=== PATIENT | male | born 1935 | race African-American/Black ===

== ENCOUNTER 2016-06-27 22:26 | Inpatient (IN) | payer MEDICARE, OTHER ==
--- NOTE | 2016-06-27 22:56 | PDOC ---
History of Present Illness - History of Present Illness Initial Comments: 06/27/16 22:57 The patient is an 80 year old male with history of hypertension, diabetes, and dementia, brought in by EMS for altered mental status. Per the patient's son, the patient seemed less responsive than his baseline this evening. Prior to this , the son last saw the patient this morning, when he had no acute complaints. On evaluation, the patient seems not very responsive, but denies any physical complaints. No fever or chills. No headache, paresthesias, or focal weakness. No nausea, vomiting, or diarrhea. NKDA Denies smoking, drinking, or drugs. <Melly Beyer - Last Filed: 06/28/16 00:40> - General History Source: Family (son) Exam Limitations: Dementia <Fabian Huitron - Last Filed: 06/28/16 00:47> - General Chief Complaint: Altered Mental Status Stated Complaint: AMS Time Seen by Provider: 06/27/16 22:48 Past History <Melly Beyer - Last Filed: 06/28/16 00:40> - Psycho/Social/Smoking Cessation Hx Suicidal Ideation: No Smoking History: Unknown if ever smoked Have you smoked in the past 12 months: No Information on smoking cessation initiated: No Hx Alcohol Use: No Drug/Substance Use Hx: No <Fabian Huitron - Last Filed: 06/28/16 00:47> - Past Medical History Allergies/Adverse Reactions: Allergies Allergy/AdvReac Type Severity Reaction Status Date / Time No Known Allergies Allergy Verified 06/27/16 22:51 Home Medications: Ambulatory Orders Glipizide 10 mg PO BID 06/27/16 Donepezil HCl [Aricept -] 10 mg PO DAILY 06/28/16 Furosemide 20 mg PO DAILY 06/28/16 Gabapentin 100 mg PO TID 06/28/16 Losartan Potassium 25 mg PO DAILY 06/28/16 Metformin HCl 500 mg BID 06/28/16 Pantoprazole Sodium [Protonix] 40 mg DAILY 06/28/16 Simvastatin 40 mg PO HS 06/28/16 Review of Systems - Review of Systems Able to Perform ROS?: Yes Comments:: 06/27/16 22:59 GENERAL/CONSTITUTIONAL: No fever or chills. No weakness. HEAD, EYES, EARS, NOSE AND THROAT: No change in vision. No ear pain or discharge. No sore throat CARDIOVASCULAR: No chest pain or shortness of breath. RESPIRATORY: No cough, wheezing, or hemoptysis. GASTROINTESTINAL: No nausea, vomiting, diarrhea or constipation. GENITOURINARY: No dysuria, frequency, or change in urination. MUSCULOSKELETAL: No joint or muscle swelling or pain. No neck or back pain. SKIN: No rash NEUROLOGIC: Altered mental status. No headache, vertigo, loss of consciousness, or change in strength/sensation. ENDOCRINE: No increased thirst. No abnormal weight change. HEMATOLOGIC/LYMPHATIC: No anemia, easy bleeding, or history of blood clots. ALLERGIC/IMMUNOLOGIC: No hives or skin allergy. <Melly Beyer - Last Filed: 06/28/16 00:40> *Physical Exam - Vital Signs Last Vital Signs Temp Pulse Resp BP Pulse Ox 76 14 150/118 100 06/27/16 22:47 06/27/16 22:47 06/27/16 22:47 06/27/16 22:47 - Physical Exam Comments: 06/27/16 23:00 GENERAL: Awake, alert, and fully oriented, in no acute distress HEAD: No signs of trauma EYES: PERRLA, EOMI, sclera anicteric, conjunctiva clear ENT: Auricles normal inspection, hearing grossly normal, nares patent, oropharynx clear without exudates. Moist mucosa NECK: Normal ROM, supple, no lymphadenopathy, JVD, or masses LUNGS: Breath sounds equal, clear to auscultation bilaterally. No wheezes, and no crackles HEART: Regular rate and rhythm, normal S1 and S2, no murmurs, rubs or gallops ABDOMEN: Soft, nontender, normoactive bowel sounds. No guarding, no rebound. No masses EXTREMITIES: Normal range of motion, no edema. No clubbing or cyanosis. No cords, erythema, or tenderness NEUROLOGICAL: Cranial nerves II through XII grossly intact. Normal speech, normal gait. Moving all four extremities. 5/5 motor strength, sensation intact throughout. SKIN: Warm, Dry, normal turgor, no rashes or lesions noted. <Melly Beyer - Last Filed: 06/28/16 00:40> - Vital Signs Last Vital Signs Temp Pulse Resp BP Pulse Ox 76 14 150/118 100 06/27/16 22:47 06/27/16 22:47 06/27/16 22:47 06/27/16 22:47 <Fabian Huitron - Last Filed: 06/28/16 00:47> Heart Score/ECG Review #1 06/27/16 23:08 EKG obtained 23:00 Normal sinus rhythm at 85 bpm. Left anterior fascicular block. Abnormal EKG. <Melly Beyer - Last Filed: 06/28/16 00:40> ED Treatment Course - LABORATORY CBC & Chemistry Diagram: 06/27/16 22:59 06/27/16 22:59 - RADIOLOGY Radiograph Interpretation: 06/28/16 00:09 CT of head, read and interpreted by Dr. Fatima, reveals no significant interval change or acute intracranial pathology. <Melly Beyer - Last Filed: 06/28/16 00:40> - LABORATORY CBC & Chemistry Diagram: 06/27/16 22:59 06/27/16 22:59 <Fabian Huitron - Last Filed: 06/28/16 00:47> Medical Decision Making - Medical Decision Making 06/28/16 00:28 Placed call to patient's PCP, Dr. Luis Balderas at [phone]. Awaiting call back. 06/28/16 00:40 Second call placed to Dr. Balderas. Awaiting call back. <Melly Beyer - Last Filed: 06/28/16 00:40> - Medical Decision Making 06/28/16 00:46 Dr. Huitron: The scribe's documentation has been prepared under my direction and personally reviewed by me in its entirery. I confirm that the note above accurately reflects all work, treatment, procedures, and medical decision making performed by me. Patient will be admitted for IV hydration and reevaluation. Spoke to patient's PCP who will admit to Med surg. <Fabian Huitron - Last Filed: 06/28/16 00:47> *DC/Admit/Observation/Transfer - Attestations Scribe Attestion: 06/27/16 23:02 Documentation prepared by Melly Beyer, acting as medical clerk for Fabian Huitron DO. <Melly Beyer - Last Filed: 06/28/16 00:40> - Discharge Dispostion Admit: Yes <Fabian Huitron - Last Filed: 06/28/16 00:47> Diagnosis at time of Disposition: Renal failure Altered mental status Qualifiers: Altered mental status type: unspecified Qualified Code(s): R41.82 - Altered mental status, unspecified - Referrals Referrals: Luis Balderas MD [Primary Care Provider] -
[2016-06-27 22:57] VITALS: BMI 28.0
[2016-06-27 23:27] LABS: VENOUS PH 7.34 (7.32-7.42)
[2016-06-27 23:28] LABS: VENOUS BLOOD GAS HCO3 26.2 meq/L (19-25)
[2016-06-27 23:37] LABS: BASOPHIL 0.6 % (0-2.0); MCH 25.9 pg (25.7-33.7); MCHC 32.1 g/dl (32.0-35.9); MEAN CELL VOLUME 80.6 fl (80-96); MEAN PLT VOLUME 8.9 fl (7.5-11.1); NEUTROPHILS 42.7 % (42.8-82.8); PLATELET COUNT 206 K/MM3 (134-434); RDW 14.8 % (11.9-15.9); WHITE BLOOD COUNT 4.8 K/mm3 (4.0-10.0)
[2016-06-27 23:47] LABS: INR 1.04 (0.82-1.09); PROTHROMBIN TIME (PATIENT) 11.5 SEC (9.98-11.88)
[2016-06-28] LABS: ALBUMIN 3.5 g/dl (3.4-5.0); CALCIUM 9.2 mg/dL (8.5-10.1); CREATININE 2.3 mg/dL (0.7-1.3)
[2016-06-28 00:04] LABS: BILIRUBIN,TOTAL 0.7 mg/dL (0.2-1.0); TOT PROT 6.9 g/dl (6.4-8.2); TROPONIN I 0.02 ng/ml (0.00-0.05)
[2016-06-28] MEDS ORDERED: SODIUM CHLORIDE 1,000 ML IV STA (00:12)
[2016-06-28] MEDS: SODIUM CHLORIDE 0.45% 1,000 ML IV SCH (01:00)
[2016-06-28] MEDS ORDERED: ACETAMINOPHEN 325 MG TABLET (FP) PO PRN (01:00)
[2016-06-28] MEDS ORDERED: glipiZIDE 5 MG TABLET (FP) ONE (07:12)
[2016-06-28] MEDS ORDERED: GABAPENTIN 100 MG CAPSULE (FP) ONE (07:12)
[2016-06-28] MEDS: GABAPENTIN 100 MG CAPSULE (FP) PO SCH ×3 (07:19→21:00)
[2016-06-28] MEDS: glipiZIDE 10 MG TABLET (FP) PO SCH ×2 (07:19→17:05)
[2016-06-28] MEDS ORDERED: PANTOPRAZOLE 40 MG TABLET (FP) ONE (09:07)
[2016-06-28] MEDS ORDERED: DONEPEZIL HCL 5 MG TABLET (FP) ONE (09:07)
[2016-06-28] MEDS ORDERED: LOSARTAN POTASSIUM 25 MG TABLET ONE (09:07)
[2016-06-28] MEDS: PANTOPRAZOLE 40 MG TABLET (FP) PO SCH (09:13)
[2016-06-28] MEDS: DONEPEZIL HCL 10 MG TABLET (FP) PO SCH (09:13)
--- NOTE | 2016-06-28 09:39 | HP ---
Admitting History and Physical - Primary Care Physician PCP: Luis Balderas - Admission Chief Complaint: AMS History of Present Illness: ER HISTORY History of Present Illness - History of Present Illness Initial Comments: 06/27/16 22:57 The patient is an 80 year old male with history of hypertension, diabetes, and dementia, brought in by EMS for altered mental status. Per the patient's son, the patient seemed less responsive than his baseline this evening. Prior to this , the son last saw the patient this morning, when he had no acute complaints. On evaluation, the patient seems not very responsive, but denies any physical complaints. No fever or chills. No headache, paresthesias, or focal weakness. No nausea, vomiting, or diarrhea. PT SEEN BY ME IN ER Pt is known to me from the office- does not remember me, he has no complaints. Just mumbles, not making sense. Baseline dementia, lives at home with son. Pt responds to commands . 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's Cardiovascular: Yes: HTN, Hyperlipdemia - Smoking History Smoking history: Unknown if ever smoked Have you smoked in the past 12 months: No - Alcohol/Substance Use Hx Alcohol Use: No Home Medications - Allergies Allergies/Adverse Reactions: Allergies Allergy/AdvReac Type Severity Reaction Status Date / Time No Known Allergies Allergy Verified 06/27/16 22:51 - Home Medications Home Medications: Ambulatory Orders Glipizide 10 mg PO BID 06/27/16 Donepezil HCl [Aricept -] 10 mg PO DAILY 06/28/16 Furosemide 20 mg PO DAILY 06/28/16 Gabapentin 100 mg PO TID 06/28/16 Losartan Potassium 25 mg PO DAILY 06/28/16 Metformin HCl 1,000 mg BID 06/28/16 Pantoprazole Sodium [Protonix] 40 mg DAILY 06/28/16 Simvastatin 40 mg PO HS 06/28/16 Review of Systems - Review of Systems Constitutional: denies: Chills, Fever, Lethargy, Loss of Appetite, Weakness Cardiovascular: denies: Chest Pain Respiratory: denies: Cough Gastrointestinal: denies: Abdominal Pain Genitourinary: denies: Burning, Dysuria Physical Examination Vital Signs: Vital Signs Temperature Pulse Rate 81 06/28/16 07:04 Respiratory Rate 22 06/28/16 07:04 Blood Pressure 148/81 06/28/16 07:04 O2 Sat by Pulse Oximetry (%) 99 06/28/16 07:04 Constitutional: Yes: No Distress, Calm Cardiovascular: Yes: Regular Rate and Rhythm Respiratory: Yes: Diminished Gastrointestinal: Yes: Normal Bowel Sounds, Soft, Abdomen, Obese. No: Distention, Tenderness Edema: No Neurological: Yes: Alert Labs: Laboratory Last Values WBC 4.8 K/mm3 (4.0-10.0) 06/27/16 22:59 RBC 5.45 M/mm3 (4.00-5.60) 06/27/16 22:59 Hgb 14.1 GM/dL (11.7-16.9) 06/27/16 22:59 Hct 44.0 % (35.4-49) 06/27/16 22:59 MCV 80.6 fl (80-96) 06/27/16 22:59 MCHC 32.1 g/dl (32.0-35.9) 06/27/16 22:59 RDW 14.8 % (11.9-15.9) 06/27/16 22:59 Plt Count 206 K/MM3 (134-434) 06/27/16 22:59 MPV 8.9 fl (7.5-11.1) 06/27/16 22:59 Neutrophils % 42.7 % (42.8-82.8) L 06/27/16 22:59 Lymphocytes % 44.2 % (8-40) H 06/27/16 22:59 Monocytes % 11.5 % (3.8-10.2) H 06/27/16 22:59 Eosinophils % 1.0 % (0-4.5) 06/27/16 22:59 Basophils % 0.6 % (0-2.0) 06/27/16 22:59 INR 1.04 (0.82-1.09) 06/27/16 22:59 VBG pH 7.34 (7.32-7.42) 06/27/16 23:17 POC VBG pCO2 50.0 mmHg (38-52) 06/27/16 23:17 POC VBG pO2 28.5 mmHg (28-48) 06/27/16 23:17 Mixed VBG HCO3 26.2 meq/L (19-25) H 06/27/16 23:17 Sodium 138 mmol/L (136-145) 06/27/16 22:59 Potassium 4.6 mmol/L (3.5-5.1) 06/27/16 22:59 Chloride 102 mmol/L (98-107) 06/27/16 22:59 Carbon Dioxide 25 mmol/L (21-32) 06/27/16 22:59 Anion Gap 11 (8-16) 06/27/16 22:59 BUN 28 mg/dL (7-18) H 06/27/16 22:59 Creatinine 2.3 mg/dL (0.7-1.3) H 06/27/16 22:59 Creat Clearance w eGFR 27.43 (>60) 06/27/16 22:59 Random Glucose 129 mg/dL (74-106) H 06/27/16 22:59 Calcium 9.2 mg/dL (8.5-10.1) 06/27/16 22:59 Total Bilirubin 0.7 mg/dL (0.2-1.0) 06/27/16 22:59 AST 32 U/L (15-37) 06/27/16 22:59 ALT 29 U/L (12-78) 06/27/16 22:59 Alkaline Phosphatase 70 U/L (45-117) 06/27/16 22:59 Creatine Kinase 185 IU/L (39-308) 06/27/16 22:59 Creatine Kinase Index 1.7 % (0.0-5.0) 06/27/16 22:59 CK-MB (CK-2) 3.158 ng/ml (0.5-3.6) 06/27/16 22:59 CK-MB (CK-2) Rel Index Cancelled 06/27/16 22:59 Troponin I 0.02 ng/ml (0.00-0.05) 06/27/16 22:59 Total Protein 6.9 g/dl (6.4-8.2) 06/27/16 22:59 Albumin 3.5 g/dl (3.4-5.0) 06/27/16 22:59 Blood Type B POSITIVE 06/27/16 22:59 Antibody Screen Negative 06/27/16 22:59 Imaging - Results Chest X-ray: Image Reviewed (no infiltrate) Cat Scan: Report Reviewed (Negative) EKG: Image Reviewed (sinus) Problem List - Problems (1) Altered mental status Code(s): R41.82 - ALTERED MENTAL STATUS, UNSPECIFIED Qualifiers: Altered mental status type: unspecified Qualified Code(s): R41.82 - Altered mental status, unspecified (2) Renal failure Code(s): N19 - UNSPECIFIED KIDNEY FAILURE (3) Dementia Code(s): F03.90 - UNSPECIFIED DEMENTIA WITHOUT BEHAVIORAL DISTURBANCE (4) HTN (hypertension) Code(s): I10 - ESSENTIAL (PRIMARY) HYPERTENSION Assessment/Plan PLAN Check UA and culture Hold off ARB Check kidney and bladder sonogram IV fluids check urine output DVT prophylaxis PT eval
[2016-06-28] MEDS ORDERED: LOSARTAN POTASSIUM 25 MG TABLET PO SCH (10:00)
[2016-06-28] MEDS: INSULIN SLIDING SCALE (NOVOLOG) 1 VIAL SQ SCH ×2 (12:56→17:05)
--- NOTE | 2016-06-28 16:06 | EKG ---
Test Reason : Blood Pressure : / mmHG Vent. Rate : 085 BPM Atrial Rate : 085 BPM P-R Int : 160 ms QRS Dur : 098 ms QT Int : 372 ms P-R-T Axes : 066 -71 023 degrees QTc Int : 442 ms NORMAL SINUS RHYTHM LEFT ANTERIOR FASCICULAR BLOCK ABNORMAL ECG WHEN COMPARED WITH ECG OF 16-FEB-2011 13:19, NONSPECIFIC T WAVE ABNORMALITY HAS REPLACED INVERTED T WAVES IN LATERAL LEADS Confirmed by SASCHA BURNHAM MD ([id number]) on 06/28/2016 4:06:03 PM Referred By: Confirmed By:SASCHA BURNHAM MD
[2016-06-28] MEDS ORDERED: LORAZEPAM CARPU-JECT 2 MG/ML DISP.SYRIN IVPUSH PRN (16:21)
[2016-06-28 17:33] LABS: URINE MARIJUANA THC NEGATIVE ng/ml (CUTOFF=50)
[2016-06-28 17:34] LABS: URINE APPEARANCE CLEAR; URINE BILIRUBIN NEGATIVE (NEGATIVE); URINE BLOOD NEGATIVE (NEGATIVE); URINE COLOR AMBER; URINE GLUCOSE (UA) 1+ (NEGATIVE); URINE KETONE TRACE (NEGATIVE); URINE LEUK ESTERASE NEGATIVE (NEGATIVE); URINE NITRITE NEGATIVE (NEGATIVE); URINE UROBILINOGEN NEGATIVE E.U./dl (0.2-1.0)
[2016-06-28 17:35] LABS: URINE PROTEIN 1+ (NEGATIVE)
[2016-06-28] MEDS ORDERED: PNEUMOC 13-VAL CONJ-DIP CRM/PF 0.5 ML DISP.SYRIN IM ONE (18:00)
[2016-06-28 19:17] LABS: URINE HYALINE CAST 6 /lpf; URINE MUCUS RARE; URINE RBC <1 /hpf (0-3); URINE WBC 1 /hpf (3-5)
[2016-06-28] MEDS: ATORVASTATIN CA 20 MG TABLET (FP) PO SCH (21:01)
[2016-06-28] MEDS: HEPARIN NA (PORCINE) 5,000 UNITS/ML 1ML VIAL SQ SCH (21:01)
[2016-06-29] MEDS: SODIUM CHLORIDE 0.45% 1,000 ML IV SCH
[2016-06-29] MEDS: INSULIN SLIDING SCALE (NOVOLOG) 1 VIAL SQ SCH ×3 (06:26→16:50)
[2016-06-29] MEDS: GABAPENTIN 100 MG CAPSULE (FP) PO SCH ×4 (06:28→21:08)
[2016-06-29] MEDS: glipiZIDE 10 MG TABLET (FP) PO SCH ×2 (06:28→16:50)
[2016-06-29] MEDS: PANTOPRAZOLE 40 MG TABLET (FP) PO SCH ×2 (11:36→12:52)
[2016-06-29] MEDS: HEPARIN NA (PORCINE) 5,000 UNITS/ML 1ML VIAL SQ SCH ×2 (11:36→21:08)
[2016-06-29] MEDS: DONEPEZIL HCL 10 MG TABLET (FP) PO SCH ×2 (11:36→12:52)
--- NOTE | 2016-06-29 12:49 | PN ---
Progress Note, Physician Chief Complaint: the patient is refusing his medications and IV fluids His [id number] is at his bedside and states that he is difficult to handle at home He also refused to go down for ultrasound of kidneys Straight catheter was placed yesterday and about 800 cc of urine was obtained - Current Medication List Current Medications: Active Medications Acetaminophen (Tylenol -) 650 mg PO Q6H PRN PRN Reason: FEVER OR PAIN Atorvastatin Calcium (Lipitor -) 20 mg PO HS [facility] Last Admin: 06/28/16 21:01 Dose: 20 mg Donepezil HCl (Aricept -) 10 mg PO DAILY [facility] Last Admin: 06/28/16 09:13 Dose: 10 mg Gabapentin (Neurontin -) 100 mg PO TID [facility] Last Admin: 06/29/16 06:28 Dose: Not Given Glipizide (Glucotrol -) 10 mg PO BIDAC [facility] Last Admin: 06/29/16 06:28 Dose: Not Given Heparin Sodium (Porcine) (Heparin -) 5,000 unit SQ BID [facility] Last Admin: 06/29/16 11:36 Dose: 5,000 unit Sodium Chloride (1/2 Normal Saline) 1,000 mls @ 100 mls/hr IV ASDIR [facility] Last Admin: 06/29/16 00:00 Dose: Not Given Insulin Aspart (Novolog Vial Sliding Scale -) 1 vial SQ TIDAC [facility] PRN Reason: Protocol Last Admin: 06/29/16 11:49 Dose: Not Given Lorazepam (Ativan Injection -) 0.5 mg IVPUSH Q8H PRN PRN Reason: ANXIETY Last Admin: 06/28/16 17:39 Dose: 0.5 mg Pantoprazole Sodium (Protonix -) 40 mg PO DAILY [facility] Last Admin: 06/28/16 09:13 Dose: 40 mg - Objective Vital Signs: Vital Signs Temperature 97.7 F 06/29/16 11:44 Pulse Rate 77 06/29/16 11:44 Respiratory Rate 18 06/29/16 11:44 Blood Pressure 131/58 06/29/16 11:44 O2 Sat by Pulse Oximetry (%) 97 06/28/16 22:00 Constitutional: Yes: No Distress, Other (confused) Cardiovascular: Yes: Regular Rate and Rhythm Respiratory: Yes: CTA Bilaterally Gastrointestinal: Yes: Normal Bowel Sounds, Soft. No: Distention, Tenderness Edema: No Psychiatric: Yes: Alert Labs: INR, PTT INR 1.04 (0.82-1.09) 06/27/16 22:59 Problem List - Problems (1) Altered mental status Code(s): R41.82 - ALTERED MENTAL STATUS, UNSPECIFIED Qualifiers: Altered mental status type: unspecified Qualified Code(s): R41.82 - Altered mental status, unspecified (2) Renal failure Code(s): N19 - UNSPECIFIED KIDNEY FAILURE (3) Dementia Code(s): F03.90 - UNSPECIFIED DEMENTIA WITHOUT BEHAVIORAL DISTURBANCE (4) HTN (hypertension) Code(s): I10 - ESSENTIAL (PRIMARY) HYPERTENSION Assessment/Plan PLAN urine culture pending Empiric antibioticsLevaquin Hold off ARB BMP to be done todayI had to stand next to the patient to get it drawn, he had refused labs this morning Check kidney and bladder sonogram patient does not want an IV line, encourage oral fluid intake check urine output I explained to his [id number] that he will need placement DVT prophylaxis PT eval
[2016-06-29] MEDS: LORAZEPAM CARPU-JECT 2 MG/ML DISP.SYRIN IM PRN ×2 (13:57→21:50)
[2016-06-29 14:44] LABS: CREATININE 0.9 mg/dL (0.7-1.3)
[2016-06-29] MEDS: LEVOFLOXACIN 500 MG TABLET (FP) PO SCH (16:50)
[2016-06-29] MEDS: ATORVASTATIN CA 20 MG TABLET (FP) PO SCH (21:08)
[2016-06-30] MEDS: SODIUM CHLORIDE 0.45% 1,000 ML IV SCH (06:04)
[2016-06-30] MEDS: GABAPENTIN 100 MG CAPSULE (FP) PO SCH ×3 (06:04→22:07)
[2016-06-30] MEDS: glipiZIDE 10 MG TABLET (FP) PO SCH ×2 (06:05→16:44)
[2016-06-30] MEDS: INSULIN SLIDING SCALE (NOVOLOG) 1 VIAL SQ SCH ×3 (06:05→16:45)
--- NOTE | 2016-06-30 09:28 | PN ---
Progress Note (short form) - Note Progress Note: Subjective Patient seen and examined. Chart reviewed. Awake Pleasantly confused No distress Objective Last Vital Signs Temp Pulse Resp BP Pulse Ox 97.5 F L 84 20 139/83 95 06/30/16 07:54 06/30/16 07:54 06/30/16 07:54 06/30/16 07:54 06/29/16 21:00 Labs: CBC, BMP 06/27/16 22:59 06/29/16 13:30 Problem List - Problems (1) Altered mental status Code(s): R41.82 - ALTERED MENTAL STATUS, UNSPECIFIED Qualifiers: Altered mental status type: unspecified Qualified Code(s): R41.82 - Altered mental status, unspecified (2) Renal failure Code(s): N19 - UNSPECIFIED KIDNEY FAILURE (3) Dementia Code(s): F03.90 - UNSPECIFIED DEMENTIA WITHOUT BEHAVIORAL DISTURBANCE (4) HTN (hypertension) Code(s): I10 - ESSENTIAL (PRIMARY) HYPERTENSION Physical Exam Constitutional: Yes: No Distress, Other (confused) Cardiovascular: Yes: Regular Rate and Rhythm Respiratory: Yes: CTA Bilaterally Gastrointestinal: Yes: Normal Bowel Sounds, Soft. No: Distention, Tenderness Edema: No Psychiatric: Yes: Alert Assessment and Plan Clinically stable. Urine culture negative. CXR reviewed and negative. Will stop abx. Start on Flomax. Will need placement. Medically stable for discharge. Will discuss with shelter case manager. Documentation prepared by Kristi Luke, acting as a nuclear medical tech for Luis Balderas MD.
[2016-06-30] MEDS: LEVOFLOXACIN 500 MG TABLET (FP) PO SCH (09:55)
[2016-06-30] MEDS: DONEPEZIL HCL 10 MG TABLET (FP) PO SCH (09:55)
[2016-06-30] MEDS: PANTOPRAZOLE 40 MG TABLET (FP) PO SCH (09:55)
[2016-06-30] MEDS: HEPARIN NA (PORCINE) 5,000 UNITS/ML 1ML VIAL SQ SCH ×2 (09:55→22:06)
--- NOTE | 2016-06-30 12:27 | CON.PSY ---
Psychiatry Consult Chief Complaint: refusing to answer questions Symptoms: reports: Decreased Motivation, Memory Impairment, Oppositionalism - Previous Psychiatric Treatment Outpatient: None Inpatient: None - Previous Substance Abuse Treatment Outpatient: None Inpatient: None - Current Medications Current Medications: Active Medications Acetaminophen (Tylenol -) 650 mg PO Q6H PRN PRN Reason: FEVER OR PAIN Atorvastatin Calcium (Lipitor -) 20 mg PO HS [facility] Last Admin: 06/29/16 21:08 Dose: Not Given Donepezil HCl (Aricept -) 10 mg PO DAILY [facility] Last Admin: 06/30/16 09:55 Dose: 10 mg Gabapentin (Neurontin -) 100 mg PO TID [facility] Last Admin: 06/30/16 06:04 Dose: Not Given Glipizide (Glucotrol -) 10 mg PO BIDAC [facility] Last Admin: 06/30/16 06:05 Dose: Not Given Heparin Sodium (Porcine) (Heparin -) 5,000 unit SQ BID [facility] Last Admin: 06/30/16 09:55 Dose: Not Given Sodium Chloride (1/2 Normal Saline) 1,000 mls @ 100 mls/hr IV ASDIR [facility] Last Admin: 06/30/16 06:04 Dose: Not Given Insulin Aspart (Novolog Vial Sliding Scale -) 1 vial SQ TIDAC [facility] PRN Reason: Protocol Last Admin: 06/30/16 11:41 Dose: Not Given Lorazepam (Ativan Injection -) 0.5 mg IM Q8H PRN PRN Reason: ANXIETY Last Admin: 06/29/16 21:50 Dose: 0.5 mg Pantoprazole Sodium (Protonix -) 40 mg PO DAILY [facility] Last Admin: 06/30/16 09:55 Dose: 40 mg Tamsulosin HCl (Flomax -) 0.4 mg PO DAILY@0830 [facility] - Allergies Allergies: Allergies Allergy/AdvReac Type Severity Reaction Status Date / Time No Known Allergies Allergy Verified 06/27/16 22:51 - Current Living Status Usual Living Arrangement: Alone - Current Mental Status Evaluation Appearance: Disheveled Attitude: Guarded - Affect Affect: Constrictive Appropriateness: Not Appropriate - Mood Mood: Irritable - Speech/Language Expressive: Coherent - Psychomotor Activity Psychomotor Activity: Slowed - Thought Process Thought Process: Circumstantial - Thought Content Hallucinations: Absent Delusions: Absent - Self Perception Self Perception: No Impairment - Cognition Attention: Alert Orientation: Time Memory, Short Term: 2/3 Memory, Remote with Promptin/3 - Concentration Serial Sevens Intact: No Simple Calculations Intact: No - Abstraction Proverb Interpretation: Impaired Judgement: Minimally Impaired - Insight Insight: Intact - Impulse Control Impulse Control: Minimally Impaired - Suicidal Ideation Suicidal Ideation: No - Homicidal Ideation Homicidal Ideation: No Assessment/Plan 1) Discharge patient when medically stable. oppositional behaviour.
[2016-06-30] MEDS: LORAZEPAM CARPU-JECT 2 MG/ML DISP.SYRIN IM PRN (14:58)
[2016-06-30] MEDS ORDERED: PT OWN MED DRAWER 7, Y5N ONE (15:03)
[2016-06-30] MEDS: ATORVASTATIN CA 20 MG TABLET (FP) PO SCH (22:07)
[2016-07-01] MEDS: SODIUM CHLORIDE 0.45% 1,000 ML IV SCH (01:00)
[2016-07-01] MEDS: GABAPENTIN 100 MG CAPSULE (FP) PO SCH ×3 (06:56→22:11)
[2016-07-01] MEDS: INSULIN SLIDING SCALE (NOVOLOG) 1 VIAL SQ SCH ×3 (06:56→17:10)
[2016-07-01] MEDS: glipiZIDE 10 MG TABLET (FP) PO SCH ×2 (06:56→17:10)
[2016-07-01] MEDS: PANTOPRAZOLE 40 MG TABLET (FP) PO SCH ×2 (10:40→12:35)
[2016-07-01] MEDS: DONEPEZIL HCL 10 MG TABLET (FP) PO SCH ×2 (10:40→12:34)
[2016-07-01] MEDS: HEPARIN NA (PORCINE) 5,000 UNITS/ML 1ML VIAL SQ SCH ×2 (10:40→22:10)
[2016-07-01] MEDS: TAMSULOSIN HCL 0.4 MG CAP.ER.24H (FP) PO SCH ×2 (10:40→12:35)
--- NOTE | 2016-07-01 11:21 | PN ---
Progress Note (short form) - Note Progress Note: Progress Note: Subjective Patient seen and examined. Awake / comfortable refuses care Pleasantly confused No distress Vital Signs Period Temp Pulse Resp BP Sys/Farias Pulse Ox Last 24 Hr 98.2 F-98.2 F 79-82 20-20 148-159/77-80 96 Active Medications Acetaminophen (Tylenol -) 650 mg PO Q6H PRN PRN Reason: FEVER OR PAIN Atorvastatin Calcium (Lipitor -) 20 mg PO HS [facility] Last Admin: 06/30/16 22:07 Dose: Not Given Donepezil HCl (Aricept -) 10 mg PO DAILY [facility] Last Admin: 07/01/16 10:40 Dose: Not Given Gabapentin (Neurontin -) 100 mg PO TID [facility] Last Admin: 07/01/16 06:56 Dose: Not Given Glipizide (Glucotrol -) 10 mg PO BIDAC [facility] Last Admin: 07/01/16 06:56 Dose: Not Given Heparin Sodium (Porcine) (Heparin -) 5,000 unit SQ BID [facility] Last Admin: 07/01/16 10:40 Dose: Not Given Sodium Chloride (1/2 Normal Saline) 1,000 mls @ 100 mls/hr IV ASDIR [facility] Last Admin: 07/01/16 01:00 Dose: Not Given Insulin Aspart (Novolog Vial Sliding Scale -) 1 vial SQ TIDAC [facility] PRN Reason: Protocol Last Admin: 07/01/16 06:56 Dose: Not Given Lorazepam (Ativan Injection -) 0.5 mg IM Q8H PRN PRN Reason: ANXIETY Last Admin: 06/30/16 14:58 Dose: 0.5 mg Pantoprazole Sodium (Protonix -) 40 mg PO DAILY [facility] Last Admin: 07/01/16 10:40 Dose: Not Given Tamsulosin HCl (Flomax -) 0.4 mg PO DAILY@0830 [facility] Last Admin: 07/01/16 10:40 Dose: Not Given Problem List - Problems (1) Altered mental status Code(s): R41.82 - ALTERED MENTAL STATUS, UNSPECIFIED Qualifiers: Altered mental status type: unspecified Qualified Code(s): R41.82 - Altered mental status, unspecified (2) Renal failure Code(s): N19 - UNSPECIFIED KIDNEY FAILURE (3) Dementia Code(s): F03.90 - UNSPECIFIED DEMENTIA WITHOUT BEHAVIORAL DISTURBANCE (4) HTN (hypertension) Code(s): I10 - ESSENTIAL (PRIMARY) HYPERTENSION Physical Exam Constitutional: Yes: No Distress, Other (confused) Cardiovascular: Yes: Regular Rate and Rhythm Respiratory: Yes: CTA Bilaterally Gastrointestinal: Yes: Normal Bowel Sounds, Soft. No: Distention, Tenderness Edema: No Psychiatric: Yes: Alert Assessment and Plan Clinically stable. psych consult noted Will need placement. Medically stable for discharge. discussed with binder caser. check pth level as has h/o hyperparathyroidism check rpr
[2016-07-01] MEDS: ATORVASTATIN CA 20 MG TABLET (FP) PO SCH (22:10)
[2016-07-02] MEDS: SODIUM CHLORIDE 0.45% 1,000 ML IV SCH (01:17)
[2016-07-02] MEDS: GABAPENTIN 100 MG CAPSULE (FP) PO SCH ×2 (06:17→15:58)
[2016-07-02] MEDS: glipiZIDE 10 MG TABLET (FP) PO SCH ×2 (06:17→16:39)
[2016-07-02] MEDS: INSULIN SLIDING SCALE (NOVOLOG) 1 VIAL SQ SCH ×3 (06:18→16:39)
[2016-07-02] MEDS: TAMSULOSIN HCL 0.4 MG CAP.ER.24H (FP) PO SCH (08:03)
[2016-07-02] MEDS: HEPARIN NA (PORCINE) 5,000 UNITS/ML 1ML VIAL SQ SCH ×2 (09:58→23:00)
[2016-07-02] MEDS: DONEPEZIL HCL 10 MG TABLET (FP) PO SCH ×2 (09:58→15:58)
[2016-07-02] MEDS: PANTOPRAZOLE 40 MG TABLET (FP) PO SCH ×2 (09:58→15:58)
--- NOTE | 2016-07-02 13:25 | PN ---
Progress Note (short form) - Note Progress Note: awake/ confused refuses treatment/ blood tests Vital Signs Temp 98.0 F 07/01/16 22:14 Pulse 81 07/02/16 10:00 Resp 18 07/02/16 10:00 BP 155/81 07/02/16 10:00 Pulse Ox 97 07/01/16 21:00 Intake & Output 07/01/16 07/02/16 07/02/16 23:59 11:59 23:59 Intake Total 0 Output Total 0 Balance 0 Intake: Oral 0 Output: Urine 0 Void 0 Other: Voiding Method Incontinent Incontinent # Unmeasured Voids Void 0 Bowel Movement No: 07/01/2016 # Bowel Movements 0 Active Medications Acetaminophen (Tylenol -) 650 mg PO Q6H PRN PRN Reason: FEVER OR PAIN Atorvastatin Calcium (Lipitor -) 20 mg PO HS [facility] Last Admin: 07/01/16 22:10 Dose: Not Given Donepezil HCl (Aricept -) 10 mg PO DAILY [facility] Last Admin: 07/02/16 09:58 Dose: Not Given Gabapentin (Neurontin -) 100 mg PO TID [facility] Last Admin: 07/02/16 06:17 Dose: Not Given Glipizide (Glucotrol -) 10 mg PO BIDAC [facility] Last Admin: 07/02/16 06:17 Dose: Not Given Heparin Sodium (Porcine) (Heparin -) 5,000 unit SQ BID [facility] Last Admin: 07/02/16 09:58 Dose: Not Given Sodium Chloride (1/2 Normal Saline) 1,000 mls @ 100 mls/hr IV ASDIR [facility] Last Admin: 07/02/16 01:17 Dose: Not Given Insulin Aspart (Novolog Vial Sliding Scale -) 1 vial SQ TIDAC [facility] PRN Reason: Protocol Last Admin: 07/02/16 10:58 Dose: Not Given Pantoprazole Sodium (Protonix -) 40 mg PO DAILY [facility] Last Admin: 07/02/16 09:58 Dose: Not Given Tamsulosin HCl (Flomax -) 0.4 mg PO DAILY@0830 [facility] Last Admin: 07/02/16 08:03 Dose: Not Given Physical Exam Constitutional: Yes: No Distress, Other (confused) Cardiovascular: Yes: Regular Rate and Rhythm Respiratory: Yes: CTA Bilaterally Gastrointestinal: Yes: Normal Bowel Sounds, Soft. No: Distention, Tenderness Edema: No Psychiatric: Yes: Alert Assessment and Plan Condition same psych consult noted Will need placement. Medically stable for discharge. discussed with keycase assembler. will follow
[2016-07-02] MEDS ORDERED: LORAZEPAM CARPU-JECT 2 MG/ML DISP.SYRIN IVPUSH PRN (17:03)
[2016-07-02] MEDS ORDERED: LORAZEPAM CARPU-JECT 2 MG/ML DISP.SYRIN IM PRN (17:04)
[2016-07-02] MEDS: ATORVASTATIN CA 20 MG TABLET (FP) PO SCH (23:00)
[2016-07-03] MEDS: GABAPENTIN 100 MG CAPSULE (FP) PO SCH ×5 (00:47→16:05)
[2016-07-03] MEDS: glipiZIDE 10 MG TABLET (FP) PO SCH ×2 (06:25→17:14)
[2016-07-03] MEDS: INSULIN SLIDING SCALE (NOVOLOG) 1 VIAL SQ SCH ×3 (06:25→17:14)
[2016-07-03] MEDS: HEPARIN NA (PORCINE) 5,000 UNITS/ML 1ML VIAL SQ SCH ×2 (09:56→21:48)
[2016-07-03] MEDS: PANTOPRAZOLE 40 MG TABLET (FP) PO SCH (09:56)
[2016-07-03] MEDS: DONEPEZIL HCL 10 MG TABLET (FP) PO SCH (09:57)
[2016-07-03] MEDS: TAMSULOSIN HCL 0.4 MG CAP.ER.24H (FP) PO SCH (09:57)
--- NOTE | 2016-07-03 10:19 | PN ---
Progress Note (short form) - Note Progress Note: Subjective Patient seen and examined. Awake and confused No distress. Not cooperative with treatment. Refuses blood tests and medications. Objective Last Vital Signs Temp Pulse Resp BP Pulse Ox 97.5 F L 83 18 141/89 97 07/03/16 09:05 07/03/16 09:05 07/03/16 09:05 07/03/16 09:05 07/01/16 21:00 CBC, BMP 06/27/16 22:59 06/29/16 13:30 Laboratory Results - last 24 hr 07/03/16 06:00 POC Glucometer 136 Physical Exam Constitutional: Yes: No Distress, Other (confused) Cardiovascular: Yes: Regular Rate and Rhythm Respiratory: Yes: CTA Bilaterally Gastrointestinal: Yes: Normal Bowel Sounds, Soft. No: Distention, Tenderness Edema: No Psychiatric: Yes: Alert Assessment and Plan Condition same psych consult noted Will need placement. Medically stable for discharge. discussed with nurse outreach case manager. They are having difficulty in finding placement. Patient is not safe for d/c to home at present. Will consult neurology also. I had ordered RPR and PTH level but patient had refused blood work. Will follow. Will discuss with family also. Documentation prepared by Cleo Charles, acting as a certified ophthalmic medical technician for Luis Balderas MD.
[2016-07-03] MEDS: SODIUM CHLORIDE 0.45% 1,000 ML IV SCH (11:33)
--- NOTE | 2016-07-03 19:17 | CONSULT ---
Consult - text type - Consultation Consultation Note: NEUROLOGY CONSULTATION is greatly appreciated: This 80 yo RH man lives with his son and his family. History obtained from son at bedside. PMH sig for HTN, DM, Chol, GERD and OMS ("Dementia.") Walks with walker at home. Maintained on glipizide, losartan, furosamide, metformin, pantoprazole, simvastatin, gabapentin (100 TID) and donepezil (10 mg/day). Patient has had at least 4 years of slowly progressing cognitive decline. In day program (3-4 years). Had MRI of brain (2013) showing atrophy and diffuse, periventricular and subcortical microvascular changes. Now admitted after few weeks of accelerated decline, refusing foods, meds and even fluids x [address] of head (reviewed): Moderate atrophy with scattered microvascular changes. No acute CVA's bleeds, etc. Labs sig for dehydration initially, now improved. Initially had urinary retention. Now on tamsulosin. TIMOTHY: No evidence of external head trauma. No bruits. Cor reg NEURO: Awake, hyperalert. poorly attentive. Follows simple commands. Gibberish speech. + Glabella, snout, suck. CN II-XII: Normal without nystagmus. Motor: No drift, tremor or cogwheeling. Normal strength. Reflexes depressed symmetrically. Toes downgoing. Coord: No FTN dystaxia Sensory: Normal. Gait: Wide-based, variable, unsteady. IMP: Moderately severe, Bilateral Cerebral Dysfunction (OMS, Chronic) Most c/w Alzheimer's Disease (AD). Recent deterioration suggests Toxic-metabolic worsening. R/O Wernicke's. SUGGEST: Check B12, B1 (thiamine), TSH, RPR, ESR, CRP, Ammonia levels. Empirically give thiamine parenterally: 250 mg in 100 cc NS over 1 hr q 8 hrs x 3 days. If patient refuses meds, IV's, testing, etc, give Haldol .5 mg IM q 2 hrs until calmer. Begin donepezil 5 mg PO q AM. Thank you very much, James Pace MD
[2016-07-03] MEDS: THIAMINE HCL 200 MG/2 ML VIAL IVPB SCH (21:48)
[2016-07-03] MEDS: ATORVASTATIN CA 20 MG TABLET (FP) PO SCH (21:48)
[2016-07-04] MEDS: SODIUM CHLORIDE 0.45% 1,000 ML IV SCH (01:47)
[2016-07-04] MEDS ORDERED: PT OWN MED DRAWER 7, Y5N ONE (05:24)
[2016-07-04] MEDS: INSULIN SLIDING SCALE (NOVOLOG) 1 VIAL SQ SCH ×3 (06:17→16:10)
[2016-07-04] MEDS: THIAMINE HCL 200 MG/2 ML VIAL IVPB SCH (06:17)
[2016-07-04] MEDS: glipiZIDE 10 MG TABLET (FP) PO SCH ×2 (06:17→16:10)
[2016-07-04] MEDS ORDERED: LORAZEPAM CARPU-JECT 2 MG/ML DISP.SYRIN IM PRN (09:10)
[2016-07-04] MEDS: TAMSULOSIN HCL 0.4 MG CAP.ER.24H (FP) PO SCH (09:16)
[2016-07-04] MEDS: HEPARIN NA (PORCINE) 5,000 UNITS/ML 1ML VIAL SQ SCH ×2 (11:01→21:32)
[2016-07-04] MEDS: DONEPEZIL HCL 10 MG TABLET (FP) PO SCH (11:01)
[2016-07-04] MEDS: PANTOPRAZOLE 40 MG TABLET (FP) PO SCH (11:01)
[2016-07-04] MEDS ORDERED: HALOPERIDOL LACTATE 5 MG/ML IM PRN (11:06)
--- NOTE | 2016-07-04 11:12 | PN ---
Progress Note, Physician Chief Complaint: Awake and alert was combative before no distress - Current Medication List Current Medications: Active Medications Acetaminophen (Tylenol -) 650 mg PO Q6H PRN PRN Reason: FEVER OR PAIN Atorvastatin Calcium (Lipitor -) 20 mg PO HS REPLACED BY [facility] Last Admin: 07/03/16 21:48 Dose: Not Given Donepezil HCl (Aricept -) 10 mg PO DAILY REPLACED BY [facility] Last Admin: 07/04/16 11:01 Dose: Not Given Glipizide (Glucotrol -) 10 mg PO BIDAC REPLACED BY [facility] Last Admin: 07/04/16 06:17 Dose: Not Given Haloperidol (Haldol Injection (Fast Acting) -) 0.5 mg IM Q4H PRN PRN Reason: AGITATION Heparin Sodium (Porcine) (Heparin -) 5,000 unit SQ BID REPLACED BY [facility] Last Admin: 07/04/16 11:01 Dose: Not Given Sodium Chloride (1/2 Normal Saline) 1,000 mls @ 100 mls/hr IV ASDIR REPLACED BY [facility] Last Admin: 07/04/16 01:47 Dose: Not Given Insulin Aspart (Novolog Vial Sliding Scale -) 1 vial SQ TIDAC REPLACED BY [facility] PRN Reason: Protocol Last Admin: 07/04/16 11:01 Dose: Not Given Lorazepam (Ativan Injection -) 1 mg IM Q8H PRN PRN Reason: ANXIETY Pantoprazole Sodium (Protonix -) 40 mg PO DAILY REPLACED BY [facility] Last Admin: 07/04/16 11:01 Dose: Not Given Tamsulosin HCl (Flomax -) 0.4 mg PO DAILY@0830 REPLACED BY [facility] Last Admin: 07/04/16 09:16 Dose: Not Given Thiamine HCl (Vitamin B1 Injection -) 200 mg IVPB TID REPLACED BY [facility] Stop: 07/06/16 14:01 Last Admin: 07/04/16 06:17 Dose: Not Given - Objective Vital Signs: Vital Signs Temperature 98.1 F 07/03/16 22:15 Pulse Rate 87 07/04/16 09:47 Respiratory Rate 18 07/04/16 09:47 Blood Pressure 149/87 07/04/16 09:47 O2 Sat by Pulse Oximetry (%) 97 07/01/16 21:00 Constitutional: Yes: No Distress, Calm Cardiovascular: Yes: Regular Rate and Rhythm Respiratory: Yes: Diminished Gastrointestinal: Yes: Normal Bowel Sounds, Soft. No: Distention, Tenderness Edema: No Psychiatric: Yes: Alert Labs: CBC, BMP 06/29/16 13:30 INR, PTT INR 1.04 (0.82-1.09) 06/27/16 22:59 Problem List - Problems (1) Altered mental status Code(s): R41.82 - ALTERED MENTAL STATUS, UNSPECIFIED Qualifiers: Altered mental status type: unspecified Qualified Code(s): R41.82 - Altered mental status, unspecified (2) Renal failure Code(s): N19 - UNSPECIFIED KIDNEY FAILURE (3) Dementia Code(s): F03.90 - UNSPECIFIED DEMENTIA WITHOUT BEHAVIORAL DISTURBANCE (4) HTN (hypertension) Code(s): I10 - ESSENTIAL (PRIMARY) HYPERTENSION Assessment/Plan PLAN Neurology evaluation noted urine culture negative off antibiotics pt refusing meds calm today on Ativan and haldol PRN patient does not want an IV line, encourage oral fluid intake check urine output spoke with upper caser-- he is unable to get transferred to a facility due to insurance issues , family willing to take him home when it is time for discharge DVT prophylaxis PT eval
[2016-07-04] MEDS: THIAMINE HCL 200 MG/2 ML VIAL IM SCH ×2 (14:20→21:32)
--- NOTE | 2016-07-04 14:36 | DS ---
Physical Examination Vital Signs: Vital Signs Temperature 98.1 F 07/03/16 22:15 Pulse Rate 87 07/04/16 09:47 Respiratory Rate 18 07/04/16 09:47 Blood Pressure 149/87 07/04/16 09:47 O2 Sat by Pulse Oximetry (%) 97 07/01/16 21:00 Labs: CBC, BMP 06/29/16 13:30 Discharge Summary Reason For Visit: AMS RENAL FAILURE DEHYDRATION Current Active Problems Altered mental status (Acute) Dementia (Acute) HTN (hypertension) (Acute) Renal failure (Acute) Hospital Course: see progress note Condition: Improved - Instructions Referrals: Luis Balderas MD [Primary Care Provider] - Disposition: HOME - Home Medications Comprehensive Discharge Medication List: Ambulatory Orders Glipizide 10 mg PO BID 06/27/16 Donepezil HCl [Aricept -] 10 mg PO DAILY 06/28/16 Gabapentin 100 mg PO TID 06/28/16 Losartan Potassium 25 mg PO DAILY 06/28/16 Simvastatin 40 mg PO HS 06/28/16 Acetaminophen [Tylenol .Regular Strength -] 650 mg PO Q6H PRN #0 tablet Atorvastatin Ca [Lipitor] 20 mg PO HS tablet 06/30/16 Glipizide [Glucotrol -] 10 mg PO BIDAC tablet 06/30/16 Tamsulosin HCl [Flomax -] 0.4 mg PO DAILY@0830 cap.er.24h 06/30/16 Metformin HCl 500 mg PO BID #0 07/04/16 Pantoprazole Sodium [Protonix] 40 mg PO DAILY #0 07/04/16 Thiamine HCl [B-1] 100 mg PO DAILY #60 tablet 07/04/16
[2016-07-04] MEDS: ATORVASTATIN CA 20 MG TABLET (FP) PO SCH (21:32)
[2016-07-05] MEDS: THIAMINE HCL 200 MG/2 ML VIAL IM SCH ×3 (06:07→22:14)
[2016-07-05] MEDS: glipiZIDE 10 MG TABLET (FP) PO SCH ×2 (06:07→17:53)
[2016-07-05] MEDS: INSULIN SLIDING SCALE (NOVOLOG) 1 VIAL SQ SCH ×3 (06:07→17:53)
[2016-07-05] MEDS: TAMSULOSIN HCL 0.4 MG CAP.ER.24H (FP) PO SCH ×2 (10:09→22:54)
[2016-07-05] MEDS: DONEPEZIL HCL 10 MG TABLET (FP) PO SCH ×2 (10:09→22:54)
[2016-07-05] MEDS: PANTOPRAZOLE 40 MG TABLET (FP) PO SCH (10:10)
[2016-07-05] MEDS: HEPARIN NA (PORCINE) 5,000 UNITS/ML 1ML VIAL SQ SCH ×2 (10:10→22:53)
--- NOTE | 2016-07-05 11:22 | PN ---
Progress Note (short form) - Note Progress Note: Vital Signs - 24 hr Family did not take pt home yesterday Pt unable to get NH placement due to insurance issues Calm now But he wont allow labs or further testing Pt ambulates to the bathroom to urinate 07/04/16 07/04/16 07/05/16 19:40 21:00 09:22 Temperature 98.0 F 97.8 F Pulse Rate 80 86 Respiratory 20 18 Rate Blood Pressure 150/82 131/90 O2 Sat by Pulse 97 Oximetry (%) Current Medications Generic Name Dose Route Start Last Admin Trade Name Freq PRN Reason Stop Dose Admin Acetaminophen 650 mg 06/28/16 01:00 Tylenol - PO Q6H PRN FEVER OR PAIN Atorvastatin Calcium 20 mg 06/28/16 22:00 07/04/16 21:32 Lipitor - PO Not Given HS [facility] Donepezil HCl 10 mg 06/28/16 10:00 07/05/16 10:09 Aricept - PO Not Given DAILY [facility] Glipizide 10 mg 06/28/16 07:00 07/05/16 06:07 Glucotrol - PO Not Given BIDAC [facility] Haloperidol 0.5 mg 07/04/16 11:06 07/04/16 11:57 Haldol Injection (Fast Acting) - IM 0.5 mg Q4H PRN Administration AGITATION Heparin Sodium (Porcine) 5,000 unit 06/28/16 22:00 07/05/16 10:10 Heparin - SQ Not Given BID [facility] Insulin Aspart 1 vial 06/28/16 11:00 07/05/16 06:07 Novolog Vial Sliding Scale - SQ Not Given TIDAC [facility] Protocol Lorazepam 1 mg 07/04/16 09:10 Ativan Injection - IM Q8H PRN ANXIETY Pantoprazole Sodium 40 mg 06/28/16 10:00 07/05/16 10:10 Protonix - PO Not Given DAILY [facility] Tamsulosin HCl 0.4 mg 07/01/16 08:30 07/05/16 10:09 Flomax - PO Not Given DAILY@0830 [facility] Thiamine HCl 200 mg 07/04/16 14:00 07/05/16 06:07 Vitamin B1 Injection - IM 07/07/16 06:01 Not Given TID [facility] S1 S2 RRR Lungs clear Abd- soft, NT, ND, BS+ No edema PLAN -- continue with meds -- pt not allowing labs to be drawn -- spoke with pt's son Alcon today, discussed with him about pt's advanced dementia and the need for supportive care. I explained to him about his insurance not having SNF benefits. -- He is willing to take the pt home and possibly have home care or private pay for home care Problem List - Problems (1) Altered mental status Code(s): R41.82 - ALTERED MENTAL STATUS, UNSPECIFIED Qualifiers: Altered mental status type: unspecified Qualified Code(s): R41.82 - Altered mental status, unspecified (2) Renal failure Code(s): N19 - UNSPECIFIED KIDNEY FAILURE (3) Dementia Code(s): F03.90 - UNSPECIFIED DEMENTIA WITHOUT BEHAVIORAL DISTURBANCE (4) HTN (hypertension) Code(s): I10 - ESSENTIAL (PRIMARY) HYPERTENSION
[2016-07-05] MEDS: ATORVASTATIN CA 20 MG TABLET (FP) PO SCH (22:54)
[2016-07-06] MEDS: THIAMINE HCL 200 MG/2 ML VIAL IM SCH ×3 (06:17→23:24)
[2016-07-06] MEDS: INSULIN SLIDING SCALE (NOVOLOG) 1 VIAL SQ SCH ×3 (06:18→17:36)
[2016-07-06] MEDS: glipiZIDE 10 MG TABLET (FP) PO SCH ×2 (06:18→17:36)
[2016-07-06] MEDS: TAMSULOSIN HCL 0.4 MG CAP.ER.24H (FP) PO SCH (08:57)
[2016-07-06] MEDS: DONEPEZIL HCL 10 MG TABLET (FP) PO SCH (09:47)
[2016-07-06] MEDS: HEPARIN NA (PORCINE) 5,000 UNITS/ML 1ML VIAL SQ SCH ×2 (09:48→23:24)
[2016-07-06] MEDS: PANTOPRAZOLE 40 MG TABLET (FP) PO SCH (09:48)
--- NOTE | 2016-07-06 11:08 | PN ---
Progress Note (short form) - Note Progress Note: Vital Signs - 24 hr Family appealed discharge Pt unable to get NH placement due to insurance issues Calm now But he wont allow labs or further testing Pt ambulates to the bathroom to urinate Vital Signs - 24 hr 07/05/16 07/05/16 07/06/16 21:00 21:40 09:00 Temperature 97.9 F Pulse Rate 100 H Respiratory 16 20 Rate Blood Pressure 158/90 O2 Sat by Pulse 97 97 Oximetry (%) Laboratory Results - last 24 hr 07/05/16 19:38 POC Glucometer 171 Current Medications Generic Name Dose Route Start Last Admin Trade Name Freq PRN Reason Stop Dose Admin Acetaminophen 650 mg 06/28/16 01:00 Tylenol - PO Q6H PRN FEVER OR PAIN Atorvastatin Calcium 20 mg 06/28/16 22:00 07/05/16 22:54 Lipitor - PO 20 mg HS [facility] Administration Donepezil HCl 10 mg 06/28/16 10:00 07/06/16 09:47 Aricept - PO Not Given DAILY [facility] Glipizide 10 mg 06/28/16 07:00 07/06/16 06:18 Glucotrol - PO Not Given BIDAC [facility] Haloperidol 0.5 mg 07/04/16 11:06 07/04/16 11:57 Haldol Injection (Fast Acting) - IM 0.5 mg Q4H PRN Administration AGITATION Heparin Sodium (Porcine) 5,000 unit 06/28/16 22:00 07/06/16 09:48 Heparin - SQ Not Given BID [facility] Insulin Aspart 1 vial 06/28/16 11:00 07/06/16 11:27 Novolog Vial Sliding Scale - SQ Not Given TIDAC [facility] Protocol Lorazepam 1 mg 07/04/16 09:10 Ativan Injection - IM Q8H PRN ANXIETY Pantoprazole Sodium 40 mg 06/28/16 10:00 07/06/16 09:48 Protonix - PO Not Given DAILY [facility] Tamsulosin HCl 0.4 mg 07/01/16 08:30 07/06/16 08:57 Flomax - PO Not Given DAILY@0830 [facility] Thiamine HCl 200 mg 07/04/16 14:00 07/06/16 13:35 Vitamin B1 Injection - IM 07/07/16 06:01 Not Given TID [facility] S1 S2 RRR Lungs clear Abd- soft, NT, ND, BS+ No edema PLAN -- continue with meds -- pt not allowing labs to be drawn -- spoke with pt's son Alcon yesterday, discussed with him about pt's advanced dementia and the need for supportive care. I explained to him about his insurance not having SNF benefits. -- stable for discharge from my standpoint Problem List - Problems (1) Altered mental status Code(s): R41.82 - ALTERED MENTAL STATUS, UNSPECIFIED Qualifiers: Altered mental status type: unspecified Qualified Code(s): R41.82 - Altered mental status, unspecified (2) Renal failure Code(s): N19 - UNSPECIFIED KIDNEY FAILURE (3) Dementia Code(s): F03.90 - UNSPECIFIED DEMENTIA WITHOUT BEHAVIORAL DISTURBANCE (4) HTN (hypertension) Code(s): I10 - ESSENTIAL (PRIMARY) HYPERTENSION
[2016-07-06] MEDS: ATORVASTATIN CA 20 MG TABLET (FP) PO SCH (23:24)
[2016-07-07] MEDS: THIAMINE HCL 200 MG/2 ML VIAL IM SCH (06:08)
[2016-07-07] MEDS: glipiZIDE 10 MG TABLET (FP) PO SCH (06:08)
[2016-07-07] MEDS: INSULIN SLIDING SCALE (NOVOLOG) 1 VIAL SQ SCH (06:08)
[2016-07-07] MEDS: DONEPEZIL HCL 10 MG TABLET (FP) PO SCH (09:39)
[2016-07-07] MEDS: HEPARIN NA (PORCINE) 5,000 UNITS/ML 1ML VIAL SQ SCH (09:41)
[2016-07-07] MEDS: PANTOPRAZOLE 40 MG TABLET (FP) PO SCH (09:41)
[2016-07-07] MEDS: TAMSULOSIN HCL 0.4 MG CAP.ER.24H (FP) PO SCH (09:41)
--- NOTE | 2016-07-07 10:14 | PN ---
Progress Note (short form) - Note Progress Note: SUBJECTIVE: Patient seen and examined. Chart reviewed. Comfortable. Confused. No distress. OBJECTIVE: Vital Signs - 8 hr 07/07/16 06:00 Pulse Rate 94 H Blood Pressure 115/70 Intake & Output 07/06/16 07/07/16 07/07/16 23:59 07:59 15:59 Intake Total 0 220 Balance 0 220 Intake: Oral 0 220 Other: Voiding Method Toilet Toilet # Unmeasured Voids Void 1 Active Medications Acetaminophen (Tylenol -) 650 mg PO Q6H PRN PRN Reason: FEVER OR PAIN Last Admin: 07/06/16 19:41 Dose: 650 mg Atorvastatin Calcium (Lipitor -) 20 mg PO HS [facility] Last Admin: 07/06/16 23:24 Dose: 20 mg Donepezil HCl (Aricept -) 10 mg PO DAILY [facility] Last Admin: 07/07/16 09:39 Dose: 10 mg Glipizide (Glucotrol -) 10 mg PO BIDAC [facility] Last Admin: 07/07/16 06:08 Dose: Not Given Haloperidol (Haldol Injection (Fast Acting) -) 0.5 mg IM Q4H PRN PRN Reason: AGITATION Last Admin: 07/04/16 11:57 Dose: 0.5 mg Heparin Sodium (Porcine) (Heparin -) 5,000 unit SQ BID [facility] Last Admin: 07/07/16 09:41 Dose: Not Given Insulin Aspart (Novolog Vial Sliding Scale -) 1 vial SQ TIDAC [facility] PRN Reason: Protocol Last Admin: 07/07/16 06:08 Dose: Not Given Lorazepam (Ativan Injection -) 1 mg IM Q8H PRN PRN Reason: ANXIETY Pantoprazole Sodium (Protonix -) 40 mg PO DAILY [facility] Last Admin: 07/07/16 09:41 Dose: Not Given Tamsulosin HCl (Flomax -) 0.4 mg PO DAILY@0830 [facility] Last Admin: 07/07/16 09:41 Dose: Not Given CBC, BMP 06/27/16 22:59 06/29/16 13:30 PHYSICAL EXAMINATION: Constitutional: Awake. Confused. Cardiovascular: S1 S2 RRR Lungs clear Abd- soft, NT, ND, BS+ No edema Problem List - Problems (1) Altered mental status Code(s): R41.82 - ALTERED MENTAL STATUS, UNSPECIFIED Qualifiers: Altered mental status type: unspecified Qualified Code(s): R41.82 - Altered mental status, unspecified (2) Renal failure Code(s): N19 - UNSPECIFIED KIDNEY FAILURE (3) Dementia Code(s): F03.90 - UNSPECIFIED DEMENTIA WITHOUT BEHAVIORAL DISTURBANCE (4) HTN (hypertension) Code(s): I10 - ESSENTIAL (PRIMARY) HYPERTENSION ASSESSMENT & PLAN: - Advanced dementia. - Toxic metabolic encephalopathy- resolved- likely due to urinary retention. - Medically stabled for discharge. - Discussed with Gameplay Programmer. - Anticipate discharge today to home- Son will take him home. - VNS. Documentation prepared by Steffanie Jules, acting as a medical office clerk for Luis Balderas MD.
[2016-07-07 15:10] VITALS: BP 137/98; PULSE 114; TEMP 98.2
== END 2016-07-07 15:58 | disposition home or self-care (01) | DRG 682 ==
LOC: JER 22:26 → JERBED 06-28 00:45 → UNDOADMIN 06-28 01:04 → JERBED 06-28 01:04 → J6S 06-28 14:23
PROVIDERS: ADMIT Internal Medicine; ATTEND Internal Medicine
DX: N17.9 Acute kidney failure, unspecified (principal); G93.41 Metabolic encephalopathy; R41.82 Altered mental status, unspecified; E11.9 Type 2 diabetes mellitus without complications; I10 Essential (primary) hypertension; F03.90 Unspecified dementia, unspecified severity, without behavioral disturbance, psychotic disturbance, mood disturbance, and anxiety; E86.0 Dehydration; K21.9 Gastro-esophageal reflux disease without esophagitis; R33.8 Other retention of urine
CPT/HCPCS: 36415; 70450-TC; 71010-TC; 80048; 80053; 80307; 81003; 81015; 82550; 82553; 82803; 84484; 85025; 85610; 86850; 86900; 86901; 87086; 90670; 93005; 93010; 97116-GP; 97161-GP; 99284-25; J1644

== ENCOUNTER 2016-07-17 20:18 | Inpatient (IN) | payer MEDICARE, OTHER ==
[2016-07-17 20:56] VITALS: BMI 18.6
--- NOTE | 2016-07-17 21:10 | PDOC ---
History of Present Illness <Ashley Grant - Last Filed: 07/17/16 23:43> <Doris Weathers - Last Filed: 07/18/16 18:30> - General Stated Complaint: Altered Mental Status Time Seen by Provider: 07/17/16 20:53 - History of Present Illness Initial Comments: 07/17/16 23:35 Patient is an 80 year old male with significant medical hx of hypertension, hyperlipidemia diabetes, renal failure, and dementia, who is presenting to the ED via EMS after being found stiff and unresponsive at home at 5 PM by family member. EMS reports the patient had pinpoint pupils upon arrival. After the patient received Narcan, he became confused and combative about ten minutes later. The patient had to be restrained; Upon arrival to the ED the patient told ER physician that he was going to . He also received a finger stick that revealed blood sugar of 140. Patient cannot partake in review of systems. Denies hx of IVDA use, opiate abuse, or any other recreational drug use. The patient was recently discharged ten days ago for admission for renal failure. (Ashley Grant) Past History <Ashley Grant - Last Filed: 07/17/16 23:43> - Past Medical History Dementia: Yes Diabetes: Yes HTN: Yes - Psycho/Social/Smoking Cessation Hx Suicidal Ideation: No Smoking History: Unknown if ever smoked Have you smoked in the past 12 months: No Hx Alcohol Use: No Drug/Substance Use Hx: No <Doris Weathers - Last Filed: 07/18/16 18:30> - Past Medical History Allergies/Adverse Reactions: Allergies Allergy/AdvReac Type Severity Reaction Status Date / Time No Known Allergies Allergy Verified 07/17/16 21:13 Home Medications: Ambulatory Orders Glipizide 10 mg PO BID 06/27/16 Donepezil HCl [Aricept -] 10 mg PO DAILY 06/28/16 Gabapentin 100 mg PO TID 06/28/16 Losartan Potassium 25 mg PO DAILY 06/28/16 Acetaminophen [Tylenol .Regular Strength -] 650 mg PO Q6H PRN #0 tablet Atorvastatin Ca [Lipitor] 20 mg PO HS tablet 06/30/16 Tamsulosin HCl [Flomax -] 0.4 mg PO DAILY@0830 cap.er.24h 06/30/16 Metformin HCl 500 mg PO BID #0 07/04/16 Pantoprazole Sodium [Protonix] 40 mg PO DAILY #0 07/04/16 Thiamine HCl [B-1] 100 mg PO DAILY #60 tablet 07/04/16 Review of Systems <Ashley Grant - Last Filed: 07/17/16 23:43> <JasielDoris Meche - Last Filed: 07/18/16 18:30> - Review of Systems Comments:: 07/17/16 23:35 Patient is unable to participate in ROS. (RudyConradoAshley) *Physical Exam <Ashley Grant - Last Filed: 07/17/16 23:43> <Doris Weathers - Last Filed: 07/18/16 18:30> - Vital Signs Last Vital Signs Temp Pulse Resp BP Pulse Ox 97.8 F 96 H 20 139/78 99 07/18/16 15:52 07/18/16 15:52 07/18/16 15:52 07/18/16 10:00 07/18/16 10:00 - Physical Exam Comments: 07/17/16 23:35 GENERAL: Well developed, well nourished. Awake and alert. Combative. HEENT: Normocephalic, atraumatic. PERRLA, EOMI. No conjunctival pallor. Sclera are non- icteric. Dry mucous membranes. Oropharynx is clear. NECK: Supple. Full ROM. No JVD. Carotid pulses 2+ and symmetric, without bruits. No thyromegaly. No lymphadenopathy. CARDIOVASCULAR: Regular rate and rhythm. No murmurs, rubs, or gallops. Distal pulses are 2+ and symmetric. PULMONARY: No evidence of respiratory distress. Lungs clear to auscultation bilaterally. No wheezing, rales or rhonchi. ABDOMINAL: Soft. Non-tender. Non-distended. No rebound or guarding. No organomegaly. Normoactive bowel sounds. MUSCULOSKELETAL: Normal range of motion at all joints. No bony deformities or tenderness. No CVA tenderness. EXTREMITIES: No cyanosis. No clubbing. No edema. No calf tenderness. SKIN: Warm and dry. Normal capillary refill. No rashes. No jaundice. NEUROLOGICAL: Alert, awake, dementia. Cranial nerves 2-12 intact. Normal speech. (Rae Granta) Heart Score/ECG Review <Ashley Grant - Last Filed: 07/17/16 23:43> <Doris Weathers - Last Filed: 07/18/16 18:30> #1 07/17/16 23:43 Poor data quality, interpretation may be adversely affected Normal sinus rhythm at 99 bpm Left axis deviation Abnormal ECG (RudyAshley) ED Treatment Course - LABORATORY CBC & Chemistry Diagram: 07/17/16 21:40 07/17/16 21:40 <Ashley Grant - Last Filed: 07/17/16 23:43> - LABORATORY CBC & Chemistry Diagram: 07/18/16 09:15 07/18/16 09:15 <JasielDoris Mcgregor - Last Filed: 07/18/16 18:30> - ADDITIONAL ORDERS Additional order review: 07/17/16 21:40 RBC 5.60 MCV 80.8 MCHC 32.3 RDW 15.2 MPV 9.3 Neutrophils % 61.8 D Lymphocytes % 28.1 D Monocytes % 8.4 Eosinophils % 1.2 Basophils % 0.5 - RADIOLOGY Radiology Studies Ordered: Category Date Time Status HEAD CT WITHOUT CONTRAST [CT] Stat CT Scan 07/17/16 21:27 Completed CHEST X-RAY PORTABLE* [RAD] Stat Radiology 07/17/16 21:27 Completed Radiograph Interpretation: 07/17/16 23:[address] Impression: The intracranial structures demonstrate no definite interval change in comparison to a prior exam of 06/27/2016. Right temporal cortical/subcortical encephalomalacia is noted. The partially imaged left maxillary sinus demonstrates increased opacification which may represent acute/subacute sinusitis superimposed upon pre-existing chronic sinusitis. Inspissated secretions due to chronic inflammation are again seen within the inferior aspect of the left maxillary sinus. Reported By: Daniel Arriaga MD (Ashley Grant) - Medications Given in the ED: ED Medications Discontinued Medications Generic Name Dose Route Start Last Admin Trade Name Freq PRN Reason Stop Dose Admin Diphenhydramine HCl 25 mg 07/18/16 00:50 07/18/16 01:27 Benadryl Injection - IVPUSH 07/18/16 00:51 25 mg ONCE ONE Administration Lorazepam 2 mg 07/18/16 00:51 07/18/16 01:28 Ativan Injection - IVPUSH 07/18/16 00:52 2 mg ONCE ONE Administration Medical Decision Making <Ashley Grant - Last Filed: 07/17/16 23:43> <Doris Weathers - Last Filed: 07/18/16 18:30> - Medical Decision Making 07/18/16 00:30 Praful Caceres (son)cell [phone] family states that the pt was found unresponsive and ambulance was called. The pt received narcan but didnt have imported mental status until 10 minutes later then he became very combative and then he received haldol IM 07/18/16 18:23 ct head no acute intracranial pathology cxr no infiltrates negative troponin chronic mild renal insuff with creatinine of 1.6 ekg no acute evidence of ischemia case discussed w Dr Nandini Melchor and pt admitted 07/18/16 18:30 (Doris Weathers) *DC/Admit/Observation/Transfer <Ashley Grant - Last Filed: 07/17/16 23:43> <Doris Weathers - Last Filed: 07/18/16 18:30> Diagnosis at time of Disposition: Dementia Qualifiers: Dementia type: unspecified type Dementia behavioral disturbance: without behavioral disturbance Qualified Code(s): F03.90 - Unspecified dementia without behavioral disturbance Altered mental status Qualifiers: Altered mental status type: unspecified Qualified Code(s): R41.82 - Altered mental status, unspecified Syncope Qualifiers: Syncope type: unspecified Qualified Code(s): R55 - Syncope and collapse - Referrals - Attestations Scribe Attestion: 07/17/16 23:36 Documentation prepared by Ashley Grant, acting as medical sociologist for Doris Weathers MD. (Ashley Grant)
[2016-07-17 21:58] LABS: BASOPHIL 0.5 % (0-2.0); EOSINOPHIL 1.2 % (0-4.5); MCH 26.1 pg (25.7-33.7); MCHC 32.3 g/dl (32.0-35.9); MEAN CELL VOLUME 80.8 fl (80-96); MEAN PLT VOLUME 9.3 fl (7.5-11.1); NEUTROPHILS 61.8 % (42.8-82.8); PLATELET COUNT 204 K/MM3 (134-434); RDW 15.2 % (11.9-15.9); WHITE BLOOD COUNT 6.8 K/mm3 (4.0-10.0)
[2016-07-17 22:12] LABS: INR 1.04 (0.82-1.09); PROTHROMBIN TIME (PATIENT) 11.4 SEC (9.98-11.88)
[2016-07-17 22:14] LABS: ACTIVATED PTT 33.5 SECONDS (26.9-34.4)
[2016-07-17 22:23] LABS: TROPONIN I < 0.02 ng/ml (0.00-0.05)
[2016-07-17 22:31] LABS: ALBUMIN 3.5 g/dl (3.4-5.0); BILIRUBIN,TOTAL 0.7 mg/dL (0.2-1.0); CALCIUM 10.2 mg/dL (8.5-10.1); CREATININE 1.6 mg/dL (0.7-1.3); TOT PROT 7.2 g/dl (6.4-8.2)
[2016-07-17] MEDS: SODIUM CHLORIDE 1,000 ML IV SCH (22:32)
--- NOTE | 2016-07-18 00:39 | PDOC ---
History of Present Illness - General Chief Complaint: Psychiatric Stated Complaint: Altered Mental Status Time Seen by Provider: 07/17/16 20:53 Past History - Past Medical History Allergies/Adverse Reactions: Allergies Allergy/AdvReac Type Severity Reaction Status Date / Time No Known Allergies Allergy Verified 07/17/16 21:13 Home Medications: Ambulatory Orders Glipizide 10 mg PO BID 06/27/16 Donepezil HCl [Aricept -] 10 mg PO DAILY 06/28/16 Gabapentin 100 mg PO TID 06/28/16 Losartan Potassium 25 mg PO DAILY 06/28/16 Simvastatin 40 mg PO HS 06/28/16 Acetaminophen [Tylenol .Regular Strength -] 650 mg PO Q6H PRN #0 tablet Atorvastatin Ca [Lipitor] 20 mg PO HS tablet 06/30/16 Tamsulosin HCl [Flomax -] 0.4 mg PO DAILY@0830 cap.er.24h 06/30/16 Metformin HCl 500 mg PO BID #0 07/04/16 Pantoprazole Sodium [Protonix] 40 mg PO DAILY #0 07/04/16 Thiamine HCl [B-1] 100 mg PO DAILY #60 tablet 07/04/16 Dementia: Yes Diabetes: Yes HTN: Yes - Psycho/Social/Smoking Cessation Hx Suicidal Ideation: No Smoking History: Unknown if ever smoked Have you smoked in the past 12 months: No Hx Alcohol Use: No Drug/Substance Use Hx: No *Physical Exam - Vital Signs Last Vital Signs Temp Pulse Resp BP Pulse Ox 98.3 F 94 H 20 116/77 96 07/17/16 20:52 07/18/16 00:30 07/18/16 00:30 07/18/16 00:30 07/18/16 00:30 ED Treatment Course - LABORATORY CBC & Chemistry Diagram: 07/17/16 21:40 07/17/16 21:40 - ADDITIONAL ORDERS Additional order review: Laboratory Results 07/17/16 07/17/16 07/17/16 21:40 21:40 21:40 WBC 6.8 D RBC 5.60 Hgb 14.6 Hct 45.2 MCV 80.8 MCHC 32.3 RDW 15.2 Plt Count 204 MPV 9.3 Neutrophils % 61.8 D Lymphocytes % 28.1 D Monocytes % 8.4 Eosinophils % 1.2 Basophils % 0.5 INR PTT (Actin FS) Sodium 139 Potassium 4.2 Chloride 101 Carbon Dioxide 28 D Anion Gap 10 BUN 20 H D Creatinine 1.6 H D Creat Clearance w eGFR 41.69 Random Glucose 194 H D Calcium 10.2 H Total Bilirubin 0.7 AST 23 D ALT 39 D Alkaline Phosphatase 92 D Creatine Kinase Creatine Kinase Index CK-MB (CK-2) CK-MB (CK-2) Rel Index Cancelled Troponin I Total Protein 7.2 Albumin 3.5 07/17/16 07/17/16 21:40 21:40 WBC RBC Hgb Hct MCV MCHC RDW Plt Count MPV Neutrophils % Lymphocytes % Monocytes % Eosinophils % Basophils % INR 1.04 PTT (Actin FS) 33.5 Sodium Potassium Chloride Carbon Dioxide Anion Gap BUN Creatinine Creat Clearance w eGFR Random Glucose Calcium Total Bilirubin AST ALT Alkaline Phosphatase Creatine Kinase 332 H D Creatine Kinase Index 1.3 CK-MB (CK-2) 4.424 H CK-MB (CK-2) Rel Index Troponin I < 0.02 Total Protein Albumin 07/17/16 21:40 RBC 5.60 MCV 80.8 MCHC 32.3 RDW 15.2 MPV 9.3 Neutrophils % 61.8 D Lymphocytes % 28.1 D Monocytes % 8.4 Eosinophils % 1.2 Basophils % 0.5 - RADIOLOGY Radiology Studies Ordered: Category Date Time Status HEAD CT WITHOUT CONTRAST [CT] Stat CT Scan 07/17/16 21:27 Completed CHEST X-RAY PORTABLE* [RAD] Stat Radiology 07/17/16 21:27 Taken *DC/Admit/Observation/Transfer Diagnosis at time of Disposition: Dementia Qualifiers: Dementia type: unspecified type Dementia behavioral disturbance: without behavioral disturbance Qualified Code(s): F03.90 - Unspecified dementia without behavioral disturbance Altered mental status Qualifiers: Altered mental status type: unspecified Qualified Code(s): R41.82 - Altered mental status, unspecified Syncope Qualifiers: Syncope type: unspecified Qualified Code(s): R55 - Syncope and collapse - Discharge Dispostion Admit: Yes - Referrals Referrals: Luis Balderas MD [Primary Care Provider] - - Patient Instructions - Post Discharge Activity
[2016-07-18] MEDS ORDERED: LORAZEPAM CARPU-JECT 2 MG/ML DISP.SYRIN IVPUSH ONE (00:51)
[2016-07-18] MEDS ORDERED: LORAZEPAM CARPU-JECT 2 MG/ML DISP.SYRIN ONE (00:51)
[2016-07-18] MEDS ORDERED: ACETAMINOPHEN 325 MG TABLET (FP) PO PRN (01:32)
[2016-07-18 02:11] LABS: URINE APPEARANCE SLCLOUDY; URINE BLOOD NEGATIVE (NEGATIVE); URINE COLOR AMBER; URINE GLUCOSE (UA) NEGATIVE (NEGATIVE); URINE KETONE TRACE (NEGATIVE); URINE NITRITE NEGATIVE (NEGATIVE); URINE UROBILINOGEN 2.0 E.U/dl E.U./dl (0.2-1.0)
[2016-07-18 02:46] LABS: URINE LEUK ESTERASE 2+ (NEGATIVE); URINE PROTEIN 1+ (NEGATIVE)
[2016-07-18 03:05] LABS: URINE HYALINE CAST 45 /lpf; URINE MUCUS FEW; URINE RBC 2 /hpf (0-3); URINE WBC 8 /hpf (3-5)
[2016-07-18] MEDS: GABAPENTIN 100 MG CAPSULE (FP) PO SCH ×3 (06:05→22:03)
[2016-07-18] MEDS: SODIUM CHLORIDE 1,000 ML IV SCH ×2 (06:05→22:03)
[2016-07-18] MEDS: glipiZIDE 10 MG TABLET (FP) PO SCH ×2 (06:05→16:21)
[2016-07-18] MEDS: THIAMINE HCL 100 MG TABLET (FP) PO SCH ×2 (09:31→09:40)
[2016-07-18] MEDS: PANTOPRAZOLE 40 MG TABLET (FP) PO SCH ×2 (09:31→09:40)
[2016-07-18 09:32] LABS: BASOPHIL 0.5 % (0-2.0); EOSINOPHIL 1.4 % (0-4.5); MCH 25.7 pg (25.7-33.7); MCHC 31.6 g/dl (32.0-35.9); MEAN CELL VOLUME 81.6 fl (80-96); MEAN PLT VOLUME 8.9 fl (7.5-11.1); NEUTROPHILS 52.9 % (42.8-82.8); PLATELET COUNT 157 K/MM3 (134-434); WHITE BLOOD COUNT 6.7 K/mm3 (4.0-10.0)
[2016-07-18] MEDS: DONEPEZIL HCL 10 MG TABLET (FP) PO SCH ×2 (09:32→09:40)
[2016-07-18] MEDS: LOSARTAN POTASSIUM 25 MG TABLET PO SCH ×2 (09:32→09:40)
[2016-07-18] MEDS: TAMSULOSIN HCL 0.4 MG CAP.ER.24H (FP) PO SCH ×2 (09:32→09:40)
[2016-07-18 10:01] LABS: CALCIUM 9.8 mg/dL (8.5-10.1); CREATININE 1.6 mg/dL (0.7-1.3)
--- NOTE | 2016-07-18 12:32 | HP ---
Admitting History and Physical - Primary Care Physician PCP: Luis Balderas - Admission Chief Complaint: AMS History of Present Illness: ER HISTORY History of Present Illness Initial Comments: 07/17/16 23:35 Patient is an 80 year old male with significant medical hx of hypertension, hyperlipidemia diabetes, renal failure, and dementia, who is presenting to the ED via EMS after being found stiff and unresponsive at home at 5 PM by family member. EMS reports the patient had pinpoint pupils upon arrival. After the patient received Narcan, he became confused and combative about ten minutes later. The patient had to be restrained; Upon arrival to the ED the patient told ER physician that he was going to . He also received a finger stick that revealed blood sugar of 140. Patient cannot partake in review of systems. Denies hx of IVDA use, opiate abuse, or any other recreational drug use. Pt seen by me in Tele Baseline confused, but he looks more drowsy today no complaints History Source: Medical Record Limitations to Obtaining History: Dementia - Past Medical History [employer] GAS: Yes: Alzheimer's Cardiovascular: Yes: HTN, Hyperlipdemia - Smoking History Smoking history: Unknown if ever smoked Have you smoked in the past 12 months: No - Alcohol/Substance Use Hx Alcohol Use: No (Unknown) Home Medications - Allergies Allergies/Adverse Reactions: Allergies Allergy/AdvReac Type Severity Reaction Status Date / Time No Known Allergies Allergy Verified 07/17/16 21:13 - Home Medications Home Medications: Ambulatory Orders Glipizide 10 mg PO BID 06/27/16 Donepezil HCl [Aricept -] 10 mg PO DAILY 06/28/16 Gabapentin 100 mg PO TID 06/28/16 Losartan Potassium 25 mg PO DAILY 06/28/16 Acetaminophen [Tylenol .Regular Strength -] 650 mg PO Q6H PRN #0 tablet Atorvastatin Ca [Lipitor] 20 mg PO HS tablet 06/30/16 Tamsulosin HCl [Flomax -] 0.4 mg PO DAILY@0830 cap.er.24h 06/30/16 Metformin HCl 500 mg PO BID #0 07/04/16 Pantoprazole Sodium [Protonix] 40 mg PO DAILY #0 07/04/16 Thiamine HCl [B-1] 100 mg PO DAILY #60 tablet 07/04/16 Review of Systems Unable to obtain ROS, reason: dementia Physical Examination Vital Signs: Vital Signs Temperature 98.3 F 07/18/16 04:53 Pulse Rate 98 H 07/18/16 04:53 Respiratory Rate 16 07/18/16 04:57 Blood Pressure 134/81 07/18/16 04:53 O2 Sat by Pulse Oximetry (%) 98 07/18/16 04:57 Constitutional: Yes: No Distress Cardiovascular: Yes: Regular Rate and Rhythm Respiratory: Yes: Diminished Gastrointestinal: Yes: Normal Bowel Sounds, Soft. No: Distention, Tenderness Edema: No Neurological: Yes: Other (drowsy) Labs: CBC, BMP 07/18/16 09:15 07/18/16 09:15 Imaging - Results Chest X-ray: Image Reviewed Cat Scan: Report Reviewed (CT head- negative) EKG: Image Reviewed (NSR) Problem List - Problems (1) Altered mental status Code(s): R41.82 - ALTERED MENTAL STATUS, UNSPECIFIED Qualifiers: Altered mental status type: unspecified Qualified Code(s): R41.82 - Altered mental status, unspecified (2) Dementia Code(s): F03.90 - UNSPECIFIED DEMENTIA WITHOUT BEHAVIORAL DISTURBANCE Qualifiers: Dementia type: unspecified type Dementia behavioral disturbance: without behavioral disturbance Qualified Code(s): F03.90 - Unspecified dementia without behavioral disturbance (3) HTN (hypertension) Code(s): I10 - ESSENTIAL (PRIMARY) HYPERTENSION (4) UTI (urinary tract infection) Code(s): N39.0 - URINARY TRACT INFECTION, SITE NOT SPECIFIED Assessment/Plan PLAN treat UTI check carotid doppler check labs kulwinder restraints to prevent injury to self continue with meds tele monitoring Cardiology eval
--- NOTE | 2016-07-18 12:36 | EKG ---
Test Reason : Blood Pressure : / mmHG Vent. Rate : 099 BPM Atrial Rate : 099 BPM P-R Int : 172 ms QRS Dur : 086 ms QT Int : 354 ms P-R-T Axes : 069 -81 035 degrees QTc Int : 454 ms POOR DATA QUALITY, INTERPRETATION MAY BE ADVERSELY AFFECTED NORMAL SINUS RHYTHM LEFT AXIS DEVIATION ABNORMAL ECG WHEN COMPARED WITH ECG OF 27-JUN-2016 23:00, NONSPECIFIC T WAVE ABNORMALITY NO LONGER EVIDENT IN LATERAL LEADS Confirmed by SASCHA BURNHAM MD ([id number]) on 07/18/2016 12:36:19 PM Referred By: Confirmed By:SASCHA BURNHAM MD
[2016-07-18 14:03] LABS: TROPONIN I 0.02 ng/ml (0.00-0.05)
[2016-07-18] MEDS: INSULIN SLIDING SCALE (NOVOLOG) 1 VIAL SQ SCH (16:21)
[2016-07-18] MEDS: LORAZEPAM CARPU-JECT 2 MG/ML DISP.SYRIN IVPUSH PRN ×2 (16:26→23:30)
[2016-07-18] MEDS: CEFTRIAXONE 50 ML IVPB SCH (16:26)
[2016-07-18] MEDS ORDERED: SODIUM CHLORIDE 1,000 ML IV SCH (18:00)
[2016-07-18] MEDS: ATORVASTATIN CA 20 MG TABLET (FP) PO SCH (22:02)
[2016-07-18] MEDS: HEPARIN NA (PORCINE) 5,000 UNITS/ML 1ML VIAL SQ SCH (22:02)
[2016-07-19] MEDS: glipiZIDE 10 MG TABLET (FP) PO SCH (06:00)
[2016-07-19] MEDS: INSULIN SLIDING SCALE (NOVOLOG) 1 VIAL SQ SCH ×3 (06:00→16:15)
[2016-07-19] MEDS: GABAPENTIN 100 MG CAPSULE (FP) PO SCH ×3 (06:08→13:53)
[2016-07-19] MEDS ORDERED: metFORMIN HCL 500 MG TABLET (FP) PO SCH (07:00)
[2016-07-19] MEDS: LORAZEPAM CARPU-JECT 2 MG/ML DISP.SYRIN IVPUSH PRN ×2 (07:08→16:17)
--- NOTE | 2016-07-19 10:26 | CON.CARD ---
Cardiology Consult (text) - Consultation Consultation Note: cc: ams, possible syncope hpi: hx from charts as pt with dementia, only mumbling. 80 m hx dementia, htn , hld, dm, here with ams, possible syncope. Pt found unresponsive at home, ems called and found pinpoint pupils so gave narcan and shortly after pt awoke, combative. Brought to ER and now being treated for possible uti. Appears comfortable in bed. pmh: per hpi psh: unknown social: no tob fam: unknown ros: unable to obtain 2/2 dementia, ams meds: Home Medications Medication Instructions Recorded Glipizide 10 mg PO BID 06/27/16 Donepezil HCl [Aricept -] 10 mg PO DAILY 06/28/16 Gabapentin 100 mg PO TID 06/28/16 Losartan Potassium 25 mg PO DAILY 06/28/16 Acetaminophen [Tylenol .Regular 650 mg PO Q6H PRN #0 tablet 06/30/16 Strength -] Atorvastatin Ca [Lipitor] 20 mg PO HS tablet 06/30/16 Tamsulosin HCl [Flomax -] 0.4 mg PO DAILY@0830 cap.er.24h 06/30/16 Metformin HCl 500 mg PO BID #0 07/04/16 Pantoprazole Sodium [Protonix] 40 mg PO DAILY #0 07/04/16 Thiamine HCl [B-1] 100 mg PO DAILY #60 tablet 07/04/16 pe: Vital Signs Period Temp Pulse Resp BP Sys/Farias Pulse Ox Last 24 Hr 97.3 F-98.8 F 83-98 18-20 143-181/60-99 98 nad no jvd rrr s1s2 no mrg cta bl , poor effort no le e/c/c abd nd pos bs pos dp pt no carotid bruits no jaundice diaphoresis awake, mumbling, not communicative Laboratory Last Values WBC 6.7 K/mm3 (4.0-10.0) 07/18/16 09:15 RBC 5.58 M/mm3 (4.00-5.60) 07/18/16 09:15 Hgb 14.4 GM/dL (11.7-16.9) 07/18/16 09:15 Hct 45.6 % (35.4-49) 07/18/16 09:15 MCV 81.6 fl (80-96) 07/18/16 09:15 MCHC 31.6 g/dl (32.0-35.9) L 07/18/16 09:15 RDW 15.0 % (11.9-15.9) 07/18/16 09:15 Plt Count 157 K/MM3 (134-434) D 07/18/16 09:15 MPV 8.9 fl (7.5-11.1) 07/18/16 09:15 Neutrophils % 52.9 % (42.8-82.8) 07/18/16 09:15 Lymphocytes % 36.5 % (8-40) D 07/18/16 09:15 Monocytes % 8.7 % (3.8-10.2) 07/18/16 09:15 Eosinophils % 1.4 % (0-4.5) 07/18/16 09:15 Basophils % 0.5 % (0-2.0) 07/18/16 09:15 INR 1.04 (0.82-1.09) 07/17/16 21:40 PTT (Actin FS) 33.5 SECONDS (26.9-34.4) 07/17/16 21:40 Sodium 142 mmol/L (136-145) 07/18/16 09:15 Potassium 4.5 mmol/L (3.5-5.1) 07/18/16 09:15 Chloride 103 mmol/L (98-107) 07/18/16 09:15 Carbon Dioxide 32 mmol/L (21-32) 07/18/16 09:15 Anion Gap 7 (8-16) L 07/18/16 09:15 BUN 22 mg/dL (7-18) H 07/18/16 09:15 Creatinine 1.6 mg/dL (0.7-1.3) H 07/18/16 09:15 Creat Clearance w eGFR 41.69 (>60) 07/17/16 21:40 POC Glucometer 129 UNITS (()) 07/19/16 05:56 Random Glucose 134 mg/dL (74-106) H D 07/18/16 09:15 Calcium 9.8 mg/dL (8.5-10.1) 07/18/16 09:15 Total Bilirubin 0.7 mg/dL (0.2-1.0) 07/17/16 21:40 AST 23 U/L (15-37) D 07/17/16 21:40 ALT 39 U/L (12-78) D 07/17/16 21:40 Alkaline Phosphatase 92 U/L (45-117) D 07/17/16 21:40 Creatine Kinase 513 IU/L (39-308) H D 07/18/16 09:15 Creatine Kinase Index 0.9 % (0.0-5.0) 07/18/16 09:15 CK-MB (CK-2) 4.76 ng/ml (0.5-3.6) H 07/18/16 09:15 CK-MB (CK-2) Rel Index Cancelled 07/17/16 21:40 Troponin I 0.02 ng/ml (0.00-0.05) 07/18/16 09:15 Total Protein 7.2 g/dl (6.4-8.2) 07/17/16 21:40 Albumin 3.5 g/dl (3.4-5.0) 07/17/16 21:40 Urine Color Dariana 07/18/16 01:50 Urine Appearance Slcloudy 07/18/16 01:50 Urine pH 5.0 (5.0-8.0) 07/18/16 01:50 Ur Specific [place] 1.024 (1.001-1.035) 07/18/16 01:50 Urine Protein 1+ (NEGATIVE) H 07/18/16 01:50 Urine Glucose (UA) Negative (NEGATIVE) 07/18/16 01:50 Urine Ketones Trace (NEGATIVE) H 07/18/16 01:50 Urine Blood Negative (NEGATIVE) 07/18/16 01:50 Urine Nitrite Negative (NEGATIVE) 07/18/16 01:50 Urine Bilirubin 2.0 (NEGATIVE) 07/18/16 01:50 Urine Urobilinogen 2.0 e.u/dl E.U./dl (0.2-1.0) 07/18/16 01:50 Ur Leukocyte Esterase 2+ (NEGATIVE) H 07/18/16 01:50 Urine RBC 2 /hpf (0-3) 07/18/16 01:50 Urine WBC 8 /hpf (3-5) 07/18/16 01:50 Ur Epithelial Cells Rare /hpf (FEW) 07/18/16 01:50 Hyaline Casts 45 /lpf 07/18/16 01:50 Urine Mucus Few 07/18/16 01:50 tele: sr cxr: clear lungs head ct: no acute findings ecg 07/17/16: sr, nl intervals, LAD, no ischemic changes a/p: 80 m hx dementia, htn, hld, dm, here with ams, possible syncope. ams, possible syncope: -trop negx2, ecg w/o ischemic changes, no signs acs or chf -monitor on tele, check echo, carotids -possibly related to UTI, getting abx htn: -cont home meds, if bp remains elevated can add norvasc hld: -cont statin selam: -cont ivfs, monitor cr
[2016-07-19] MEDS ORDERED: SODIUM CHLORIDE 1,000 ML IV SCH (11:15)
--- NOTE | 2016-07-19 12:09 | PN ---
Progress Note, Physician Chief Complaint: not eating mumbling not making sense - Current Medication List Current Medications: Active Medications Acetaminophen (Tylenol -) 650 mg PO Q6H PRN PRN Reason: FEVER OR PAIN Atorvastatin Calcium (Lipitor -) 20 mg PO HS [facility] Last Admin: 07/18/16 22:02 Dose: 20 mg Donepezil HCl (Aricept -) 10 mg PO DAILY [facility] Last Admin: 07/18/16 09:40 Dose: Not Given Gabapentin (Neurontin -) 100 mg PO TID [facility] Last Admin: 07/19/16 06:11 Dose: Not Given Glipizide (Glucotrol -) 10 mg PO BIDI [facility] Last Admin: 07/19/16 06:00 Dose: Not Given Heparin Sodium (Porcine) (Heparin -) 5,000 unit SQ BID [facility] Last Admin: 07/18/16 22:02 Dose: 5,000 unit Ceftriaxone Sodium (Rocephin 1gm Ivpb (Pre-Docked)) 50 mls @ 100 mls/hr IVPB DAILY [facility] Last Admin: 07/18/16 16:26 Dose: 100 mls/hr Sodium Chloride (Normal Saline -) 1,000 mls @ 42 mls/hr IV ASDIR [facility] Insulin Aspart (Novolog Vial Sliding Scale -) 1 vial SQ TIDAC [facility] PRN Reason: Protocol Last Admin: 07/19/16 06:00 Dose: Not Given Lorazepam (Ativan Injection -) 1 mg IVPUSH Q6H PRN PRN Reason: ANXIETY Last Admin: 07/19/16 07:08 Dose: 1 mg Losartan Potassium (Cozaar -) 25 mg PO DAILY [facility] Last Admin: 07/18/16 09:40 Dose: Not Given Metformin HCl (Glucophage -) 500 mg PO BIDI [facility] Last Admin: 07/19/16 06:00 Dose: Not Given Pantoprazole Sodium (Protonix -) 40 mg PO DAILY [facility] Last Admin: 07/18/16 09:40 Dose: Not Given Tamsulosin HCl (Flomax -) 0.4 mg PO DAILY@0830 [facility] Last Admin: 07/18/16 09:40 Dose: Not Given Thiamine HCl (Vitamin B1 -) 100 mg PO DAILY [facility] Last Admin: 07/18/16 09:40 Dose: Not Given - Objective Vital Signs: Vital Signs Temperature 97.3 F L 07/19/16 08:44 Pulse Rate 92 H 07/19/16 08:44 Respiratory Rate 20 07/19/16 08:44 Blood Pressure 181/99 07/19/16 08:44 O2 Sat by Pulse Oximetry (%) 98 07/18/16 21:00 Constitutional: Yes: No Distress Cardiovascular: Yes: Regular Rate and Rhythm Respiratory: Yes: CTA Bilaterally Gastrointestinal: Yes: Normal Bowel Sounds, Soft. No: Distention, Tenderness Edema: No Labs: CBC, BMP 07/18/16 09:15 07/18/16 09:15 INR, PTT INR 1.04 (0.82-1.09) 07/17/16 21:40 Problem List - Problems (1) Altered mental status Code(s): R41.82 - ALTERED MENTAL STATUS, UNSPECIFIED Qualifiers: Altered mental status type: unspecified Qualified Code(s): R41.82 - Altered mental status, unspecified (2) Dementia Code(s): F03.90 - UNSPECIFIED DEMENTIA WITHOUT BEHAVIORAL DISTURBANCE Qualifiers: Dementia type: unspecified type Dementia behavioral disturbance: without behavioral disturbance Qualified Code(s): F03.90 - Unspecified dementia without behavioral disturbance (3) HTN (hypertension) Code(s): I10 - ESSENTIAL (PRIMARY) HYPERTENSION (4) UTI (urinary tract infection) Code(s): N39.0 - URINARY TRACT INFECTION, SITE NOT SPECIFIED Assessment/Plan PLAN iv antibiotics Neurology evauation change iv fluids check carotid doppler check labs kulwinder restraints to prevent injury to self continue with meds tele monitoring Cardiology eval appreciated
[2016-07-19] MEDS: CEFTRIAXONE 50 ML IVPB SCH (12:28)
[2016-07-19] MEDS: LOSARTAN POTASSIUM 25 MG TABLET PO SCH (12:33)
[2016-07-19] MEDS: TAMSULOSIN HCL 0.4 MG CAP.ER.24H (FP) PO SCH (12:33)
[2016-07-19] MEDS: DONEPEZIL HCL 10 MG TABLET (FP) PO SCH (12:33)
[2016-07-19] MEDS: THIAMINE HCL 100 MG TABLET (FP) PO SCH (12:34)
[2016-07-19] MEDS: PANTOPRAZOLE 40 MG TABLET (FP) PO SCH (12:34)
[2016-07-19] MEDS: HEPARIN NA (PORCINE) 5,000 UNITS/ML 1ML VIAL SQ SCH ×2 (12:50→21:21)
[2016-07-19] MEDS ORDERED: D5-1/2NS+10 MEQ KCL - 1,000 ML IV SCH (13:00)
--- NOTE | 2016-07-19 18:35 | CONSULT ---
Consult - text type - Consultation Consultation Note: NEUROLOGY CONSULTATION is greatly appreciated: This 80 yo RH man lives with his son. PMH sig for DM, Chol, GERD, HTN and dementia. Maintained on glipizide, atorvastatin, gabapentin (100 TID), metformin, pantoprazole, thiamine, and thiamine. However, apparently, was refusing meds as well as food at home. Recently hospitalized (07/03/16) for increased confusion and agitation. Now readmitted after being found on floor, unresponsive with pinpoint pupils. History is that he woke up s/p narcan and was agitated. CT of head (reviewed): Moderate atrophy with scattered microvascular changes but no acute heme or CVA. TIMOTHY: No head trauma. No bruits. NEURO: Lethargic (just given ativan for carotid dopplers) but easily arousable to name. Sits up in bed [id number], full boo to threat. Gag OK. No facial asymmetry. Moves all fours well and symmetrically. Absent AJ's. Downgoing toes. Withdraws all fours to pinch. IMP: Moderately severe, B/L cerebral dysfunction. Probably Alzheimer's Disease. Cause of LOC uncertain. Syncope vs seizure? SUGGEST: Cardiology consultation read and appreciated. Agree with telemetry. Also check orthostatic BP's. Agree with antibiotics (Rocephin) for presumed UTI. Last time we gave high dose, parenteral, thiamine without obvious efficacy. Continue Donepezil 10 mg PO q AM. Last admission we were forced to use IM Haldol (.5 mg) for agitation. Thank you very much, James Pace MD
[2016-07-20] MEDS: GABAPENTIN 100 MG CAPSULE (FP) PO SCH ×5 (00:52→21:15)
[2016-07-20] MEDS: ATORVASTATIN CA 20 MG TABLET (FP) PO SCH ×2 (00:52→21:15)
[2016-07-20] MEDS: INSULIN SLIDING SCALE (NOVOLOG) 1 VIAL SQ SCH ×3 (06:11→16:38)
[2016-07-20] MEDS: CEFTRIAXONE 50 ML IVPB SCH (09:57)
[2016-07-20] MEDS: HEPARIN NA (PORCINE) 5,000 UNITS/ML 1ML VIAL SQ SCH ×2 (09:58→21:14)
[2016-07-20] MEDS: DONEPEZIL HCL 10 MG TABLET (FP) PO SCH ×2 (09:58→17:54)
[2016-07-20] MEDS: THIAMINE HCL 100 MG TABLET (FP) PO SCH ×2 (09:58→17:53)
[2016-07-20] MEDS: TAMSULOSIN HCL 0.4 MG CAP.ER.24H (FP) PO SCH ×2 (09:58→17:54)
[2016-07-20] MEDS: PANTOPRAZOLE 40 MG TABLET (FP) PO SCH ×2 (09:58→17:54)
[2016-07-20] MEDS: LOSARTAN POTASSIUM 25 MG TABLET PO SCH ×2 (09:58→17:54)
--- NOTE | 2016-07-20 10:11 | PN ---
Progress Note, Physician Chief Complaint: eaten very little mumbling not making sense - Current Medication List Current Medications: Active Medications Acetaminophen (Tylenol -) 650 mg PO Q6H PRN PRN Reason: FEVER OR PAIN Atorvastatin Calcium (Lipitor -) 20 mg PO HS [facility] Last Admin: 07/20/16 00:52 Dose: Not Given Donepezil HCl (Aricept -) 10 mg PO DAILY [facility] Last Admin: 07/20/16 09:58 Dose: Not Given Gabapentin (Neurontin -) 100 mg PO TID [facility] Last Admin: 07/20/16 05:12 Dose: Not Given Heparin Sodium (Porcine) (Heparin -) 5,000 unit SQ BID [facility] Last Admin: 07/20/16 09:58 Dose: 5,000 unit Ceftriaxone Sodium (Rocephin 1gm Ivpb (Pre-Docked)) 50 mls @ 100 mls/hr IVPB DAILY [facility] Last Admin: 07/20/16 09:57 Dose: 100 mls/hr Potassium Chloride/Dextrose/Sod Cl (D5-1/2ns+10 Meq Kcl -) 1,000 mls @ 75 mls/ hr IV ASDIR [facility] Last Admin: 07/19/16 13:58 Dose: 75 mls/hr Insulin Aspart (Novolog Vial Sliding Scale -) 1 vial SQ TIDAC [facility] PRN Reason: Protocol Last Admin: 07/20/16 06:11 Dose: 4 units Lorazepam (Ativan Injection -) 1 mg IVPUSH Q6H PRN PRN Reason: ANXIETY Last Admin: 07/19/16 16:17 Dose: 1 mg Losartan Potassium (Cozaar -) 25 mg PO DAILY [facility] Last Admin: 07/20/16 09:58 Dose: Not Given Pantoprazole Sodium (Protonix -) 40 mg PO DAILY [facility] Last Admin: 07/20/16 09:58 Dose: Not Given Tamsulosin HCl (Flomax -) 0.4 mg PO DAILY@0830 [facility] Last Admin: 07/20/16 09:58 Dose: Not Given Thiamine HCl (Vitamin B1 -) 100 mg PO DAILY [facility] Last Admin: 07/20/16 09:58 Dose: Not Given - Objective Vital Signs: Vital Signs Temperature 98.1 F 07/20/16 05:26 Pulse Rate 93 H 07/20/16 05:26 Respiratory Rate 18 07/20/16 05:26 Blood Pressure 175/102 07/20/16 05:26 O2 Sat by Pulse Oximetry (%) 97 07/20/16 00:45 Constitutional: Yes: No Distress Cardiovascular: Yes: Regular Rate and Rhythm Respiratory: Yes: CTA Bilaterally Gastrointestinal: Yes: Normal Bowel Sounds, Soft. No: Distention, Palpable Mass , Tenderness Edema: No Labs: CBC, BMP 07/18/16 09:15 07/18/16 09:15 INR, PTT INR 1.04 (0.82-1.09) 07/17/16 21:40 Problem List - Problems (1) Altered mental status Code(s): R41.82 - ALTERED MENTAL STATUS, UNSPECIFIED Qualifiers: Altered mental status type: unspecified Qualified Code(s): R41.82 - Altered mental status, unspecified (2) Dementia Code(s): F03.90 - UNSPECIFIED DEMENTIA WITHOUT BEHAVIORAL DISTURBANCE Qualifiers: Dementia type: unspecified type Dementia behavioral disturbance: without behavioral disturbance Qualified Code(s): F03.90 - Unspecified dementia without behavioral disturbance (3) HTN (hypertension) Code(s): I10 - ESSENTIAL (PRIMARY) HYPERTENSION (4) UTI (urinary tract infection) Code(s): N39.0 - URINARY TRACT INFECTION, SITE NOT SPECIFIED Assessment/Plan PLAN iv antibiotics for UTI Neurology evaluation appreciated start Clinimix carotid doppler negative check labs kulwinder restraints to prevent injury to self continue with meds
[2016-07-20] MEDS ORDERED: hydrALAZINE HCL 20 MG/ML VIAL IVPUSH PRN (10:40)
--- NOTE | 2016-07-20 10:53 | PN ---
Progress Note (short form) - Note Progress Note: s: non communicative, lethargic, appears comfortable, not taking po meds per nurse o: Vital Signs Period Temp Pulse Resp BP Sys/Farias Pulse Ox Last 24 Hr 98.0 F-98.6 F 92-103 18-22 136-175/72-102 97 nad no jvd rrr s1s2 no mrg cta bl , poor effort no le e/c/c abd nd pos bs no jaundice diaphoresis lethargic, not communicative Current Medications Generic Name Dose Route Start Last Admin Trade Name Freq PRN Reason Stop Dose Admin Acetaminophen 650 mg 07/18/16 01:32 Tylenol - PO Q6H PRN FEVER OR PAIN Atorvastatin Calcium 20 mg 07/18/16 22:00 07/20/16 00:52 Lipitor - PO Not Given HS KATHRYN Donepezil HCl 10 mg 07/18/16 10:00 07/20/16 09:58 Aricept - PO Not Given DAILY [facility] Gabapentin 100 mg 07/18/16 06:00 07/20/16 05:12 Neurontin - PO Not Given TID [facility]ATHR[facility] Heparin Sodium (Porcine) 5,000 unit 07/18/16 22:00 07/20/16 09:58 Heparin - SQ 5,000 unit BID KATHRYN Administration Hydralazine HCl 10 mg 07/20/16 10:40 Apresoline Injection - IVPUSH Q6H PRN HYPERTENSION Ceftriaxone Sodium 50 mls @ 100 mls/hr 07/18/16 16:00 07/20/16 09:57 Rocephin 1gm Ivpb (Pre-Docked) IVPB 100 mls/hr DAILY [facility]AT[facility] Administration Amino Acids 1,000 mls @ 84 mls/hr 07/20/16 10:30 Clinimix - IV Q12H [facility] Insulin Aspart 1 vial 07/18/16 16:30 07/20/16 06:11 Novolog Vial Sliding Scale - SQ 4 units TIDAC [facility] Administration Protocol Lorazepam 1 mg 07/18/16 01:33 07/19/16 16:17 Ativan Injection - IVPUSH 1 mg Q6H PRN Administration ANXIETY Losartan Potassium 25 mg 07/18/16 10:00 07/20/16 09:58 Cozaar - PO Not Given DAILY [facility] Pantoprazole Sodium 40 mg 07/18/16 10:00 07/20/16 09:58 Protonix - PO Not Given DAILY [facility] Tamsulosin HCl 0.4 mg 07/18/16 08:30 07/20/16 09:58 Flomax - PO Not Given DAILY@0830 [facility] Thiamine HCl 100 mg 07/18/16 10:00 07/20/16 09:58 Vitamin B1 - PO Not Given DAILY [facility] CBC, BMP 07/18/16 09:15 07/18/16 09:15 tele: sr cxr: clear lungs head ct: no acute findings ecg 07/17/16: sr, nl intervals, LAD, no ischemic changes carotid us 07/2016: no sig stenosis echo 07/2016: tds; nl lv/rv, no sig valve path a/p: 80 m hx dementia, htn, hld, dm, here with ams, possible syncope. ams, possible syncope: -trop negx2, ecg w/o ischemic changes, no signs acs or chf -tele benign -echo and carotid us unremarkable -no suggestion of cardiac etiology -possibly related to UTI, getting abx htn: -no taking po meds per nurse, will order prn iv hydralazine for bp control hld: -cont statin when taking po selam: -cont ivfs, monitor cr
[2016-07-20 11:18] LABS: BASOPHIL 0.5 % (0-2.0); EOSINOPHIL 1.7 % (0-4.5); MCH 25.6 pg (25.7-33.7); MCHC 31.7 g/dl (32.0-35.9); MEAN CELL VOLUME 80.8 fl (80-96); MEAN PLT VOLUME 8.8 fl (7.5-11.1); NEUTROPHILS 55.2 % (42.8-82.8); PLATELET COUNT 153 K/MM3 (134-434); RDW 14.9 % (11.9-15.9); WHITE BLOOD COUNT 4.6 K/mm3 (4.0-10.0)
[2016-07-20 11:34] LABS: ANION GAP 9 (8-16); BILIRUBIN,TOTAL 0.5 mg/dL (0.2-1.0); CALCIUM 9.2 mg/dL (8.5-10.1); CO2 26 mmol/L (21-32); CREATININE 0.8 mg/dL (0.7-1.3); GLUCOSE,RANDOM 105 mg/dL (74-106); SGOT/AST 23 U/L (15-37); SGPT/ALT 26 U/L (12-78); TOT PROT 6.3 g/dl (6.4-8.2)
[2016-07-20 11:42] LABS: ALK PHOS 73 U/L (45-117); THYROID STIMULATING HORMONE 2.02 uIU/ml (0.358-3.74)
[2016-07-20] MEDS: AMINO ACIDS 4.25%/D5W 1,000 ML IV SCH (13:38)
--- NOTE | 2016-07-20 14:58 | PN ---
Progress Note (short form) - Note Progress Note: ID Consult dictated + RPR 1:4 Previously + 1:16 minimally reactive FTA (07/18) Received IM Benzathine PCN weekly x 3 (08/18) No further treatment advised Doubt UTI Observe off antibiotics
--- NOTE | 2016-07-20 15:36 | CONS ---
DATE OF CONSULTATION: DATE OF DICTATION: 07/20/2016 The patient is an 80-year-old male evaluated for positive syphilis serology. He was admitted to the hospital on July 18, 2016, after apparently being found unresponsive at home with pinpoint pupils, according to the neurologist's note. He was given Narcan in the emergency room with improvement in his mental status. He was admitted with a diagnosis of syncope and worsening of his dementia. As part of the workup, and RPR was performed and was positive 1:4 with FTA pending. Patient suffers from dementia and cannot give a reliable history. When questioned, he denied any history of syphilis, was unaware of any prior positive serologies or treatment. I contacted the [facility] today and was able to confirm that in July of 2013 the patient had a positive RPR of 1:16 with a minimally reactive FTA. He was retested at the [facility] in August of 2013, at which time his RPR was 1:1 and TPPA was reactive. He received 3 intramuscular injections of benzathine penicillin on a weekly basis. No history of possible re-exposure. His HIV status is not known. PAST MEDICAL HISTORY: Positive for dementia, hypertension, hyperlipidemia, diabetes mellitus, chronic kidney disease. ALLERGIES: No known allergies. MEDICATIONS: Medication at the present time include Flomax, Tylenol, Cozaar, ceftriaxone, heparin, Neurontin, Ativan, Apresoline, Lipitor, Aricept, Protonix. SOCIAL HISTORY: Lives in the community. He is originally from [place], has been living in the [facility] for several years. His tobacco and alcohol history is not documented. REVIEW OF SYSTEMS: Neurologic: Positive for dementia. Cardiac: Negative chest pain or palpitations. Respiratory: Negative cough or sputum production. Gastrointestinal: Negative vomiting or diarrhea. Genitourinary: Negative for urinary tract infection. LABORATORY DATA: White count 4.6, hematocrit 43.4, platelet count 153. BUN 9, creatinine 0.8. Liver enzymes normal. Urinalysis shows 8 white cells. Urine culture negative. PHYSICAL EXAMINATION: General: He is awake; however, he is confused. Vital Signs: His temperature is 96.9, blood pressure 138/68, pulse 82 and regular, respirations 20 per minute. HEENT: Sclerae are anicteric. Cardiovascular: Heart sounds S1, S2. Lungs: Clear. Abdomen: Soft. No tenderness elicited. Extremities: Negative for edema. No sacral or heel decubiti present. Genitourinary: No genital lesions noted. IMPRESSION: 1. Positive RPR. 2. Dementia. 3. Status post syncope. I was able to confirm that the patient had a positive syphilis serology in 2013 and had received 3 intramuscular injections of benzathine penicillin. There has been a 4-fold drop in titer consistent with successful treatment. No further treatment is advised. Would obtain HIV testing if status not known. Doubt urinary tract infection. Would observe off antibiotic therapy. Thank you for the kind referral. SERENA ROSAS M.D. [id number]
[2016-07-20] MEDS ORDERED: INSULIN (NOVOLOG) ASPART 100 UNITS/ML 10ML VIAL ONE (16:35)
[2016-07-21] MEDS: AMINO ACIDS 4.25%/D5W 1,000 ML IV SCH ×2 (01:15→12:59)
[2016-07-21] MEDS: GABAPENTIN 100 MG CAPSULE (FP) PO SCH (06:02)
[2016-07-21] MEDS: INSULIN SLIDING SCALE (NOVOLOG) 1 VIAL SQ SCH ×2 (06:03→11:18)
--- NOTE | 2016-07-21 08:32 | PN ---
Progress Note (short form) - Note Progress Note: SUBJECTIVE: Patient seen and examined. Comfortable. Mood pleasant today. Nurse reports he ate well. OBJECTIVE: Vital Signs 07/21/16 07/21/16 02:00 05:38 Temperature 98.5 F 98.0 F Pulse Rate 109 H 107 H Respiratory 20 18 Rate Blood Pressure 147/93 131/62 Intake & Output 07/20/16 07/21/16 07/21/16 23:59 07:59 15:59 Intake Total 120 200 Balance 120 200 Intake: Oral 120 200 Other: Voiding Method Diaper Incontinent # Unmeasured Voids Void 2 Active Medications Acetaminophen (Tylenol -) 650 mg PO Q6H PRN PRN Reason: FEVER OR PAIN Atorvastatin Calcium (Lipitor -) 20 mg PO HS [facility] Last Admin: 07/20/16 21:15 Dose: Not Given Donepezil HCl (Aricept -) 10 mg PO DAILY [facility] Last Admin: 07/21/16 09:12 Dose: 10 mg Gabapentin (Neurontin -) 100 mg PO TID [facility] Last Admin: 07/21/16 06:02 Dose: Not Given Heparin Sodium (Porcine) (Heparin -) 5,000 unit SQ BID [facility] Last Admin: 07/21/16 09:12 Dose: 5,000 unit Hydralazine HCl (Apresoline Injection -) 10 mg IVPUSH Q6H PRN PRN Reason: HYPERTENSION Ceftriaxone Sodium (Rocephin 1gm Ivpb (Pre-Docked)) 50 mls @ 100 mls/hr IVPB DAILY [facility] Last Admin: 07/21/16 09:12 Dose: 100 mls/hr Amino Acids (Clinimix -) 1,000 mls @ 84 mls/hr IV Q12H [facility] Last Admin: 07/21/16 01:15 Dose: 84 mls/hr Insulin Aspart (Novolog Vial Sliding Scale -) 1 vial SQ TIDAC [facility] PRN Reason: Protocol Last Admin: 07/21/16 06:03 Dose: 6 units Lorazepam (Ativan Injection -) 1 mg IVPUSH Q6H PRN PRN Reason: ANXIETY Last Admin: 07/19/16 16:17 Dose: 1 mg Losartan Potassium (Cozaar -) 25 mg PO DAILY [facility] Last Admin: 07/21/16 09:12 Dose: 25 mg Pantoprazole Sodium (Protonix -) 40 mg PO DAILY [facility] Last Admin: 07/21/16 09:12 Dose: 40 mg Tamsulosin HCl (Flomax -) 0.4 mg PO DAILY@0830 [facility] Last Admin: 07/21/16 09:12 Dose: 0.4 mg Thiamine HCl (Vitamin B1 -) 100 mg PO DAILY [facility] Last Admin: 07/21/16 09:12 Dose: 100 mg CBC, BMP 07/20/16 10:45 07/20/16 10:45 Laboratory Results - last 24 hr 07/20/16 07/20/16 07/20/16 10:45 10:45 10:45 WBC 4.6 D RBC 5.37 Hgb 13.8 Hct 43.4 MCV 80.8 MCHC 31.7 L RDW 14.9 Plt Count 153 MPV 8.8 Neutrophils % 55.2 Lymphocytes % 32.7 Monocytes % 9.9 Eosinophils % 1.7 Basophils % 0.5 Sodium 139 Potassium 3.7 Chloride 104 Carbon Dioxide 26 Anion Gap 9 BUN 8 D Creatinine 0.8 D Creat Clearance w eGFR > 60 POC Glucometer Random Glucose 105 D Calcium 9.2 Total Bilirubin 0.5 D AST 23 ALT 26 D Alkaline Phosphatase 73 D Total Protein 6.3 L Albumin 3.0 L Vitamin B12 865 TSH 2.02 RPR Titer Reactive 1:4 H T.pallidum Ab (MHA) Reactive 07/20/16 07/20/16 07/21/16 11:49 15:48 05:47 WBC RBC Hgb Hct MCV MCHC RDW Plt Count MPV Neutrophils % Lymphocytes % Monocytes % Eosinophils % Basophils % Sodium Potassium Chloride Carbon Dioxide Anion Gap BUN Creatinine Creat Clearance w eGFR POC Glucometer 123 169 251 Random Glucose Calcium Total Bilirubin AST ALT Alkaline Phosphatase Total Protein Albumin Vitamin B12 TSH RPR Titer T.pallidum Ab (MHA) PHYSICAL EXAMINATION: Constitutional: Yes: No Distress Cardiovascular: Yes: Regular Rate and Rhythm Respiratory: Yes: CTA Bilaterally Gastrointestinal: Yes: Normal Bowel Sounds, Soft. No: Distention, Palpable Mass , Tenderness Edema: No Problem List - Problems (1) Altered mental status Code(s): R41.82 - ALTERED MENTAL STATUS, UNSPECIFIED Qualifiers: Altered mental status type: unspecified Qualified Code(s): R41.82 - Altered mental status, unspecified (2) Dementia Code(s): F03.90 - UNSPECIFIED DEMENTIA WITHOUT BEHAVIORAL DISTURBANCE Qualifiers: Dementia type: unspecified type Dementia behavioral disturbance: without behavioral disturbance Qualified Code(s): F03.90 - Unspecified dementia without behavioral disturbance (3) HTN (hypertension) Code(s): I10 - ESSENTIAL (PRIMARY) HYPERTENSION (4) UTI (urinary tract infection) Code(s): N39.0 - URINARY TRACT INFECTION, SITE NOT SPECIFIED ASSESSMENT & PLAN: - Discontinue antibiotics. - Ishan for safety. - RPR positive. - ID consult noted and appreciated. - Very likely will need placement. - Urine culture negative. - Discharge planning. - If stable, will consider discharge tomorrow. - Discontinue Clinimix when present bag finishes. Documentation prepared by Steffanie Jules, acting as a er medical technician for Luis Balderas MD.
[2016-07-21] MEDS: LOSARTAN POTASSIUM 25 MG TABLET PO SCH (09:12)
[2016-07-21] MEDS: TAMSULOSIN HCL 0.4 MG CAP.ER.24H (FP) PO SCH (09:12)
[2016-07-21] MEDS: PANTOPRAZOLE 40 MG TABLET (FP) PO SCH (09:12)
[2016-07-21] MEDS: DONEPEZIL HCL 10 MG TABLET (FP) PO SCH (09:12)
[2016-07-21] MEDS: CEFTRIAXONE 50 ML IVPB SCH (09:12)
[2016-07-21] MEDS: THIAMINE HCL 100 MG TABLET (FP) PO SCH (09:12)
[2016-07-21] MEDS: HEPARIN NA (PORCINE) 5,000 UNITS/ML 1ML VIAL SQ SCH (09:12)
--- NOTE | 2016-07-21 10:44 | DS ---
Physical Examination Vital Signs: Vital Signs Temperature 98.0 F 07/21/16 05:38 Pulse Rate 107 H 07/21/16 05:38 Respiratory Rate 18 07/21/16 05:38 Blood Pressure 131/62 07/21/16 05:38 O2 Sat by Pulse Oximetry (%) 98 07/20/16 21:00 Findings/Remarks: see today progress note pt ok admitted for ams resolved will d/c home today discussed with wrapper caser pt has to go to home with vns with insurance issues. will send on abx for sinusitis Labs: CBC, BMP 07/20/16 10:45 07/20/16 10:45 Discharge Summary Reason For Visit: DEMENTIA, AMS, SYNCOPE Current Active Problems Altered mental status (Acute) Dementia (Acute) Syncope (Acute) UTI (urinary tract infection) (Acute) Hospital Course: pt ok admitted for ams resolved will d/c home today discussed with wrapper caser pt has to go to home with vns with insurance issues. will send on abx for sinusitis +ve rpr -- s/p treatment in past Condition: Stable - Instructions Referrals: Luis Balderas MD [Primary Care Provider] - Disposition: VNS/HOME HEALTH CARE - Home Medications Comprehensive Discharge Medication List: Ambulatory Orders Donepezil HCl [Aricept -] 10 mg PO DAILY 06/28/16 Gabapentin 100 mg PO TID 06/28/16 Losartan Potassium 25 mg PO DAILY 06/28/16 Acetaminophen [Tylenol .Regular Strength -] 650 mg PO Q6H PRN #0 tablet Atorvastatin Ca [Lipitor] 20 mg PO HS tablet 06/30/16 Tamsulosin HCl [Flomax -] 0.4 mg PO DAILY@0830 cap.er.24h 06/30/16 Metformin HCl 500 mg PO BID #0 07/04/16 Pantoprazole Sodium [Protonix] 40 mg PO DAILY #0 07/04/16 Thiamine HCl [B-1] 100 mg PO DAILY #60 tablet 07/04/16
--- NOTE | 2016-07-21 11:00 | PN ---
Progress Note (short form) - Note Progress Note: s: non communicative, mumbling, lethargic, appears comfortable, no overnight events o: Vital Signs Period Temp Pulse Resp BP Sys/Farias Pulse Ox Last 24 Hr 96.9 F-98.5 F 86-109 18-20 131-147/62-99 98 nad no jvd rrr s1s2 no mrg cta bl , poor effort no le e/c/c abd nd pos bs no jaundice diaphoresis lethargic, not communicative Current Medications Generic Name Dose Route Start Last Admin Trade Name Freq PRN Reason Stop Dose Admin Acetaminophen 650 mg 07/18/16 01:32 Tylenol - PO Q6H PRN FEVER OR PAIN Atorvastatin Calcium 20 mg 07/18/16 22:00 07/20/16 21:15 Lipitor - PO Not Given HS KATHRYN Donepezil HCl 10 mg 07/18/16 10:00 07/21/16 09:12 Aricept - PO 10 mg DAILY KATHRYN Administration Gabapentin 100 mg 07/18/16 06:00 07/21/16 06:02 Neurontin - PO Not Given TID KATHRYN Heparin Sodium (Porcine) 5,000 unit 07/18/16 22:00 07/21/16 09:12 Heparin - SQ 5,000 unit BID KATHRYN Administration Hydralazine HCl 10 mg 07/20/16 10:40 Apresoline Injection - IVPUSH Q6H PRN HYPERTENSION Amino Acids 1,000 mls @ 84 mls/hr 07/20/16 10:30 07/21/16 01:15 Clinimix - IV 84 mls/hr Q12H KATHRYN Administration Insulin Aspart 1 vial 07/18/16 16:30 07/21/16 06:03 Novolog Vial Sliding Scale - SQ 6 units TIDAC KATHRYN Administration Protocol Lorazepam 1 mg 07/18/16 01:33 07/19/16 16:17 Ativan Injection - IVPUSH 1 mg Q6H PRN Administration ANXIETY Losartan Potassium 25 mg 07/18/16 10:00 07/21/16 09:12 Cozaar - PO 25 mg DAILY KATHRYN Administration Pantoprazole Sodium 40 mg 07/18/16 10:00 07/21/16 09:12 Protonix - PO 40 mg DAILY KATHRYN Administration Tamsulosin HCl 0.4 mg 07/18/16 08:30 07/21/16 09:12 Flomax - PO 0.4 mg DAILY@0830 KATHRYN Administration Thiamine HCl 100 mg 07/18/16 10:00 07/21/16 09:12 Vitamin B1 - PO 100 mg DAILY KATHRYN Administration CBC, BMP 07/20/16 10:45 07/20/16 10:45 tele: sr cxr: clear lungs head ct: no acute findings ecg 07/17/16: sr, nl intervals, LAD, no ischemic changes carotid us 07/2016: no sig stenosis echo 07/2016: tds; nl lv/rv, no sig valve path a/p: 80 m hx dementia, htn, hld, dm, here with ams, possible syncope. ams, possible syncope: -trop negx2, ecg w/o ischemic changes, no signs acs or chf -tele benign several days -echo and carotid us unremarkable -no suggestion of cardiac etiology -possibly related to UTI, getting abx -can dc tele htn: -cont cozaar hld: -cont statin selam: -improved after ivfs can dc tele
[2016-07-21 12:03] VITALS: BP 136/80; PULSE 98; TEMP 98
== END 2016-07-21 13:33 | disposition home health service (06) | DRG 884 ==
LOC: JER 20:18 → OBSVTOIN 07-18 00:39 → JERBED 07-18 00:39 → J4W 07-18 02:46
PROVIDERS: ADMIT Internal Medicine; ATTEND Internal Medicine
DX: F03.90 Unspecified dementia, unspecified severity, without behavioral disturbance, psychotic disturbance, mood disturbance, and anxiety (principal); N39.0 Urinary tract infection, site not specified; N17.9 Acute kidney failure, unspecified; I10 Essential (primary) hypertension; E78.5 Hyperlipidemia, unspecified; E11.9 Type 2 diabetes mellitus without complications; R41.82 Altered mental status, unspecified; R55 Syncope and collapse; K21.9 Gastro-esophageal reflux disease without esophagitis
CPT/HCPCS: 36415; 70450-TC; 71010-TC; 80048; 80053; 81003; 81015; 82550; 82553; 82607; 84425; 84443; 84484; 85025; 85610; 85730; 86593; 86780; 87086; 93005; 93010; 93306-TC; 93880-TC; 99284-25; J1644

== ENCOUNTER 2016-08-27 20:30 | Inpatient (IN) | payer MEDICARE, OTHER ==
[2016-08-27 20:46] VITALS: BMI 22.3
--- NOTE | 2016-08-27 20:50 | PDOC ---
History of Present Illness - History of Present Illness Initial Comments: 08/27/16 21:30 The patient is an 80 year old male with a past medical hx of dementia, hypertension, hyperlipidemia, diabetes, renal failure who presents to the ED via EMS complaining of diarrhea for 5 days. The patients aide reports he has been having diarrhea constantly. She states the patient fell yesterday and fell two times today. The aide denies any loss of consciousness. The patient denies abdominal pain, nausea, vomiting, fever, chills PCP: Dr. Nandini Tomlinson Allergies: NKDA <Patricia Dugan - Last Filed: 08/27/16 23:31> <Doris Weathers - Last Filed: 08/28/16 00:42> - General Chief Complaint: Weakness Stated Complaint: DIARRHEA/WEAKNESS Time Seen by Provider: 08/27/16 20:40 Past History <Patricia Dugan - Last Filed: 08/27/16 23:31> - Past Medical History Dementia: Yes Diabetes: Yes HTN: Yes - Psycho/Social/Smoking Cessation Hx Suicidal Ideation: No Smoking History: Never smoked Have you smoked in the past 12 months: No Information on smoking cessation initiated: No Hx Alcohol Use: No Drug/Substance Use Hx: No <Doris Weathers - Last Filed: 08/28/16 00:42> - Past Medical History Allergies/Adverse Reactions: Allergies Allergy/AdvReac Type Severity Reaction Status Date / Time No Known Allergies Allergy Verified 08/27/16 20:44 Home Medications: Ambulatory Orders Donepezil HCl [Aricept -] 10 mg PO DAILY 06/28/16 Gabapentin 100 mg PO TID 06/28/16 Losartan Potassium 25 mg PO DAILY 06/28/16 Atorvastatin Ca [Lipitor] 20 mg PO HS tablet 06/30/16 Tamsulosin HCl [Flomax -] 0.4 mg PO DAILY@0830 cap.er.24h 06/30/16 Metformin HCl 500 mg PO BID #0 07/04/16 Pantoprazole Sodium [Protonix] 40 mg PO DAILY #0 07/04/16 Thiamine HCl [B-1] 100 mg PO DAILY #60 tablet 07/04/16 Amoxicillin/Potassium Clav [Augmentin 500-125 Tablet] 1 each PO BID #10 tablet 07/21/16 Review of Systems - Review of Systems Able to Perform ROS?: Yes Comments:: 08/27/16 21:31 CONSTITUTIONAL: Absent: fever, chills, diaphoresis, generalized weakness, malaise, loss of appetite HEENT: Absent: rhinorrhea, nasal congestion, throat pain, throat swelling, difficulty swallowing, mouth swelling, ear pain, eye pain, visual Changes CARDIOVASCULAR: Absent: chest pain, syncope, palpitations, irregular heart rate, lightheadedness , peripheral edema RESPIRATORY: Absent: cough, shortness of breath, dyspnea with exertion, orthopnea, wheezing, stridor, hemoptysis GASTROINTESTINAL: +Diarrhea. Absent: abdominal pain, abdominal distension, nausea, vomiting, constipation, melena, hematochezia GENITOURINARY: Absent: dysuria, frequency, urgency, hesitancy, hematuria, flank pain, genital pain MUSCULOSKELETAL: Absent: myalgia, arthralgia, joint swelling SKIN: Absent: rash, itching, pallor NEUROLOGIC: Absent: headache, focal weakness or paresthesias, dizziness, unsteady gait, seizure, mental status changes, bladder or bowel incontinence PSYCHIATRIC: Absent: anxiety, depression, suicidal or homicidal ideation, hallucinations. <Patricia Dugan - Last Filed: 08/27/16 23:31> *Physical Exam - Vital Signs Last Vital Signs Temp Pulse Resp BP Pulse Ox 97.2 F L 98 H 20 122/72 99 08/27/16 20:44 08/27/16 20:44 08/27/16 20:44 08/27/16 20:44 08/27/16 20:44 - Physical Exam Comments: 08/27/16 21:31 GENERAL: +Agitated. Well developed, well nourished. Awake and alert. No acute distress. HEENT: +Dry mucous membranes. Normocephalic, atraumatic. PERRLA, EOMI. No conjunctival pallor. Sclera are non-icteric. Oropharynx is clear. NECK: Supple. Full ROM. No JVD. Carotid pulses 2+ and symmetric, without bruits. No thyromegaly. No lymphadenopathy. CARDIOVASCULAR: +Tachycardic, regular rhythm. No murmurs, rubs, or gallops. Distal pulses are 2 + and symmetric. PULMONARY: No evidence of respiratory distress. Lungs clear to auscultation bilaterally. No wheezing, rales or rhonchi. ABDOMINAL: Soft. Non-tender. Non-distended. No rebound or guarding. No organomegaly. Normoactive bowel sounds. MUSCULOSKELETAL Moving all extremities. Normal range of motion at all joints. No bony deformities or tenderness. No CVA tenderness. EXTREMITIES: No cyanosis. No clubbing. No edema. No calf tenderness. SKIN:Dry skin. Warm. Normal capillary refill. No rashes. No jaundice. NEUROLOGICAL: Alert, awake, agitated. Cranial nerves 2-12 intact. No deficits to light touch and temperature in face, upper extremities and lower extremities. No motor deficits in the in face, upper extremities and lower extremities. <Patricia Dugan - Last Filed: 08/27/16 23:31> - Vital Signs Last Vital Signs Temp Pulse Resp BP Pulse Ox 97.2 F L 98 H 20 122/72 99 08/27/16 20:44 08/27/16 20:44 08/27/16 20:44 08/27/16 20:44 08/27/16 20:44 <Doris Weathers - Last Filed: 08/28/16 00:42> Heart Score/ECG Review - ECG Impressions Comment:: 08/27/16 23:[address] Weathers NSR at a rate of 96 bpm Normal EKG <Patricia Dugan - Last Filed: 08/27/16 23:31> ED Treatment Course - Medications Given in the ED: ED Medications Discontinued Medications Generic Name Dose Route Start Last Admin Trade Name Freq PRN Reason Stop Dose Admin Haloperidol 5 mg 08/27/16 21:02 08/27/16 21:07 Haldol Injection (Fast Acting) - IM 08/27/16 21:03 5 mg ONCE ONE Administration <Patricia Dugan - Last Filed: 08/27/16 23:31> - LABORATORY CBC & Chemistry Diagram: 08/28/16 00:01 08/28/16 00:01 <Doris Weathers - Last Filed: 08/28/16 00:42> Medical Decision Making - Medical Decision Making 08/27/16 23:[address] Tomlinson at 22:39 via answering service, awaiting call back. Dr. Tomlinson called back at 22:46, the patients case was discussed. <Patricia Dugan - Last Filed: 08/27/16 23:31> *DC/Admit/Observation/Transfer - Attestations Scribe Attestion: 08/27/16 21:31 Documentation prepared by Patricia Dugan, acting as chief medical technologist for Doris Weathers MD/DO. <Patricia Dugan - Last Filed: 08/27/16 23:31> - Discharge Dispostion Admit: Yes <Doris Weathers - Last Filed: 08/28/16 00:42> Diagnosis at time of Disposition: Renal failure, Dehydration Dementia Qualifiers: Dementia type: unspecified type Dementia behavioral disturbance: with behavioral disturbance Qualified Code(s): F03.91 - Unspecified dementia with behavioral disturbance Diarrhea Qualifiers: Diarrhea type: unspecified type Qualified Code(s): R19.7 - Diarrhea, unspecified - Referrals Referrals: Luis Balderas MD [Primary Care Provider] -
[2016-08-27] MEDS ORDERED: SODIUM CHLORIDE 1,000 ML IV STA (20:55)
[2016-08-27] MEDS ORDERED: HALOPERIDOL LACTATE 5 MG/ML IM ONE (21:02)
[2016-08-27] MEDS ORDERED: HALOPERIDOL LACTATE 5 MG/ML ONE (21:02)
[2016-08-27] MEDS ORDERED: LORAZEPAM CARPU-JECT 2 MG/ML DISP.SYRIN IM ONE (21:57)
[2016-08-27] MEDS ORDERED: LORAZEPAM CARPU-JECT 2 MG/ML DISP.SYRIN ONE ×2 (21:59→22:58)
[2016-08-27] MEDS ORDERED: LORAZEPAM CARPU-JECT 2 MG/ML DISP.SYRIN IVPUSH ONE (23:48)
[2016-08-28 00:09] LABS: BASOPHIL 0.4 % (0-2.0); EOSINOPHIL 0.3 % (0-4.5); MCH 26.8 pg (25.7-33.7); MCHC 32.9 g/dl (32.0-35.9); MEAN CELL VOLUME 81.3 fl (80-96); MEAN PLT VOLUME 9.1 fl (7.5-11.1); PLATELET COUNT 211 K/MM3 (134-434); RDW 16.2 % (11.9-15.9); WHITE BLOOD COUNT 10.6 K/mm3 (4.0-10.0)
[2016-08-28 00:27] LABS: INR 1.05 (0.82-1.09); PROTHROMBIN TIME (PATIENT) 11.6 SEC (9.98-11.88)
[2016-08-28 00:31] LABS: ALBUMIN 2.8 g/dl (3.4-5.0); BILIRUBIN,TOTAL 0.6 mg/dL (0.2-1.0); CALCIUM 9.6 mg/dL (8.5-10.1); COCKROFT - GAULT 24.77; CREATININE 2.4 mg/dL (0.7-1.3); TOT PROT 5.9 g/dl (6.4-8.2)
[2016-08-28 00:33] LABS: TROPONIN I 0.03 ng/ml (0.00-0.05)
[2016-08-28] MEDS ORDERED: LORAZEPAM CARPU-JECT 2 MG/ML DISP.SYRIN ONE (01:11)
[2016-08-28] MEDS ORDERED: LORAZEPAM CARPU-JECT 2 MG/ML DISP.SYRIN IVPUSH ONE (02:19)
[2016-08-28] MEDS ORDERED: ACETAMINOPHEN 325 MG TABLET (FP) PO PRN ×2 (08:20→22:11)
--- NOTE | 2016-08-28 08:25 | HP ---
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 The patients aide reports he has been having diarrhea constantly. She states the patient fell yesterday and fell two times today. The aide denies any loss of consciousness. The patient denies abdominal pain, nausea, vomiting, fever, chills Patient found to be dehydrated as well as in Acute renal failure. Patient given fluids and admitted to the floor. Case was discussed with ED physician last night Patient seen and examined today. At presents, sleeping and calm. Periods of agitation. C diff was ordered but apparently no sample sent yet. Afebrile. History Source: Patient, Family Member Limitations to Obtaining History: No Limitations <Cleo Charles - Last Filed: 08/28/16 10:03> Home Medications <Luis Balderas - Last Filed: 08/28/16 08:25> <Cleo Charles - Last Filed: 08/28/16 10:03> - Allergies Allergies/Adverse Reactions: Allergies Allergy/AdvReac Type Severity Reaction Status Date / Time No Known Allergies Allergy Verified 08/27/16 20:44 - Home Medications Home Medications: Ambulatory Orders Donepezil HCl [Aricept -] 10 mg PO DAILY 06/28/16 Gabapentin 100 mg PO TID 06/28/16 Losartan Potassium 25 mg PO DAILY 06/28/16 Atorvastatin Ca [Lipitor] 20 mg PO HS tablet 06/30/16 Tamsulosin HCl [Flomax -] 0.4 mg PO DAILY@0830 cap.er.24h 06/30/16 Metformin HCl 500 mg PO BID #0 07/04/16 Pantoprazole Sodium [Protonix] 40 mg PO DAILY #0 07/04/16 Thiamine HCl [B-1] 100 mg PO DAILY #60 tablet 07/04/16 Amoxicillin/Potassium Clav [Augmentin 500-125 Tablet] 1 each PO BID #10 tablet 07/21/16 Review of Systems Findings/Remarks: see HPI <MelvinCleo - Last Filed: 08/28/16 10:03> Physical Examination Vital Signs: Vital Signs Temperature 97.3 F L 08/28/16 06:00 Pulse Rate 99 H 08/28/16 06:00 Respiratory Rate 20 08/28/16 06:00 Blood Pressure 144/82 08/28/16 06:00 O2 Sat by Pulse Oximetry (%) 100 08/28/16 01:27 <Luis Balderas - Last Filed: 08/28/16 08:25> Vital Signs: Vital Signs Temperature 97.3 F L 08/28/16 06:00 Pulse Rate 99 H 08/28/16 06:00 Respiratory Rate 20 08/28/16 06:00 Blood Pressure 144/82 08/28/16 06:00 O2 Sat by Pulse Oximetry (%) 100 08/28/16 01:27 Constitutional: Yes: No Distress, Calm Eyes: Yes: Conjunctiva Clear Neck: Yes: Supple Cardiovascular: Yes: Regular Rate and Rhythm Respiratory: Yes: CTA Bilaterally Gastrointestinal: Yes: Normal Bowel Sounds, Soft Edema: No <Cleo Charles - Last Filed: 08/28/16 10:03> Imaging - Results Chest X-ray: Report Reviewed Cat Scan: Report Reviewed <MelvinCleo - Last Filed: 08/28/16 10:03> Problem List - Problems (1) Dehydration Code(s): E86.0 - DEHYDRATION (2) Dementia Code(s): F03.90 - UNSPECIFIED DEMENTIA WITHOUT BEHAVIORAL DISTURBANCE Qualifiers: Dementia type: unspecified type Dementia behavioral disturbance: with behavioral disturbance Qualified Code(s): F03.91 - Unspecified dementia with behavioral disturbance; F10.97 - Alcohol use, unspecified with alcohol- induced persisting dementia (3) Diarrhea Code(s): R19.7 - DIARRHEA, UNSPECIFIED Qualifiers: Diarrhea type: unspecified type Qualified Code(s): R19.7 - Diarrhea, unspecified (4) Renal failure Code(s): N19 - UNSPECIFIED KIDNEY FAILURE (5) Diabetes Code(s): E11.9 - TYPE 2 DIABETES MELLITUS WITHOUT COMPLICATIONS <Cleo Charles - Last Filed: 08/28/16 10:03> Assessment/Plan Admit to Med Surg. Continue mild hydration. Will start on Flagyl as C diff is concerned-- patient was recently treated with abx. Hold VIANNEY inhibitors and Metformin Monitor BG. Patient unable to take oral pills now due to condition-- will change PO flagyl to IV flagyl. Continue other medications. Haldol for agitation. Follow up electrolytes Will follow. Documentation prepared by Cleo Charles, acting as a medical records tech for Luis Balderas MD. <Cleo Charles - Last Filed: 08/28/16 10:03>
[2016-08-28] MEDS ORDERED: metroNIDAZOLE 250 MG TABLET PO SCH (08:30)
[2016-08-28] MEDS ORDERED: TAMSULOSIN HCL 0.4 MG CAP.ER.24H (FP) PO SCH (08:30)
[2016-08-28] MEDS ORDERED: SODIUM CHLORIDE 1,000 ML IV SCH (09:00)
[2016-08-28] MEDS ORDERED: HALOPERIDOL LACTATE 5 MG/ML IM PRN (09:53)
[2016-08-28] MEDS ORDERED: PANTOPRAZOLE 40 MG TABLET (FP) PO SCH (10:00)
[2016-08-28] MEDS ORDERED: DONEPEZIL HCL 10 MG TABLET (FP) PO SCH (10:00)
[2016-08-28] MEDS ORDERED: THIAMINE HCL 100 MG TABLET (FP) PO SCH (10:00)
[2016-08-28] MEDS: METRONIDAZOLE 500 MG PREMIXED 100 ML IVPB SCH ×2 (10:39→17:54)
--- NOTE | 2016-08-28 11:06 | EKG ---
Test Reason : Blood Pressure : / mmHG Vent. Rate : 096 BPM Atrial Rate : 096 BPM P-R Int : 146 ms QRS Dur : 090 ms QT Int : 350 ms P-R-T Axes : 056 -85 025 degrees QTc Int : 442 ms POOR DATA QUALITY, INTERPRETATION MAY BE ADVERSELY AFFECTED NORMAL SINUS RHYTHM LEFT ANTERIOR FASCICULAR BLOCK ABNORMAL ECG WHEN COMPARED WITH ECG OF 17-JUL-2016 22:18, NO SIGNIFICANT CHANGE WAS FOUND Confirmed by CRISTOBAL NOONAN MD ([id number]) on 08/28/2016 11:06:24 AM Referred By: Confirmed By:CRISTOBAL NOONAN MD
[2016-08-28] MEDS: HEPARIN NA (PORCINE) 5,000 UNITS/ML 1ML VIAL SQ SCH ×2 (11:43→22:25)
[2016-08-28] MEDS: INSULIN SLIDING SCALE (NOVOLOG) 1 VIAL SQ SCH ×2 (12:24→16:44)
[2016-08-28] MEDS: GABAPENTIN 100 MG CAPSULE (FP) PO SCH ×2 (15:21→22:24)
[2016-08-28] MEDS ORDERED: ATORVASTATIN CA 20 MG TABLET (FP) PO SCH (22:00)
[2016-08-28] MEDS: SODIUM CHLORIDE 1,000 ML IV SCH (22:14)
[2016-08-28] MEDS: ATORVASTATIN CA 20 MG TABLET (FP) PO SCH (22:23)
[2016-08-29] MEDS: METRONIDAZOLE 500 MG PREMIXED 100 ML IVPB SCH ×3 (02:14→17:36)
[2016-08-29] MEDS: GABAPENTIN 100 MG CAPSULE (FP) PO SCH ×4 (06:26→23:55)
[2016-08-29] MEDS: HEPARIN NA (PORCINE) 5,000 UNITS/ML 1ML VIAL SQ SCH ×2 (07:27→11:59)
[2016-08-29] MEDS: INSULIN SLIDING SCALE (NOVOLOG) 1 VIAL SQ SCH ×3 (07:27→17:42)
[2016-08-29] MEDS ORDERED: PANTOPRAZOLE 40 MG TABLET (FP) PO SCH (10:00)
[2016-08-29 11:03] LABS: MCHC 31.2 g/dl (32.0-35.9); MEAN CELL VOLUME 83.4 fl (80-96); MEAN PLT VOLUME 9.1 fl (7.5-11.1); PLATELET COUNT 223 K/MM3 (134-434); RDW 16.5 % (11.9-15.9); WHITE BLOOD COUNT 6.3 K/mm3 (4.0-10.0)
[2016-08-29] MEDS: TAMSULOSIN HCL 0.4 MG CAP.ER.24H (FP) PO SCH (11:56)
[2016-08-29] MEDS: DONEPEZIL HCL 10 MG TABLET (FP) PO SCH (11:56)
[2016-08-29] MEDS: THIAMINE HCL 100 MG TABLET (FP) PO SCH (11:57)
[2016-08-29] MEDS: PANTOPRAZOLE SODIUM 40 MG/100 ML PRE-DOCKED IVPB SCH (12:03)
--- NOTE | 2016-08-29 12:19 | PN ---
Progress Note, Physician Chief Complaint: noted to have dark colored stools - loose - yesterday night and today awake No distress mumbles , confused- at baseline - Current Medication List Current Medications: Active Medications Acetaminophen (Tylenol -) 650 mg PO Q4H PRN PRN Reason: FEVER OR PAIN Atorvastatin Calcium (Lipitor -) 20 mg PO HS [facility] Last Admin: 08/28/16 22:23 Dose: Not Given Donepezil HCl (Aricept -) 10 mg PO DAILY [facility] Last Admin: 08/29/16 11:56 Dose: Not Given Gabapentin (Neurontin -) 100 mg PO TID [facility] Last Admin: 08/29/16 06:26 Dose: Not Given Haloperidol (Haldol Injection (Fast Acting) -) 5 mg IM Q4H PRN PRN Reason: AGITATION Heparin Sodium (Porcine) (Heparin -) 5,000 unit SQ BID [facility] Last Admin: 08/29/16 11:59 Dose: Not Given Sodium Chloride (Normal Saline -) 1,000 mls @ 100 mls/hr IV ASDIR [facility] Last Admin: 08/28/16 22:14 Dose: 100 mls/hr Metronidazole (Flagyl 500mg Premixed Ivpb -) 100 mls @ 100 mls/hr IVPB Q8H-IV [facility] Last Admin: 08/29/16 02:14 Dose: 100 mls/hr Insulin Aspart (Novolog Vial Sliding Scale -) 1 vial SQ TIDAC [facility] PRN Reason: Protocol Last Admin: 08/29/16 07:27 Dose: Not Given Pantoprazole Sodium (Protonix 40mg Ivpb (Pre-Docked)) 40 mg IVPB BID [facility] Last Admin: 08/29/16 12:03 Dose: 40 mg Tamsulosin HCl (Flomax -) 0.4 mg PO DAILY@0830 [facility] Last Admin: 08/29/16 11:56 Dose: Not Given Thiamine HCl (Vitamin B1 -) 100 mg PO DAILY [facility] Last Admin: 08/29/16 11:57 Dose: Not Given - Objective Vital Signs: Vital Signs Temperature 99.0 F 08/29/16 08:00 Pulse Rate 105 H 08/29/16 08:00 Respiratory Rate 18 08/29/16 08:00 Blood Pressure 169/94 08/29/16 08:00 O2 Sat by Pulse Oximetry (%) 98 08/29/16 08:00 Constitutional: Yes: No Distress Cardiovascular: Yes: Regular Rate and Rhythm Respiratory: Yes: Diminished Gastrointestinal: Yes: Normal Bowel Sounds, Soft. No: Distention, Tenderness Edema: No Labs: CBC, BMP 08/29/16 10:10 INR, PTT INR 1.05 (0.82-1.09) 08/28/16 00:01 Problem List - Problems (1) Dehydration Code(s): E86.0 - DEHYDRATION (2) Dementia Code(s): F03.90 - UNSPECIFIED DEMENTIA WITHOUT BEHAVIORAL DISTURBANCE Qualifiers: Dementia type: unspecified type Dementia behavioral disturbance: with behavioral disturbance Qualified Code(s): F03.91 - Unspecified dementia with behavioral disturbance; F10.97 - Alcohol use, unspecified with alcohol- induced persisting dementia (3) Diabetes Code(s): E11.9 - TYPE 2 DIABETES MELLITUS WITHOUT COMPLICATIONS (4) Diarrhea Code(s): R19.7 - DIARRHEA, UNSPECIFIED Qualifiers: Diarrhea type: unspecified type Qualified Code(s): R19.7 - Diarrhea, unspecified (5) Renal failure Code(s): N19 - UNSPECIFIED KIDNEY FAILURE (6) GI (gastrointestinal bleed) Code(s): K92.2 - GASTROINTESTINAL HEMORRHAGE, UNSPECIFIED Assessment/Plan PLAN on IV fluids monitor urine output CBC stable check stool guaic restraints to prevent injury to self GI eval IV protonix clear liquid diet
[2016-08-29] MEDS ORDERED: PT OWN MED DRAWER 7, Y5N ONE (17:34)
--- NOTE | 2016-08-29 19:08 | CON.GI ---
Consult Consult Specialty:: gastroenterology Referred by:: Dr Tomlinson/Andrey - History of Present Illness History of Present Illness: 80 y/o male was aslked to be seen for rectal bleeding. He has received Colace 5 days ago at home since then he developed diarrhea. He was admitted 1 month ago because of dehydration and change in mental status. He continued to have poor po intake while in the hospital. Staff having difficulty giving medication. 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 Cardio/Vascular: Yes: HTN, Hyperlipdemia - Alcohol/Substance Use Hx Alcohol Use: No - Smoking History Smoking history: Never smoked Have you smoked in the past 12 months: No - Social History Usual Living Arrangement: Alone Home Medications - Allergies Allergies/Adverse Reactions: Allergies Allergy/AdvReac Type Severity Reaction Status Date / Time No Known Allergies Allergy Verified 08/27/16 20:44 - Home Medications Home Medications: Ambulatory Orders Donepezil HCl [Aricept -] 10 mg PO DAILY 06/28/16 Gabapentin 100 mg PO TID 06/28/16 Losartan Potassium 25 mg PO DAILY 06/28/16 Atorvastatin Ca [Lipitor] 20 mg PO HS tablet 06/30/16 Tamsulosin HCl [Flomax -] 0.4 mg PO DAILY@0830 cap.er.24h 06/30/16 Metformin HCl 500 mg PO BID #0 07/04/16 Pantoprazole Sodium [Protonix] 40 mg PO DAILY #0 07/04/16 Thiamine HCl [B-1] 100 mg PO DAILY #60 tablet 07/04/16 Amoxicillin/Potassium Clav [Augmentin 500-125 Tablet] 1 each PO BID #10 tablet 07/21/16 Family Disease History - Family Disease History Family History: Unable to Obtain Review of Systems Unable to obtain ROS, reason: dementia Physical Exam-GI Vital Signs: Vital Signs Temperature 97.8 F 08/29/16 15:12 Pulse Rate 112 H 08/29/16 15:12 Respiratory Rate 18 08/29/16 15:12 Blood Pressure 122/72 08/29/16 15:12 O2 Sat by Pulse Oximetry (%) 98 08/29/16 08:00 Constitutional: Yes: Calm, Thin Eyes: Yes: Conjunctiva Clear HENT: Yes: Atraumatic Neck: Yes: Supple Cardiovascular: Yes: Regular Rate and Rhythm Respiratory: Yes: CTA Bilaterally ...Palpate: Yes: Soft. No: Firm/Rigid, Guarding, Hepatomegaly, Mass, Pulsatile Mass, Splenomegaly, Tenderness Labs: CBC, BMP 08/29/16 10:10 INR, PTT INR 1.05 (0.82-1.09) 08/28/16 00:01 Problem List - Problems (1) Failure to thrive Assessment/Plan: discussed procedure of PEG with Rosa his daughter in law, will discuss with her and let us know. Code(s): [id number] - (2) Rectal bleeding Assessment/Plan: R>for colonoscopy after PEG placement Code(s): K62.5 - HEMORRHAGE OF ANUS AND RECTUM
--- NOTE | 2016-08-29 19:10 | CON.GI ---
Consult Consult Specialty:: GI Referred by:: Dr Princess Balderas Reason for Consultation:: Rectal bleeding - History of Present Illness Chief Complaint: Frequent falls History of Present Illness: 80 M with h/o dementia, HTN, HLD, DM, CKD admitted with a 5 day h/o diarrhea. He states severe diarrhea and apparently he has been falling frequently. On admission patient was in ARF and was dehydrated. 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 Cardio/Vascular: Yes: HTN, Hyperlipdemia - Alcohol/Substance Use Hx Alcohol Use: No - Smoking History Smoking history: Never smoked Have you smoked in the past 12 months: No - Social History Usual Living Arrangement: Alone Home Medications - Allergies Allergies/Adverse Reactions: Allergies Allergy/AdvReac Type Severity Reaction Status Date / Time No Known Allergies Allergy Verified 08/27/16 20:44 - Home Medications Home Medications: Ambulatory Orders Donepezil HCl [Aricept -] 10 mg PO DAILY 06/28/16 Gabapentin 100 mg PO TID 06/28/16 Losartan Potassium 25 mg PO DAILY 06/28/16 Atorvastatin Ca [Lipitor] 20 mg PO HS tablet 06/30/16 Tamsulosin HCl [Flomax -] 0.4 mg PO DAILY@0830 cap.er.24h 06/30/16 Metformin HCl 500 mg PO BID #0 07/04/16 Pantoprazole Sodium [Protonix] 40 mg PO DAILY #0 07/04/16 Thiamine HCl [B-1] 100 mg PO DAILY #60 tablet 07/04/16 Amoxicillin/Potassium Clav [Augmentin 500-125 Tablet] 1 each PO BID #10 tablet 07/21/16 Physical Exam-GI Vital Signs: Vital Signs Temperature 97.8 F 08/29/16 15:12 Pulse Rate 112 H 08/29/16 15:12 Respiratory Rate 18 08/29/16 15:12 Blood Pressure 122/72 08/29/16 15:12 O2 Sat by Pulse Oximetry (%) 98 08/29/16 08:00 Constitutional: Yes: Thin Labs: CBC, BMP 08/29/16 10:10 INR, PTT INR 1.05 (0.82-1.09) 08/28/16 00:01
[2016-08-29] MEDS: ATORVASTATIN CA 20 MG TABLET (FP) PO SCH (23:55)
[2016-08-30] MEDS: SODIUM CHLORIDE 1,000 ML IV SCH ×3 (00:17→22:25)
[2016-08-30] MEDS: PANTOPRAZOLE SODIUM 40 MG/100 ML PRE-DOCKED IVPB SCH ×3 (00:17→22:03)
[2016-08-30] MEDS: METRONIDAZOLE 500 MG PREMIXED 100 ML IVPB SCH ×4 (01:31→17:52)
[2016-08-30] MEDS: GABAPENTIN 100 MG CAPSULE (FP) PO SCH ×3 (06:27→23:06)
[2016-08-30] MEDS: INSULIN SLIDING SCALE (NOVOLOG) 1 VIAL SQ SCH ×3 (06:27→17:53)
[2016-08-30 08:22] LABS: MCHC 31.7 g/dl (32.0-35.9); MEAN CELL VOLUME 82.1 fl (80-96); MEAN PLT VOLUME 8.9 fl (7.5-11.1); PLATELET COUNT 217 K/MM3 (134-434); RDW 16.3 % (11.9-15.9)
[2016-08-30 09:12] LABS: CALCIUM 9.8 mg/dL (8.5-10.1); COCKROFT - GAULT 60.32; CREATININE 0.9 mg/dL (0.7-1.3)
[2016-08-30] MEDS: DONEPEZIL HCL 10 MG TABLET (FP) PO SCH (09:27)
[2016-08-30] MEDS: THIAMINE HCL 100 MG TABLET (FP) PO SCH (09:27)
[2016-08-30] MEDS: TAMSULOSIN HCL 0.4 MG CAP.ER.24H (FP) PO SCH (09:27)
--- NOTE | 2016-08-30 10:17 | PN ---
Progress Note, Physician Chief Complaint: awake no distress he does not eat well tried to pull out iv line family spoke with GI-- they would like peg tube for nutrition needs - Current Medication List Current Medications: Active Medications Acetaminophen (Tylenol -) 650 mg PO Q4H PRN PRN Reason: FEVER OR PAIN Atorvastatin Calcium (Lipitor -) 20 mg PO HS [facility] Last Admin: 08/29/16 23:55 Dose: 20 mg Donepezil HCl (Aricept -) 10 mg PO DAILY [facility] Last Admin: 08/30/16 09:27 Dose: 10 mg Gabapentin (Neurontin -) 100 mg PO TID [facility] Last Admin: 08/30/16 06:27 Dose: Not Given Haloperidol (Haldol Injection (Fast Acting) -) 5 mg IM Q4H PRN PRN Reason: AGITATION Sodium Chloride (Normal Saline -) 1,000 mls @ 100 mls/hr IV ASDIR [facility] Last Admin: 08/30/16 00:17 Dose: 100 mls/hr Metronidazole (Flagyl 500mg Premixed Ivpb -) 100 mls @ 100 mls/hr IVPB Q8H-IV [facility] Last Admin: 08/30/16 09:27 Dose: 100 mls/hr Insulin Aspart (Novolog Vial Sliding Scale -) 1 vial SQ TIDAC [facility] PRN Reason: Protocol Last Admin: 08/30/16 06:27 Dose: Not Given Pantoprazole Sodium (Protonix 40mg Ivpb (Pre-Docked)) 40 mg IVPB BID [facility] Last Admin: 08/30/16 00:17 Dose: 40 mg Tamsulosin HCl (Flomax -) 0.4 mg PO DAILY@0830 [facility] Last Admin: 08/30/16 09:27 Dose: 0.4 mg Thiamine HCl (Vitamin B1 -) 100 mg PO DAILY [facility] Last Admin: 08/30/16 09:27 Dose: 100 mg - Objective Vital Signs: Vital Signs Temperature 97.7 F 08/30/16 06:00 Pulse Rate 105 H 08/30/16 06:00 Respiratory Rate 20 08/30/16 06:00 Blood Pressure 140/84 08/30/16 06:00 O2 Sat by Pulse Oximetry (%) 98 08/29/16 21:00 Constitutional: Yes: No Distress Cardiovascular: Yes: Regular Rate and Rhythm Respiratory: Yes: CTA Bilaterally Gastrointestinal: Yes: Normal Bowel Sounds, Soft. No: Distention, Tenderness Edema: No Labs: CBC, BMP 08/30/16 07:50 08/30/16 07:50 INR, PTT INR 1.05 (0.82-1.09) 08/28/16 00:01 Problem List - Problems (1) Dehydration Code(s): E86.0 - DEHYDRATION (2) Dementia Code(s): F03.90 - UNSPECIFIED DEMENTIA WITHOUT BEHAVIORAL DISTURBANCE Qualifiers: Dementia type: unspecified type Dementia behavioral disturbance: with behavioral disturbance Qualified Code(s): F03.91 - Unspecified dementia with behavioral disturbance; F10.97 - Alcohol use, unspecified with alcohol- induced persisting dementia (3) Diabetes Code(s): E11.9 - TYPE 2 DIABETES MELLITUS WITHOUT COMPLICATIONS (4) Diarrhea Code(s): R19.7 - DIARRHEA, UNSPECIFIED Qualifiers: Diarrhea type: unspecified type Qualified Code(s): R19.7 - Diarrhea, unspecified (5) Renal failure Code(s): N19 - UNSPECIFIED KIDNEY FAILURE (6) GI (gastrointestinal bleed) Code(s): K92.2 - GASTROINTESTINAL HEMORRHAGE, UNSPECIFIED Assessment/Plan PLAN on IV fluids monitor urine output CBC stable renal function better GI eval appreciated spoke with daughter in law who primarily cares for the pt-- she and the other family members would like peg tube placed he will colonoscopy afterwards IV protonix DVT prophylaxis-- SCD
--- NOTE | 2016-08-30 18:01 | PN ---
GI Progress Note Subjective: patient continue to have poor po intake, no rectal bleeding noted - Objective Vital Signs: Vital Signs Temperature 97.9 F 08/30/16 14:15 Pulse Rate 103 H 08/30/16 14:15 Respiratory Rate 16 08/30/16 14:15 Blood Pressure 169/104 08/30/16 14:15 O2 Sat by Pulse Oximetry (%) 99 08/30/16 09:00 Constitutional: Well Nourished Eyes: Yes: Conjunctiva Clear HENT: Yes: Atraumatic Neck: Yes: Supple Cardiovascular: Yes: Regular Rate and Rhythm Respiratory: Yes: CTA Bilaterally ...Palpate: Yes: Soft. No: Firm/Rigid, Guarding, Hepatomegaly, Mass, Pulsatile Mass, Splenomegaly, Tenderness Labs: CBC, BMP 08/30/16 07:50 08/30/16 07:50 INR, PTT INR 1.05 (0.82-1.09) 08/28/16 00:01 Problem List - Problems (1) Failure to thrive Assessment/Plan: R> patients family was made aware risk of pulling out the tube. They are willing to take responsibility if this occurs will schedule for PEG insertion Sunday Code(s): [id number] - (2) Rectal bleeding Code(s): K62.5 - HEMORRHAGE OF ANUS AND RECTUM
[2016-08-30] MEDS: ATORVASTATIN CA 20 MG TABLET (FP) PO SCH (23:11)
[2016-08-31] MEDS: HALOPERIDOL LACTATE 5 MG/ML IM PRN (01:55)
[2016-08-31] MEDS: METRONIDAZOLE 500 MG PREMIXED 100 ML IVPB SCH ×3 (02:03→17:35)
[2016-08-31] MEDS: GABAPENTIN 100 MG CAPSULE (FP) PO SCH ×3 (07:14→21:53)
[2016-08-31] MEDS: INSULIN SLIDING SCALE (NOVOLOG) 1 VIAL SQ SCH ×3 (07:14→17:41)
[2016-08-31 07:53] LABS: MCH 26.1 pg (25.7-33.7); MCHC 31.3 g/dl (32.0-35.9); MEAN CELL VOLUME 83.2 fl (80-96); MEAN PLT VOLUME 8.6 fl (7.5-11.1); PLATELET COUNT 221 K/MM3 (134-434); RDW 16.1 % (11.9-15.9); WHITE BLOOD COUNT 6.1 K/mm3 (4.0-10.0)
[2016-08-31 08:18] LABS: CALCIUM 9.2 mg/dL (8.5-10.1)
[2016-08-31 08:20] LABS: COCKROFT - GAULT 60.32; CREATININE 0.9 mg/dL (0.7-1.3)
[2016-08-31] MEDS: TAMSULOSIN HCL 0.4 MG CAP.ER.24H (FP) PO SCH (08:48)
[2016-08-31] MEDS: THIAMINE HCL 100 MG TABLET (FP) PO SCH (09:11)
[2016-08-31] MEDS: DONEPEZIL HCL 10 MG TABLET (FP) PO SCH (09:11)
--- NOTE | 2016-08-31 10:30 | PN ---
Progress Note, Physician Chief Complaint: no distress not eating not taking meds - Current Medication List Current Medications: Active Medications Acetaminophen (Tylenol -) 650 mg PO Q4H PRN PRN Reason: FEVER OR PAIN Atorvastatin Calcium (Lipitor -) 20 mg PO HS [facility] Last Admin: 08/30/16 23:11 Dose: 20 mg Donepezil HCl (Aricept -) 10 mg PO DAILY [facility] Last Admin: 08/31/16 09:11 Dose: 10 mg Gabapentin (Neurontin -) 100 mg PO TID [facility] Last Admin: 08/31/16 07:14 Dose: Not Given Haloperidol (Haldol Injection (Fast Acting) -) 5 mg IM Q4H PRN PRN Reason: AGITATION Last Admin: 08/31/16 01:55 Dose: 5 mg Sodium Chloride (Normal Saline -) 1,000 mls @ 100 mls/hr IV ASDIR [facility] Last Admin: 08/30/16 22:25 Dose: Not Given Metronidazole (Flagyl 500mg Premixed Ivpb -) 100 mls @ 100 mls/hr IVPB Q8H-IV [facility] Last Admin: 08/31/16 09:12 Dose: 100 mls/hr Insulin Aspart (Novolog Vial Sliding Scale -) 1 vial SQ TIDAC [facility] PRN Reason: Protocol Last Admin: 08/31/16 07:14 Dose: Not Given Pantoprazole Sodium (Protonix 40mg Ivpb (Pre-Docked)) 40 mg IVPB BID [facility] Last Admin: 08/30/16 22:03 Dose: 40 mg Tamsulosin HCl (Flomax -) 0.4 mg PO DAILY@0830 [facility] Last Admin: 08/31/16 08:48 Dose: 0.4 mg Thiamine HCl (Vitamin B1 -) 100 mg PO DAILY [facility] Last Admin: 08/31/16 09:11 Dose: 100 mg - Objective Vital Signs: Vital Signs Temperature 98.3 F 08/31/16 10:00 Pulse Rate 110 H 08/31/16 10:00 Respiratory Rate 18 08/31/16 10:00 Blood Pressure 110/93 08/31/16 10:00 O2 Sat by Pulse Oximetry (%) 97 08/30/16 21:00 Constitutional: Yes: No Distress Cardiovascular: Yes: Regular Rate and Rhythm Respiratory: Yes: CTA Bilaterally Gastrointestinal: Yes: Normal Bowel Sounds, Soft. No: Tenderness Edema: No Labs: CBC, BMP 08/31/16 06:30 08/31/16 06:30 INR, PTT INR 1.05 (0.82-1.09) 08/28/16 00:01 Problem List - Problems (1) Dehydration Code(s): E86.0 - DEHYDRATION (2) Dementia Code(s): F03.90 - UNSPECIFIED DEMENTIA WITHOUT BEHAVIORAL DISTURBANCE Qualifiers: Dementia type: unspecified type Dementia behavioral disturbance: with behavioral disturbance Qualified Code(s): F03.91 - Unspecified dementia with behavioral disturbance; F10.97 - Alcohol use, unspecified with alcohol- induced persisting dementia (3) Diabetes Code(s): E11.9 - TYPE 2 DIABETES MELLITUS WITHOUT COMPLICATIONS (4) Diarrhea Code(s): R19.7 - DIARRHEA, UNSPECIFIED Qualifiers: Diarrhea type: unspecified type Qualified Code(s): R19.7 - Diarrhea, unspecified (5) Renal failure Code(s): N19 - UNSPECIFIED KIDNEY FAILURE (6) GI (gastrointestinal bleed) Code(s): K92.2 - GASTROINTESTINAL HEMORRHAGE, UNSPECIFIED Assessment/Plan PLAN on IV fluids monitor urine output CBC stable renal function better GI eval appreciated spoke with daughter in law who primarily cares for the pt-- she and the other family members would like peg tube placed he will colonoscopy afterwards IV protonix DVT prophylaxis-- SCD
[2016-08-31] MEDS: PANTOPRAZOLE SODIUM 40 MG/100 ML PRE-DOCKED IVPB SCH ×2 (11:25→21:53)
[2016-08-31] MEDS: ATORVASTATIN CA 20 MG TABLET (FP) PO SCH (21:53)
[2016-08-31] MEDS: SODIUM CHLORIDE 1,000 ML IV SCH (21:53)
[2016-09-01] MEDS: METRONIDAZOLE 500 MG PREMIXED 100 ML IVPB SCH ×2 (02:56→10:12)
[2016-09-01] MEDS: GABAPENTIN 100 MG CAPSULE (FP) PO SCH ×3 (06:23→22:04)
[2016-09-01] MEDS: INSULIN SLIDING SCALE (NOVOLOG) 1 VIAL SQ SCH ×2 (06:25→17:44)
--- NOTE | 2016-09-01 08:06 | PN ---
Progress Note (short form) - Note Progress Note: SUBJECTIVE: Patient seen and examined. Chart reviewed. Comfortable. Afebrile. Scheduled for PEG today. OBJECTIVE: Vital Signs - 8 hr 09/01/16 09/01/16 06:25 08:46 Temperature 97.7 F 97.2 F L Pulse Rate 106 H 112 H Respiratory 18 20 Rate Blood Pressure 130/92 148/88 Intake & Output 08/31/16 09/01/16 09/01/16 23:59 07:59 15:59 Intake Total 150 Balance 150 Intake: Oral 150 Other: Voiding Method Incontinent Incontinent # Unmeasured Voids Void 2 3 Bowel Movement Yes Yes # Bowel Movements 2 2 Active Medications Acetaminophen (Tylenol -) 650 mg PO Q4H PRN PRN Reason: FEVER OR PAIN Atorvastatin Calcium (Lipitor -) 20 mg PO HS [facility] Last Admin: 08/31/16 21:53 Dose: 20 mg Donepezil HCl (Aricept -) 10 mg PO DAILY [facility] Last Admin: 08/31/16 09:11 Dose: 10 mg Gabapentin (Neurontin -) 100 mg PO TID [facility] Last Admin: 09/01/16 06:23 Dose: Not Given Haloperidol (Haldol Injection (Fast Acting) -) 5 mg IM Q4H PRN PRN Reason: AGITATION Last Admin: 08/31/16 01:55 Dose: 5 mg Sodium Chloride (Normal Saline -) 1,000 mls @ 100 mls/hr IV ASDIR [facility] Last Admin: 08/31/16 21:53 Dose: 100 mls/hr Metronidazole (Flagyl 500mg Premixed Ivpb -) 100 mls @ 100 mls/hr IVPB Q8H-IV [facility] Last Admin: 09/01/16 02:56 Dose: 100 mls/hr Insulin Aspart (Novolog Vial Sliding Scale -) 1 vial SQ BIDAC [facility] PRN Reason: Protocol Last Admin: 09/01/16 06:25 Dose: Not Given Pantoprazole Sodium (Protonix 40mg Ivpb (Pre-Docked)) 40 mg IVPB BID [facility] Last Admin: 09/01/16 09:20 Dose: 40 mg Tamsulosin HCl (Flomax -) 0.4 mg PO DAILY@0830 [facility] Last Admin: 09/01/16 08:46 Dose: Not Given Thiamine HCl (Vitamin B1 -) 100 mg PO DAILY [facility] Last Admin: 08/31/16 09:11 Dose: 100 mg CBC, BMP 08/31/16 06:30 08/31/16 06:30 Laboratory Results - last 24 hr 08/31/16 08/31/16 09/01/16 16:30 17:37 06:25 POC Glucometer 154 138 Stool Occult Blood Negative PHYSICAL EXAMINATION: Constitutional: Yes: No Distress Cardiovascular: Yes: Regular Rate and Rhythm Respiratory: Yes: CTA Bilaterally Gastrointestinal: Yes: Normal Bowel Sounds, Soft. No: Distention, Tenderness Edema: No Problem List - Problems (1) Dehydration Code(s): E86.0 - DEHYDRATION (2) Dementia Code(s): F03.90 - UNSPECIFIED DEMENTIA WITHOUT BEHAVIORAL DISTURBANCE Qualifiers: Dementia type: unspecified type Dementia behavioral disturbance: with behavioral disturbance Qualified Code(s): F03.91 - Unspecified dementia with behavioral disturbance; F10.97 - Alcohol use, unspecified with alcohol- induced persisting dementia (3) Diabetes Code(s): E11.9 - TYPE 2 DIABETES MELLITUS WITHOUT COMPLICATIONS (4) Diarrhea Code(s): R19.7 - DIARRHEA, UNSPECIFIED Qualifiers: Diarrhea type: unspecified type Qualified Code(s): R19.7 - Diarrhea, unspecified (5) Renal failure Code(s): N19 - UNSPECIFIED KIDNEY FAILURE (6) GI (gastrointestinal bleed) Code(s): K92.2 - GASTROINTESTINAL HEMORRHAGE, UNSPECIFIED ASSESSMENT & PLAN: - Clinically stable. - Problems as listed. - For PEG today. - Patient is afebrile/ no diarrhea. - Will discontinue Flagyl now. - Will follow. Documentation prepared by Steffanie Jules, acting as a program medical director for Luis Balderas MD.
[2016-09-01] MEDS: TAMSULOSIN HCL 0.4 MG CAP.ER.24H (FP) PO SCH (08:46)
[2016-09-01] MEDS: PANTOPRAZOLE SODIUM 40 MG/100 ML PRE-DOCKED IVPB SCH ×2 (09:20→22:04)
[2016-09-01] MEDS: DONEPEZIL HCL 10 MG TABLET (FP) PO SCH (10:21)
[2016-09-01] MEDS: THIAMINE HCL 100 MG TABLET (FP) PO SCH (10:21)
[2016-09-01] MEDS ORDERED: PROPOFOL 20 ML ONE ×3 (14:08)
[2016-09-01] MEDS: HALOPERIDOL LACTATE 5 MG/ML IM PRN (22:04)
[2016-09-01] MEDS: ATORVASTATIN CA 20 MG TABLET (FP) PO SCH (22:04)
[2016-09-01] MEDS: SODIUM CHLORIDE 1,000 ML IV SCH (23:00)
[2016-09-02] MEDS: INSULIN SLIDING SCALE (NOVOLOG) 1 VIAL SQ SCH ×2 (06:32→18:14)
[2016-09-02] MEDS: GABAPENTIN 100 MG CAPSULE (FP) PO SCH ×4 (06:34→22:52)
[2016-09-02] MEDS: DONEPEZIL HCL 10 MG TABLET (FP) PO SCH (10:26)
[2016-09-02] MEDS: THIAMINE HCL 100 MG TABLET (FP) PO SCH (10:26)
[2016-09-02] MEDS: TAMSULOSIN HCL 0.4 MG CAP.ER.24H (FP) PO SCH (10:26)
[2016-09-02] MEDS: PANTOPRAZOLE SODIUM 40 MG/100 ML PRE-DOCKED IVPB SCH ×2 (10:26→22:52)
--- NOTE | 2016-09-02 11:04 | PN ---
Progress Note (short form) - Note Progress Note: spitting out his meds confused not eating well Vital Signs - 24 hr 09/01/16 09/01/16 09/01/16 14:13 16:10 21:00 Temperature 97.9 F 98.1 F Pulse Rate 101 H 115 H Respiratory 20 20 Rate Blood Pressure 139/77 142/88 O2 Sat by Pulse 100 Oximetry (%) 09/01/16 09/02/16 22:00 06:17 Temperature 98.5 F 98.6 F Pulse Rate 107 H 102 H Respiratory 20 20 Rate Blood Pressure 160/85 202/104 O2 Sat by Pulse Oximetry (%) Current Medications Generic Name Dose Route Start Last Admin Trade Name Freq PRN Reason Stop Dose Admin Acetaminophen 650 mg 08/28/16 22:11 Tylenol - PO Q4H PRN FEVER OR PAIN Atorvastatin Calcium 20 mg 08/28/16 22:15 09/01/16 22:04 Lipitor - PO 20 mg HS [facility] Administration Donepezil HCl 10 mg 08/29/16 10:00 09/02/16 10:26 Aricept - PO 10 mg DAILY [facility] Administration Gabapentin 100 mg 08/28/16 22:15 09/02/16 07:35 Neurontin - PO Not Given TID [facility] Haloperidol 5 mg 08/28/16 22:13 09/01/16 22:04 Haldol Injection (Fast Acting) - IM 5 mg Q4H PRN Administration AGITATION Sodium Chloride 1,000 mls @ 100 mls/hr 08/28/16 22:15 09/01/16 23:00 Normal Saline - IV 100 mls/hr ASDIR [facility] Administration Insulin Aspart 1 vial 08/31/16 16:30 09/02/16 06:32 Novolog Vial Sliding Scale - SQ 3 unit BIDAC [facility] Administration Protocol Pantoprazole Sodium 40 mg 08/29/16 10:00 09/02/16 10:26 Protonix 40mg Ivpb (Pre-Docked) IVPB 40 mg BID [facility] Administration Tamsulosin HCl 0.4 mg 08/29/16 08:30 09/02/16 10:26 Flomax - PO 0.4 mg DAILY@0830 [facility] Administration Thiamine HCl 100 mg 08/29/16 10:00 09/02/16 10:26 Vitamin B1 - PO 100 mg DAILY [facility] Administration Laboratory Results - last 24 hr 09/01/16 09/02/16 17:41 06:30 POC Glucometer 122 166 S1 S2 RRR Lungs clear Abd -soft, NT No edema PLAN Apparently son had signed consent for peg tube placement but again could not be reached to get anesthesia consent which is why the procedure is delayed. Spoke with nurse continue with iv fluids , change fluids OOB continue meds Problem List - Problems (1) Dehydration Code(s): E86.0 - DEHYDRATION (2) Dementia Code(s): F03.90 - UNSPECIFIED DEMENTIA WITHOUT BEHAVIORAL DISTURBANCE Qualifiers: Dementia type: unspecified type Dementia behavioral disturbance: with behavioral disturbance Qualified Code(s): F03.91 - Unspecified dementia with behavioral disturbance; F10.97 - Alcohol use, unspecified with alcohol- induced persisting dementia (3) Diabetes Code(s): E11.9 - TYPE 2 DIABETES MELLITUS WITHOUT COMPLICATIONS (4) Diarrhea Code(s): R19.7 - DIARRHEA, UNSPECIFIED Qualifiers: Diarrhea type: unspecified type Qualified Code(s): R19.7 - Diarrhea, unspecified (5) Renal failure Code(s): N19 - UNSPECIFIED KIDNEY FAILURE (6) GI (gastrointestinal bleed) Code(s): K92.2 - GASTROINTESTINAL HEMORRHAGE, UNSPECIFIED
--- NOTE | 2016-09-02 14:44 | PN ---
Progress Note (short form) - Note Progress Note: Patient brought for PEG but unable to perform procedure due to no anesthesia consent. Unable to contact family to obtain Will obtain over weekend and do procedure Tues AM
[2016-09-02] MEDS: amLODIPine BESYLATE 5 MG TABLET (FP) PO SCH (18:28)
[2016-09-02] MEDS: ATORVASTATIN CA 20 MG TABLET (FP) PO SCH (22:52)
[2016-09-03] MEDS: GABAPENTIN 100 MG CAPSULE (FP) PO SCH ×3 (06:40→22:15)
[2016-09-03] MEDS: INSULIN SLIDING SCALE (NOVOLOG) 1 VIAL SQ SCH ×2 (06:40→17:50)
[2016-09-03] MEDS: SODIUM CHLORIDE 1,000 ML IV SCH (07:53)
--- NOTE | 2016-09-03 09:03 | PN ---
Progress Note (short form) - Note Progress Note: confused not eating well Vital Signs - 24 hr 09/02/16 09/03/16 09/03/16 22:00 08:01 09:00 Temperature 98.2 F 98.4 F Pulse Rate 95 H 104 H 99 H Respiratory 20 20 18 Rate Blood Pressure 156/85 166/92 170/90 O2 Sat by Pulse 98 Oximetry (%) 09/03/16 09/03/16 09/03/16 14:26 17:00 17:14 Temperature 98.9 F Pulse Rate 109 H 115 H 105 H Respiratory 16 18 18 Rate Blood Pressure 159/101 80/45 115/60 O2 Sat by Pulse Oximetry (%) Current Medications Generic Name Dose Route Start Last Admin Trade Name Freq PRN Reason Stop Dose Admin Acetaminophen 650 mg 08/28/16 22:11 Tylenol - PO Q4H PRN FEVER OR PAIN Amlodipine Besylate 5 mg 09/02/16 17:15 09/03/16 10:47 Norvasc - PO 5 mg DAILY KATHRYN Administration Atorvastatin Calcium 20 mg 08/28/16 22:15 09/02/16 22:52 Lipitor - PO 20 mg HS KATHRYN Administration Donepezil HCl 10 mg 08/29/16 10:00 09/03/16 10:48 Aricept - PO 10 mg DAILY KATHRYN Administration Gabapentin 100 mg 08/28/16 22:15 09/03/16 15:53 Neurontin - PO Not Given TID KATHRYN Haloperidol 5 mg 08/28/16 22:13 09/03/16 10:47 Haldol Injection (Fast Acting) - IM 5 mg Q4H PRN Administration AGITATION Sodium Chloride 1,000 mls @ 100 mls/hr 08/28/16 22:15 09/03/16 07:53 Normal Saline - IV Not Given ASDIR KATHRYN Insulin Aspart 1 vial 08/31/16 16:30 09/03/16 17:50 Novolog Vial Sliding Scale - SQ Not Given BIDAC [facility] Protocol Pantoprazole Sodium 40 mg 08/29/16 10:00 09/03/16 10:48 Protonix 40mg Ivpb (Pre-Docked) IVPB 40 mg BID KATHRYN Administration Tamsulosin HCl 0.4 mg 08/29/16 08:30 09/03/16 10:47 Flomax - PO 0.4 mg DAILY@0830 KATHRYN Administration Thiamine HCl 100 mg 08/29/16 10:00 09/03/16 10:48 Vitamin B1 - PO 100 mg DAILY KATHRYN Administration Laboratory Results - last 24 hr 09/03/16 16:46 POC Glucometer 270 S1 S2 RRR Lungs clear Abd -soft, NT No edema PLAN Apparently son had signed consent for peg tube placement but again could not be reached to get anesthesia consent which is why the procedure is delayed. Spoke with nurse continue with iv fluids , change fluids OOB add Amlodipine for BP control continue meds Problem List - Problems (1) Dehydration Code(s): E86.0 - DEHYDRATION (2) Dementia Code(s): F03.90 - UNSPECIFIED DEMENTIA WITHOUT BEHAVIORAL DISTURBANCE Qualifiers: Dementia type: unspecified type Dementia behavioral disturbance: with behavioral disturbance Qualified Code(s): F03.91 - Unspecified dementia with behavioral disturbance; F10.97 - Alcohol use, unspecified with alcohol- induced persisting dementia (3) Diabetes Code(s): E11.9 - TYPE 2 DIABETES MELLITUS WITHOUT COMPLICATIONS (4) Diarrhea Code(s): R19.7 - DIARRHEA, UNSPECIFIED Qualifiers: Diarrhea type: unspecified type Qualified Code(s): R19.7 - Diarrhea, unspecified (5) Renal failure Code(s): N19 - UNSPECIFIED KIDNEY FAILURE (6) GI (gastrointestinal bleed) Code(s): K92.2 - GASTROINTESTINAL HEMORRHAGE, UNSPECIFIED
[2016-09-03] MEDS: TAMSULOSIN HCL 0.4 MG CAP.ER.24H (FP) PO SCH (10:47)
[2016-09-03] MEDS: amLODIPine BESYLATE 5 MG TABLET (FP) PO SCH (10:47)
[2016-09-03] MEDS: HALOPERIDOL LACTATE 5 MG/ML IM PRN (10:47)
[2016-09-03] MEDS: PANTOPRAZOLE SODIUM 40 MG/100 ML PRE-DOCKED IVPB SCH ×2 (10:48→22:17)
[2016-09-03] MEDS: DONEPEZIL HCL 10 MG TABLET (FP) PO SCH (10:48)
[2016-09-03] MEDS: THIAMINE HCL 100 MG TABLET (FP) PO SCH (10:48)
--- NOTE | 2016-09-03 15:16 | PN ---
Progress Note (short form) - Note Progress Note: Patient brought for PEG but unable to perform procedure due to no anesthesia consent. Family contacted and states they will sign but don't Will continue to try to obtain over weekend and do procedure Tues AM
[2016-09-03] MEDS: ATORVASTATIN CA 20 MG TABLET (FP) PO SCH (22:15)
[2016-09-04] MEDS: GABAPENTIN 100 MG CAPSULE (FP) PO SCH ×3 (06:28→22:00)
[2016-09-04] MEDS: INSULIN SLIDING SCALE (NOVOLOG) 1 VIAL SQ SCH ×2 (06:28→17:25)
[2016-09-04] MEDS ORDERED: DONEPEZIL HCL 10 MG TABLET (FP) PO SCH (07:38)
[2016-09-04 08:26] LABS: ALBUMIN 2.5 g/dl (3.4-5.0); ALK PHOS 67 U/L (45-117); ANION GAP 14 (8-16); BILIRUBIN,TOTAL 0.6 mg/dL (0.2-1.0); CO2 25 mmol/L (21-32); COCKROFT - GAULT 67.86; CREATININE 0.8 mg/dL (0.7-1.3); GLUCOSE,RANDOM 185 mg/dL (74-106); SGOT/AST 31 U/L (15-37); SGPT/ALT 23 U/L (12-78); TOT PROT 5.5 g/dl (6.4-8.2)
--- NOTE | 2016-09-04 08:34 | PN ---
Progress Note (short form) - Note Progress Note: Subjective Patient seen and examined. Chart reviewed. Sitting in chair. Calm. Events noted. PEG placement postponed due to consent issues. Objective Last Vital Signs Temp Pulse Resp BP Pulse Ox 98.8 F 96 H 20 160/94 98 09/04/16 06:00 09/04/16 06:00 09/04/16 06:00 09/04/16 06:00 09/03/16 21:00 CBC, BMP 08/31/16 06:30 09/04/16 07:30 Laboratory Results - last 24 hr 09/03/16 09/04/16 16:46 07:30 Sodium 139 Potassium 3.2 L D Chloride 100 Carbon Dioxide 25 D Anion Gap 14 BUN 4 L D Creatinine 0.8 Creat Clearance w eGFR > 60 POC Glucometer 270 Random Glucose 185 H D Calcium 9.0 Total Bilirubin 0.6 AST 31 D ALT 23 D Alkaline Phosphatase 67 Total Protein 5.5 L Albumin 2.5 L Physical Exam Constitutional: Yes: No Distress Cardiovascular: Yes: Regular Rate and Rhythm Respiratory: Yes: CTA Bilaterally Gastrointestinal: Yes: Normal Bowel Sounds, Soft. No: Distention, Tenderness Edema: No Assessment and Plan Advanced Dementia continue present care. Fix electrolytes. Likely peg placement tomorrow. Will follow. Documentation prepared by Cleo Charles, acting as a medical coding manager for Luis Balderas MD. Problem List - Problems (1) Dehydration Code(s): E86.0 - DEHYDRATION (2) Dementia Code(s): F03.90 - UNSPECIFIED DEMENTIA WITHOUT BEHAVIORAL DISTURBANCE Qualifiers: Dementia type: unspecified type Dementia behavioral disturbance: with behavioral disturbance Qualified Code(s): F03.91 - Unspecified dementia with behavioral disturbance; F10.97 - Alcohol use, unspecified with alcohol- induced persisting dementia (3) Diarrhea Code(s): R19.7 - DIARRHEA, UNSPECIFIED Qualifiers: Diarrhea type: unspecified type Qualified Code(s): R19.7 - Diarrhea, unspecified (4) Renal failure Code(s): N19 - UNSPECIFIED KIDNEY FAILURE (5) Diabetes Code(s): E11.9 - TYPE 2 DIABETES MELLITUS WITHOUT COMPLICATIONS
[2016-09-04] MEDS ORDERED: POTASSIUM CHLORIDE TABS 20 MEQ TABLET.ER (FP) PO ONE (08:45)
[2016-09-04 09:50] LABS: BASOPHIL 0.6 % (0-2.0); EOSINOPHIL 0.6 % (0-4.5); MCHC 32.4 g/dl (32.0-35.9); MEAN CELL VOLUME 80.1 fl (80-96); MEAN PLT VOLUME 7.9 fl (7.5-11.1); NEUTROPHILS 64.4 % (42.8-82.8); PLATELET COUNT 251 K/MM3 (134-434); RDW 15.6 % (11.9-15.9); WHITE BLOOD COUNT 6.4 K/mm3 (4.0-10.0)
[2016-09-04] MEDS: SODIUM CHLORIDE 1,000 ML IV SCH (10:10)
[2016-09-04] MEDS: THIAMINE HCL 100 MG TABLET (FP) PO SCH (10:11)
[2016-09-04] MEDS: TAMSULOSIN HCL 0.4 MG CAP.ER.24H (FP) PO SCH (10:11)
[2016-09-04] MEDS: amLODIPine BESYLATE 5 MG TABLET (FP) PO SCH (10:11)
[2016-09-04] MEDS: PANTOPRAZOLE SODIUM 40 MG/100 ML PRE-DOCKED IVPB SCH ×2 (10:12→22:55)
[2016-09-04 20:37] LABS: INR 1.13 (0.82-1.09); PROTHROMBIN TIME (PATIENT) 12.5 SEC (9.98-11.88)
[2016-09-04] MEDS: ATORVASTATIN CA 20 MG TABLET (FP) PO SCH (22:00)
[2016-09-05] MEDS: GABAPENTIN 100 MG CAPSULE (FP) PO SCH ×3 (06:01→22:56)
[2016-09-05] MEDS: INSULIN SLIDING SCALE (NOVOLOG) 1 VIAL SQ SCH ×2 (07:00→18:17)
[2016-09-05 08:16] LABS: BASOPHIL 0.5 % (0-2.0); EOSINOPHIL 0.8 % (0-4.5); MCHC 32.2 g/dl (32.0-35.9); MEAN PLT VOLUME 7.9 fl (7.5-11.1); NEUTROPHILS 64.9 % (42.8-82.8); PLATELET COUNT 241 K/MM3 (134-434); WHITE BLOOD COUNT 6.8 K/mm3 (4.0-10.0)
[2016-09-05 08:38] LABS: ALBUMIN 2.5 g/dl (3.4-5.0); ALK PHOS 68 U/L (45-117); ANION GAP 11 (8-16); BILIRUBIN,TOTAL 0.6 mg/dL (0.2-1.0); CALCIUM 8.7 mg/dL (8.5-10.1); CO2 29 mmol/L (21-32); COCKROFT - GAULT 67.86; CREATININE 0.8 mg/dL (0.7-1.3); GLUCOSE,RANDOM 103 mg/dL (74-106); SGOT/AST 40 U/L (15-37); SGPT/ALT 23 U/L (12-78); TOT PROT 5.5 g/dl (6.4-8.2)
[2016-09-05] MEDS ORDERED: ceFAZolin SODIUM 1 GM VIAL ONE (10:20)
[2016-09-05] MEDS ORDERED: SODIUM CHLORIDE 1,000 ML IV STA (11:39)
--- NOTE | 2016-09-05 11:45 | PN ---
Progress Note, Physician Chief Complaint: Events noted pt arrested in recovery room- Spoke with Dr Paula- he placed peg today at 10:20 - and completed procedure at 10:30 am- pt was transferred to recovery room and desaturated and became bradycardic.He received Atropine and Epinephrine- did not become asystole- intubated and transferred to ICU. - Current Medication List Current Medications: Active Medications Acetaminophen (Tylenol -) 650 mg PO Q4H PRN PRN Reason: FEVER OR PAIN Amlodipine Besylate (Norvasc -) 5 mg PO DAILY [facility] Last Admin: 09/04/16 10:11 Dose: 5 mg Atorvastatin Calcium (Lipitor -) 20 mg PO HS [facility] Last Admin: 09/04/16 22:00 Dose: Not Given Donepezil HCl (Aricept -) 10 mg PO HS [facility] Last Admin: 09/04/16 22:00 Dose: Not Given Gabapentin (Neurontin -) 100 mg PO TID [facility] Last Admin: 09/05/16 06:01 Dose: Not Given Haloperidol (Haldol Injection (Fast Acting) -) 5 mg IM Q4H PRN PRN Reason: AGITATION Last Admin: 09/03/16 10:47 Dose: 5 mg Sodium Chloride (Normal Saline -) 1,000 mls @ 100 mls/hr IV ASDIR [facility] Last Admin: 09/04/16 10:10 Dose: 100 mls/hr Sodium Chloride (Normal Saline -) 1,000 mls @ 1,000 mls/hr IV ASDIR [facility] Stop: 09/05/16 12:38 Insulin Aspart (Novolog Vial Sliding Scale -) 1 vial SQ BIDAC [facility] PRN Reason: Protocol Last Admin: 09/05/16 07:00 Dose: Not Given Pantoprazole Sodium (Protonix 40mg Ivpb (Pre-Docked)) 40 mg IVPB BID [facility] Last Admin: 09/04/16 22:55 Dose: 40 mg Tamsulosin HCl (Flomax -) 0.4 mg PO DAILY@0830 [facility] Last Admin: 09/04/16 10:11 Dose: 0.4 mg Thiamine HCl (Vitamin B1 -) 100 mg PO DAILY [facility] Last Admin: 09/04/16 10:11 Dose: 100 mg - Objective Vital Signs: Vital Signs Temperature 98.6 F 09/05/16 06:23 Pulse Rate 94 H 09/05/16 06:23 Respiratory Rate 20 09/05/16 06:23 Blood Pressure 185/98 09/05/16 06:23 O2 Sat by Pulse Oximetry (%) 100 09/04/16 09:00 Labs: CBC, BMP 09/05/16 07:35 09/05/16 07:35 INR, PTT INR 1.13 (0.82-1.09) 09/04/16 20:20 Problem List - Problems (1) Dehydration Code(s): E86.0 - DEHYDRATION (2) Dementia Code(s): F03.90 - UNSPECIFIED DEMENTIA WITHOUT BEHAVIORAL DISTURBANCE Qualifiers: Dementia type: unspecified type Dementia behavioral disturbance: with behavioral disturbance Qualified Code(s): F03.91 - Unspecified dementia with behavioral disturbance; F10.97 - Alcohol use, unspecified with alcohol- induced persisting dementia (3) Diabetes Code(s): E11.9 - TYPE 2 DIABETES MELLITUS WITHOUT COMPLICATIONS (4) Diarrhea Code(s): R19.7 - DIARRHEA, UNSPECIFIED Qualifiers: Diarrhea type: unspecified type Qualified Code(s): R19.7 - Diarrhea, unspecified (5) Renal failure Code(s): N19 - UNSPECIFIED KIDNEY FAILURE (6) GI (gastrointestinal bleed) Code(s): K92.2 - GASTROINTESTINAL HEMORRHAGE, UNSPECIFIED Assessment/Plan PLAN on IV fluids monitor urine output, place granados pt hypotensive Iv antibiotics possible aspiration , leading to respiratory failure ICU monitoring vent management spoke with resident and ICU staff
--- NOTE | 2016-09-05 12:48 | PN ---
Progress Note (short form) - Note Progress Note: The patient underwent PEG insertion uneventful. His blood pressure, O2 saturation and pulse rate were stable during the procedure. He was transferred to the recovery room with stable vital signs. While in the recovery room the patient was noted to be develop bradycardia. He received atropine 1mg and Epinephrine. Dc redman was called. He never lost the pulse. He was hooked to AED which did not worm picker any abnormal rhythm. He was intubated to secure airway. His son Alcon was in the waiting room. He was informed of the situation. He was transferred to ICU for further evaluation and management. Cardiac enzymes were ordered. ICU attending was present during the code. Problem List - Problems (1) Failure to thrive Code(s): [id number] - (2) Rectal bleeding Code(s): K62.5 - HEMORRHAGE OF ANUS AND RECTUM
--- NOTE | 2016-09-05 12:55 | PN ---
Teaching Attending Note Name of Resident: Segundo Worthy ATTENDING PHYSICIAN STATEMENT I saw and evaluated the patient. I reviewed the resident's note and discussed the case with the resident. I agree with the resident's findings and plan as documented. SUBJECTIVE: Pt seen and examined in the ICU. Briefly, 80yo male with h/o HTN, DM, hyperlipidemia, dementia who initially presented on 08/27 for diarrhea and fall. Noted to be in acute renal failure from dehydration. PEG placed today due to poor PO intake, no reported complications. During recovery, pt became bradycardic, hypoxic with agonal breathing. ACLS initiated, given epinephrine and atropine, intubated by anesthesia. Currently in the ICU, intubated and sedated, unable to provide further history at this time. OBJECTIVE: Last Vital Signs Temp Pulse Resp BP Pulse Ox 98.6 F 96 H 14 185/98 96 09/05/16 06:23 09/05/16 11:20 09/05/16 11:20 09/05/16 06:23 09/05/16 11:20 Intake & Output 09/02/16 09/03/16 09/04/16 09/05/16 23:59 23:59 23:59 23:59 Intake Total 50 2400 3200 0 Output Total 50 Balance 50 2400 3200 -50 Gen: intubated, sedated Heart: RRR Lung: decreased breath sounds at the bases Abd: soft, PEG in place Ext: no edema CBC, BMP 09/05/16 07:35 09/05/16 07:35 Active Medications Acetaminophen (Tylenol -) 650 mg PO Q4H PRN PRN Reason: FEVER OR PAIN Amlodipine Besylate (Norvasc -) 5 mg PO DAILY [facility] Last Admin: 09/04/16 10:11 Dose: 5 mg Atorvastatin Calcium (Lipitor -) 20 mg PO [facility] Last Admin: 09/04/16 22:00 Dose: Not Given Chlorhexidine Gluconate (Hibiclens For Decolonization -) 1 applic TP [facility] Donepezil HCl (Aricept -) 10 mg PO [facility] Last Admin: 09/04/16 22:00 Dose: Not Given Gabapentin (Neurontin -) 100 mg PO TID [facility] Last Admin: 09/05/16 06:01 Dose: Not Given Haloperidol (Haldol Injection (Fast Acting) -) 5 mg IM Q4H PRN PRN Reason: AGITATION Last Admin: 09/03/16 10:47 Dose: 5 mg Sodium Chloride (Normal Saline -) 1,000 mls @ 100 mls/hr IV ASDIR [facility] Last Admin: 09/04/16 10:10 Dose: 100 mls/hr Insulin Aspart (Novolog Vial Sliding Scale -) 1 vial SQ BIDAC [facility] PRN Reason: Protocol Last Admin: 09/05/16 07:00 Dose: Not Given Mupirocin (Bactroban Ointment (For Decolonization) -) 1 applic NS BID [facility] Stop: 09/10/16 21:59 Pantoprazole Sodium (Protonix 40mg Ivpb (Pre-Docked)) 40 mg IVPB BID [facility] Last Admin: 09/04/16 22:55 Dose: 40 mg Ranitidine HCl (Zantac Oral Solution -) 150 mg PO BID [facility] Tamsulosin HCl (Flomax -) 0.4 mg PO DAILY@0830 [facility] Last Admin: 09/04/16 10:11 Dose: 0.4 mg Thiamine HCl (Vitamin B1 -) 100 mg PO DAILY [facility] Last Admin: 09/04/16 10:11 Dose: 100 mg ASSESSMENT AND PLAN: Acute Respiratory Failure Bradycardia s/p PEG placement HTN DM Dementia - continue vent support for now - minimize sedation to assess mental status - ABG - IVF - replete lytes, keep K >4, Mg>2 - taper FiO2 to keep SPo2 >90% - start spontaneous breathing trials when mental status improved - DVT/GI prophylaxis - ICU monitoring critical care time spent in reviewing chart, evaluating patient and formulating plan 36 min
--- NOTE | 2016-09-05 13:00 | CONSULT ---
Consultation: REQUESTING PROVIDER: CONSULT REQUEST: We have been asked to medically evaluate this patient for ( specify). HISTORY OF PRESENT ILLNESS: Pt seen and examined in the ICU. 80yo male with h/o HTN, DM, hyperlipidemia, dementia who presented on 08/27 for diarrhea and fall. Found to have acute renal failure from dehydration from diarrhoea( due to laxative overuse). Patient got Iv fluid and his selam improved. Patient has poor oral intake so PEG placed today by Dr Lord. In recovery room , pt became bradycardic, hypoxic with agonal breathing. Code 99 was called, Patient got atropine and epinephrine and was intubated by anathesiologist. Patient was send to ICU for further management. talked to his family patient base line is dementia and altered mental status. In ICU patient started on ventilator support. Patient blood pressure was low so IV fluid Ns was given. cbc, bmp, cardiac profile, abg, ecg, trop i, cxr echo were ordered Patient maintaining a saturation of 100% on fio2 of 100. ----> fio2 decreased to 70. will keep his spo2 over [address] side REVIEW OF SYSTEMS: unable to obtain patient intubated PHYSICAL EXAMINATION Vital Signs - 24 hr 09/04/16 09/04/16 09/05/16 14:37 17:20 06:23 Temperature 98.7 F 98.0 F 98.6 F Pulse Rate 112 H 94 H Respiratory 18 20 20 Rate Blood Pressure 119/75 133/76 185/98 O2 Sat by Pulse Oximetry (%) 09/05/16 11:20 Temperature Pulse Rate 96 H Respiratory 14 Rate Blood Pressure O2 Sat by Pulse 96 Oximetry (%) GENERAL: intubated EYES: opening his eyes EARS, NOSE, THROAT: dry mucous membranes. LUNGS: Breath sounds equal, clear to auscultation bilaterally. decrease breath sound at base HEART: s1s2 normal. ABDOMEN: Soft, not distended, normoactive bowel sounds, peg tube in situ. UPPER EXTREMITIES: 2+ pulses, warm, well-perfused. No cyanosis. No peripheral edema. LOWER EXTREMITIES: well-perfused. No calf tenderness. No peripheral edema. NEUROLOGICAL: unobtainable SKIN: Warm, dry, Laboratory Results - last 24 hr 09/04/16 09/04/16 09/05/16 17:20 20:20 07:35 WBC 6.8 RBC 5.50 Hgb 14.3 Hct 44.5 MCV 81.0 MCHC 32.2 RDW 16.0 H Plt Count 241 MPV 7.9 Neutrophils % 64.9 Lymphocytes % 26.1 Monocytes % 7.7 Eosinophils % 0.8 Basophils % 0.5 INR 1.13 Sodium Potassium Chloride Carbon Dioxide Anion Gap BUN Creatinine Creat Clearance w eGFR POC Glucometer 346 Random Glucose Calcium Total Bilirubin AST ALT Alkaline Phosphatase Total Protein Albumin 09/05/16 09/05/16 07:35 10:56 WBC RBC Hgb Hct MCV MCHC RDW Plt Count MPV Neutrophils % Lymphocytes % Monocytes % Eosinophils % Basophils % INR Sodium 140 Potassium 3.1 L Chloride 100 Carbon Dioxide 29 Anion Gap 11 BUN 5 L D Creatinine 0.8 Creat Clearance w eGFR > 60 POC Glucometer 109 Random Glucose 103 D Calcium 8.7 Total Bilirubin 0.6 AST 40 H D ALT 23 Alkaline Phosphatase 68 Total Protein 5.5 L Albumin 2.5 L Active Medications Generic Name Dose Route Start Last Admin Trade Name Freq PRN Reason Stop Dose Admin Acetaminophen 650 mg 08/28/16 22:11 Tylenol - PO Q4H PRN FEVER OR PAIN Amlodipine Besylate 5 mg 09/02/16 17:15 09/04/16 10:11 Norvasc - PO 5 mg DAILY KATHRYN Administration Atorvastatin Calcium 20 mg 08/28/16 22:15 09/04/16 22:00 Lipitor - PO Not Given HS [facility] Chlorhexidine Gluconate 1 applic 09/05/16 22:00 Hibiclens For Decolonization - TP HS [facility] Donepezil HCl 10 mg 09/04/16 07:38 09/04/16 22:00 Aricept - PO Not Given HS [facility] Gabapentin 100 mg 08/28/16 22:15 09/05/16 06:01 Neurontin - PO Not Given TID KATHRYN Haloperidol 5 mg 08/28/16 22:13 09/03/16 10:47 Haldol Injection (Fast Acting) - IM 5 mg Q4H PRN Administration AGITATION Sodium Chloride 1,000 mls @ 100 mls/hr 08/28/16 22:15 09/04/16 10:10 Normal Saline - IV 100 mls/hr ASDIR KATHRYN Administration Insulin Aspart 1 vial 08/31/16 16:30 09/05/16 07:00 Novolog Vial Sliding Scale - SQ Not Given BIDAC [facility] Protocol Mupirocin 1 applic 09/05/16 22:00 Bactroban Ointment (For Decolonization) - NS 09/10/16 21:59 BID [facility] Pantoprazole Sodium 40 mg 08/29/16 10:00 09/04/16 22:55 Protonix 40mg Ivpb (Pre-Docked) IVPB 40 mg BID KATHRYN Administration Ranitidine HCl 150 mg 09/06/16 22:00 Zantac Oral Solution - PO BID KATHRYN Tamsulosin HCl 0.4 mg 08/29/16 08:30 09/04/16 10:11 Flomax - PO 0.4 mg DAILY@0830 KAT[facility]YN Administration Thiamine HCl 100 mg 08/29/16 10:00 09/04/16 10:11 Vitamin B1 - PO 100 mg DAILY KATHRYN Administration ASSESSMENT/PLAN: Acute Respiratory Failure continue with ventilator support keep spo2.90 abg reviewed cxr reviewed monitor vitals monitor intake/ output neb duoneb taper fio2 bradycardia resolved got atropine follow trop i follow echo ekg elevated trop i could be stress induced trend trop i s/p PEG placement monitor peg site gastro on case HTN on norvasc DM blood glucose monitoring insulin sliding scale Dementia donepezil electrolyte abnormality hypomagnesemia and hypokalemia given mg 2gm and kcl iv 30meq will keep mg > 2 and k > 4 fluid: IV NS electrolyte: repeat in evening nutrition: discussed with dr lord, we can use peg dvt pro: scd b/l gi pro zantac bid dispo: admit in icu Dispo: We will continue to follow the patient. Thank you for this consultative opportunity. Visit type - Emergency Visit Emergency Visit: Yes ED Registration Date: 08/29/16 Care time: The patient presented to the Emergency Department on the above date and was hospitalized for further evaluation of their emergent condition. - New Patient This patient is new to me today: Yes Date on this admission: 09/05/16 - Critical Care Critical Care patient: Yes Total Critical Care Time (in minutes): 45 Critical Care Statement: The care of this patient involved high complexity decision making to prevent further life threatening deterioration of the patient 's condition and/or to evalute & treat vital organ system(s) failure or risk of failure.
[2016-09-05] MEDS ORDERED: HALOPERIDOL LACTATE 5 MG/ML IM PRN (13:19)
[2016-09-05] MEDS ORDERED: ACETAMINOPHEN 325 MG TABLET (FP) PO PRN (13:19)
[2016-09-05] MEDS ORDERED: SODIUM CHLORIDE 1,000 ML IV SCH ×2 (13:19→16:38)
[2016-09-05 13:37] LABS: ARTERIAL BLOOD GAS BASE EXCESS -1.9 meq/l (-2-2); ARTERIAL BLOOD GAS HCO3 20.4 meq/L (22-26)
[2016-09-05 13:38] LABS: ALLENS TEST POSITIVE; ART PUNCT SITE RIGHT RADIAL; ARTERIAL BLOOD GAS pH 7.46 (7.35-7.45); LPM/O2% 70%; MECH. VENT. YES; PT. ON O2? YES; TYPE OF O2 VENTILATOR; VENT RATE 14; VT/PRESS 450
[2016-09-05 13:38] LABS: BASOPHIL 0.5 % (0-2.0); EOSINOPHIL 0.2 % (0-4.5); MCH 26.3 pg (25.7-33.7); MCHC 32.4 g/dl (32.0-35.9); MEAN CELL VOLUME 81.2 fl (80-96); MEAN PLT VOLUME 7.9 fl (7.5-11.1); NEUTROPHILS 81.2 % (42.8-82.8); PLATELET COUNT 226 K/MM3 (134-434); RDW 16.2 % (11.9-15.9); WHITE BLOOD COUNT 8.5 K/mm3 (4.0-10.0)
[2016-09-05 14:10] LABS: CALCIUM 8.8 mg/dL (8.5-10.1); MAGNESIUM 1.2 mg/dL (1.8-2.4); PHOSPHOROUS 2.5 mg/dL (2.5-4.9)
[2016-09-05 14:11] LABS: COCKROFT - GAULT 56.9
[2016-09-05 14:32] LABS: TROPONIN I 0.13 ng/ml (0.00-0.05)
[2016-09-05] MEDS ORDERED: MAGNESIUM SULF 50% (8.12 MEQ/2 ML-1 GM VIAL) IVPB ONE (14:36)
[2016-09-05] MEDS ORDERED: ALBUTEROL SO4 2.5/IPRATROPIUM 0.5 INH SOL 3 ML VIAL.NEB. NEB PRN (15:27)
[2016-09-05] MEDS ORDERED: ATROPINE SULFATE 1 MG/10 ML DISP.SYRIN ONE (15:36)
[2016-09-05] MEDS ORDERED: INSULIN SLIDING SCALE (NOVOLOG) 1 VIAL SQ SCH (16:30)
[2016-09-05] MEDS: amLODIPine BESYLATE 5 MG TABLET (FP) PO SCH (16:35)
[2016-09-05] MEDS: TAMSULOSIN HCL 0.4 MG CAP.ER.24H (FP) PO SCH (16:35)
[2016-09-05] MEDS: PANTOPRAZOLE SODIUM 40 MG/100 ML PRE-DOCKED IVPB SCH ×2 (16:36→21:34)
[2016-09-05] MEDS: THIAMINE HCL 100 MG TABLET (FP) PO SCH (16:36)
[2016-09-05] MEDS ORDERED: MAGNESIUM SULF 50% (8.12 MEQ/2 ML-1 GM VIAL) ONE (17:08)
[2016-09-05] MEDS: KCL 10 MEQ IVPB 100 ML IVPB SCH ×4 (18:17→23:26)
[2016-09-05] MEDS ORDERED: cefTRIAXone 1 GM/50 ML BAG (PRE-DOCKED) IVPB ONE (20:15)
[2016-09-05] MEDS: MUPIROCIN 2% TOPICAL OINTMENT FOR DECOLONIZATION NS SCH (21:26)
--- NOTE | 2016-09-05 22:53 | EKG ---
Test Reason : Blood Pressure : / mmHG Vent. Rate : 122 BPM Atrial Rate : 122 BPM P-R Int : 128 ms QRS Dur : 080 ms QT Int : 342 ms P-R-T Axes : 040 250 -15 degrees QTc Int : 487 ms SINUS TACHYCARDIA NONSPECIFIC ST AND T WAVE ABNORMALITY ABNORMAL ECG WHEN COMPARED WITH ECG OF 27-AUG-2016 21:13, Confirmed by NUNU NY MD ([id number]) on 09/05/2016 10:53:13 PM Referred By: JASMEET OTERO Confirmed By:NUNU NY MD
[2016-09-05] MEDS: CHLORHEXIDINE GLUCONATE 4% CLEANSER FOR DECOLONIZATION TP SCH (22:56)
[2016-09-05] MEDS: ATORVASTATIN CA 20 MG TABLET (FP) PO SCH (22:56)
[2016-09-05] MEDS: DONEPEZIL HCL 10 MG TABLET (FP) PO SCH (22:56)
[2016-09-05 23:04] LABS: CALCIUM 8.4 mg/dL (8.5-10.1); COCKROFT - GAULT 63.22; CREATININE 0.9 mg/dL (0.7-1.3)
[2016-09-05 23:20] LABS: MAGNESIUM 1.7 mg/dL (1.8-2.4)
[2016-09-06] MEDS: KCL 10 MEQ IVPB 100 ML IVPB SCH ×7 (00:33→21:33)
[2016-09-06] MEDS: INSULIN SLIDING SCALE (NOVOLOG) 1 VIAL SQ SCH ×4 (00:41→17:27)
[2016-09-06] MEDS ORDERED: MAGNESIUM SULF 50% (8.12 MEQ/2 ML-1 GM VIAL) IVPB ONE ×2 (01:47→21:30)
[2016-09-06] MEDS ORDERED: SODIUM PHOSPHATE - 15 MM in DEXTROSE 5%-WATER - 250 ML IVPB ONE (02:00)
[2016-09-06] MEDS ORDERED: MAGNESIUM SULF 50% (8.12 MEQ/2 ML-1 GM VIAL) ONE ×2 (02:09→21:22)
[2016-09-06 02:39] LABS: CALCIUM 8.2 mg/dL (8.5-10.1); COCKROFT - GAULT 71.13; CREATININE 0.8 mg/dL (0.7-1.3)
[2016-09-06 03:00] LABS: TROPONIN I 1.02 ng/ml (0.00-0.05)
[2016-09-06] MEDS: GABAPENTIN 100 MG CAPSULE (FP) PO SCH ×3 (05:34→21:34)
[2016-09-06 06:10] LABS: BASOPHIL 0.3 % (0-2.0); EOSINOPHIL 0.3 % (0-4.5); MCH 26.2 pg (25.7-33.7); MCHC 32.7 g/dl (32.0-35.9); MEAN PLT VOLUME 8.3 fl (7.5-11.1); NEUTROPHILS 76.7 % (42.8-82.8); PLATELET COUNT 213 K/MM3 (134-434); RDW 16.2 % (11.9-15.9); WHITE BLOOD COUNT 9.6 K/mm3 (4.0-10.0)
[2016-09-06 06:35] LABS: ALBUMIN 2.1 g/dl (3.4-5.0); ALK PHOS 59 U/L (45-117); ANION GAP 13 (8-16); BILIRUBIN,TOTAL 0.6 mg/dL (0.2-1.0); CALCIUM 8.3 mg/dL (8.5-10.1); CO2 24 mmol/L (21-32); COCKROFT - GAULT 80.47; CREATININE 0.7 mg/dL (0.7-1.3); GLUCOSE,RANDOM 133 mg/dL (74-106); MAGNESIUM 2.1 mg/dL (1.8-2.4); PHOSPHOROUS 2.5 mg/dL (2.5-4.9); SGOT/AST 41 U/L (15-37); SGPT/ALT 25 U/L (12-78); TOT PROT 4.5 g/dl (6.4-8.2)
[2016-09-06] MEDS ORDERED: POTASSIUM CHLORIDE ORAL LIQUID 20 MEQ/15 ML PO ONE ×2 (07:39→12:00)
[2016-09-06 07:50] LABS: ARTERIAL BLOOD GAS HCO3 24.6 meq/L (22-26); ARTERIAL BLOOD GAS pH 7.49 (7.35-7.45)
[2016-09-06 07:52] LABS: ALLENS TEST POSITIVE; ART PUNCT SITE RIGHT RADIAL; LPM/O2% 50%; MECH. VENT. YES; PT. ON O2? YES; TYPE OF O2 VENT; VENT RATE 14; VT/PRESS 450
[2016-09-06] MEDS: TAMSULOSIN HCL 0.4 MG CAP.ER.24H (FP) PO SCH (08:35)
[2016-09-06] MEDS: MUPIROCIN 2% TOPICAL OINTMENT FOR DECOLONIZATION NS SCH ×2 (09:50→21:34)
[2016-09-06] MEDS: amLODIPine BESYLATE 5 MG TABLET (FP) PO SCH (09:51)
[2016-09-06] MEDS: PANTOPRAZOLE SODIUM 40 MG/100 ML PRE-DOCKED IVPB SCH ×2 (09:51→21:34)
[2016-09-06] MEDS: THIAMINE HCL 100 MG TABLET (FP) PO SCH (09:51)
[2016-09-06] MEDS: CEFTRIAXONE 50 ML IVPB SCH (09:51)
--- NOTE | 2016-09-06 10:23 | PN ---
Progress Note, Physician Chief Complaint: intubated sedated-- received Haldol last night not responding to name - Current Medication List Current Medications: Active Medications Acetaminophen (Tylenol -) 650 mg PO Q4H PRN PRN Reason: FEVER OR PAIN Albuterol/Ipratropium (Duoneb -) 1 amp NEB Q6H PRN PRN Reason: SHORTNESS OF BREATH Last Admin: 09/05/16 17:29 Dose: 1 amp Amlodipine Besylate (Norvasc -) 5 mg PO DAILY [facility] Last Admin: 09/06/16 09:51 Dose: 5 mg Atorvastatin Calcium (Lipitor -) 20 mg PO [facility] Last Admin: 09/05/16 22:56 Dose: Not Given Chlorhexidine Gluconate (Hibiclens For Decolonization -) 1 applic TP [facility] Last Admin: 09/05/16 22:56 Dose: 1 applic Donepezil HCl (Aricept -) 10 mg PO [facility] Last Admin: 09/05/16 22:56 Dose: Not Given Gabapentin (Neurontin -) 100 mg PO TID [facility] Last Admin: 09/06/16 05:34 Dose: Not Given Haloperidol (Haldol Injection (Fast Acting) -) 5 mg IM Q4H PRN PRN Reason: AGITATION Last Admin: 09/05/16 23:47 Dose: 5 mg Sodium Chloride (Normal Saline -) 1,000 mls @ 42 mls/hr IV ASDIR [facility] Last Admin: 09/05/16 14:30 Dose: 42 mls/hr Ceftriaxone Sodium (Rocephin 1gm Ivpb (Pre-Docked)) 50 mls @ 100 mls/hr IVPB DAILY [facility] Last Admin: 09/06/16 09:51 Dose: 100 mls/hr Insulin Aspart (Novolog Vial Sliding Scale -) 1 vial SQ Q6HPO [facility] PRN Reason: Protocol Last Admin: 09/06/16 05:35 Dose: 2 units Mupirocin (Bactroban Ointment (For Decolonization) -) 1 applic NS BID [facility] Stop: 09/10/16 21:59 Last Admin: 09/06/16 09:50 Dose: 1 applic Pantoprazole Sodium (Protonix 40mg Ivpb (Pre-Docked)) 40 mg IVPB BID [facility] Last Admin: 09/06/16 09:51 Dose: 40 mg Potassium Chloride (Potassium Chloride Oral Liquid) 40 meq PO ONCE ONE Stop: 09/06/16 12:01 Tamsulosin HCl (Flomax -) 0.4 mg PO DAILY@0830 [facility] Last Admin: 09/06/16 08:35 Dose: 0.4 mg Thiamine HCl (Vitamin B1 -) 100 mg PO DAILY [facility] Last Admin: 09/06/16 09:51 Dose: 100 mg - Objective Vital Signs: Vital Signs Temperature 98.6 F 09/06/16 06:00 Pulse Rate 76 09/06/16 07:00 Respiratory Rate 14 09/06/16 07:00 Blood Pressure 143/71 09/06/16 07:00 O2 Sat by Pulse Oximetry (%) 100 09/05/16 22:00 Constitutional: Yes: No Distress Cardiovascular: Yes: Regular Rate and Rhythm Respiratory: Yes: Diminished Gastrointestinal: Yes: Normal Bowel Sounds, Soft, Other (peg+). No: Distention , Tenderness Edema: No Labs: CBC, BMP 09/06/16 05:15 09/06/16 05:15 INR, PTT INR 1.13 (0.82-1.09) 09/04/16 20:20 Problem List - Problems (1) Dehydration Code(s): E86.0 - DEHYDRATION (2) Dementia Code(s): F03.90 - UNSPECIFIED DEMENTIA WITHOUT BEHAVIORAL DISTURBANCE Qualifiers: Dementia type: unspecified type Dementia behavioral disturbance: with behavioral disturbance Qualified Code(s): F03.91 - Unspecified dementia with behavioral disturbance; F10.97 - Alcohol use, unspecified with alcohol- induced persisting dementia (3) Diabetes Code(s): E11.9 - TYPE 2 DIABETES MELLITUS WITHOUT COMPLICATIONS (4) Diarrhea Code(s): R19.7 - DIARRHEA, UNSPECIFIED Qualifiers: Diarrhea type: unspecified type Qualified Code(s): R19.7 - Diarrhea, unspecified (5) Renal failure Code(s): N19 - UNSPECIFIED KIDNEY FAILURE (6) GI (gastrointestinal bleed) Code(s): K92.2 - GASTROINTESTINAL HEMORRHAGE, UNSPECIFIED Assessment/Plan PLAN on IV fluids BP better monitor urine output Iv antibiotics-- Rocephin ICU monitoring trial of weaning when mental status better spoke with resident and ICU staff
--- NOTE | 2016-09-06 12:53 | PN ---
Teaching Attending Note Name of Resident: Segundo Worthy ATTENDING PHYSICIAN STATEMENT I saw and evaluated the patient. I reviewed the resident's note and discussed the case with the resident. I agree with the resident's findings and plan as documented. SUBJECTIVE: Pt seen and examined in the ICU. Remains intubated, somewhat arousable off sedation. Tolerating CPAP/PS trials. OBJECTIVE: Last Vital Signs Temp Pulse Resp BP Pulse Ox 98.2 F 92 H 18 119/62 100 09/06/16 10:00 09/06/16 12:11 09/06/16 12:00 09/06/16 12:00 09/06/16 12:11 Intake & Output 09/03/16 09/04/16 09/05/16 09/06/16 23:59 23:59 23:59 23:59 Intake Total 2400 3200 1464 924 Output Total 700 250 Balance 2400 3200 764 674 Weight 153 lb 1.6 oz 151 lb 9 oz Gen: intubated, somnolent Heart: RRR Lung: decreased breath sounds at the bases Abd: soft, nontender Ext: no edema CBC, BMP 09/06/16 05:15 09/06/16 05:15 Active Medications Acetaminophen (Tylenol -) 650 mg PO Q4H PRN PRN Reason: FEVER OR PAIN Albuterol/Ipratropium (Duoneb -) 1 amp NEB Q6H PRN PRN Reason: SHORTNESS OF BREATH Last Admin: 09/05/16 17:29 Dose: 1 amp Amlodipine Besylate (Norvasc -) 5 mg PO DAILY [facility] Last Admin: 09/06/16 09:51 Dose: 5 mg Atorvastatin Calcium (Lipitor -) 20 mg PO HS [facility] Last Admin: 09/05/16 22:56 Dose: Not Given Chlorhexidine Gluconate (Hibiclens For Decolonization -) 1 applic TP HS [facility] Last Admin: 09/05/16 22:56 Dose: 1 applic Donepezil HCl (Aricept -) [address] [facility] Last Admin: 09/05/16 22:56 Dose: Not Given Gabapentin (Neurontin -) 100 mg PO TID [facility] Last Admin: 09/06/16 05:34 Dose: Not Given Haloperidol (Haldol Injection (Fast Acting) -) 5 mg IM Q4H PRN PRN Reason: AGITATION Last Admin: 09/05/16 23:47 Dose: 5 mg Sodium Chloride (Normal Saline -) 1,000 mls @ 42 mls/hr IV ASDIR [facility] Last Admin: 09/05/16 14:30 Dose: 42 mls/hr Ceftriaxone Sodium (Rocephin 1gm Ivpb (Pre-Docked)) 50 mls @ 100 mls/hr IVPB DAILY [facility] Last Admin: 09/06/16 09:51 Dose: 100 mls/hr Insulin Aspart (Novolog Vial Sliding Scale -) 1 vial SQ Q6HPO [facility] PRN Reason: Protocol Last Admin: 09/06/16 11:26 Dose: 2 units Mupirocin (Bactroban Ointment (For Decolonization) -) 1 applic NS BID [facility] Stop: 09/10/16 21:59 Last Admin: 09/06/16 09:50 Dose: 1 applic Pantoprazole Sodium (Protonix 40mg Ivpb (Pre-Docked)) 40 mg IVPB BID [facility] Last Admin: 09/06/16 09:51 Dose: 40 mg Tamsulosin HCl (Flomax -) 0.4 mg PO DAILY@0830 [facility] Last Admin: 09/06/16 08:35 Dose: 0.4 mg Thiamine HCl (Vitamin B1 -) 100 mg PO DAILY [facility] Last Admin: 09/06/16 09:51 Dose: 100 mg ASSESSMENT AND PLAN: Acute Respiratory Failure Bradycardia s/p PEG placement HTN DM Dementia - wean to extubate - minimize sedation to assess mental status - replete lytes, keep K >4, Mg>2 - taper FiO2 to keep SPo2 >90% - aspiration precautions once extubated - DVT/GI prophylaxis - continue ICU monitoring critical care time spent in reviewing chart, evaluating patient and formulating plan 36 min
--- NOTE | 2016-09-06 14:28 | PN ---
Physical Exam: SUBJECTIVE: Patient seen and examined Patient extubated, mainataing saturation of 100% on 4L patient accepting tube feed OBJECTIVE: Vital Signs Period Temp Pulse Resp BP Sys/Farias Pulse Ox Last 24 Hr 98.2 F-100.4 F 76-117 14-20 104-177/62-92 100-100 GENERAL: extubated EYES: opening his eyes EARS, NOSE, THROAT: dry mucous membranes. LUNGS: Breath sounds equal, clear to auscultation bilaterally. decrease breath sound at base HEART: s1s2 normal. ABDOMEN: Soft, not distended, normoactive bowel sounds, peg tube in situ. UPPER EXTREMITIES: 2+ pulses, warm, well-perfused. No cyanosis. No peripheral edema. LOWER EXTREMITIES: well-perfused. No calf tenderness. No peripheral edema. NEUROLOGICAL: unobtainable SKIN: Warm, dry, Laboratory Results - last 24 hr 09/05/16 09/05/16 09/05/16 13:15 13:15 13:15 WBC RBC Hgb Hct MCV MCHC RDW Plt Count MPV Neutrophils % Lymphocytes % Monocytes % Eosinophils % Basophils % Puncture Site ABG pH ABG pCO2 at Pt Temp ABG pO2 at Pt Temp ABG HCO3 ABG O2 Sat (Measured) ABG O2 Content ABG Base Excess Yair Test O2 Delivery Device Oxygen Flow Rate Vent Mode Vent Rate Mechanical Rate PEEP Pressure Support Vent Sodium Potassium Chloride Carbon Dioxide Anion Gap BUN Creatinine Creat Clearance w eGFR POC Glucometer Random Glucose Lactic Acid 2.690 H* Calcium Phosphorus Magnesium Total Bilirubin AST ALT Alkaline Phosphatase Creatine Kinase 601 H D Creatine Kinase Index 1.2 CK-MB (CK-2) 7.246 H CK-MB (CK-2) Rel Index Cancelled Troponin I 0.13 H D Total Protein Albumin 09/05/16 09/05/16 09/05/16 18:00 18:00 18:08 WBC RBC Hgb Hct MCV MCHC RDW Plt Count MPV Neutrophils % Lymphocytes % Monocytes % Eosinophils % Basophils % Puncture Site ABG pH ABG pCO2 at Pt Temp ABG pO2 at Pt Temp ABG HCO3 ABG O2 Sat (Measured) ABG O2 Content ABG Base Excess Yair Test O2 Delivery Device Oxygen Flow Rate Vent Mode Vent Rate Mechanical Rate PEEP Pressure Support Vent Sodium Potassium Chloride Carbon Dioxide Anion Gap BUN Creatinine Creat Clearance w eGFR POC Glucometer 168.81706 Random Glucose Lactic Acid 1.173 Calcium Phosphorus Magnesium Total Bilirubin AST ALT Alkaline Phosphatase Creatine Kinase Creatine Kinase Index CK-MB (CK-2) CK-MB (CK-2) Rel Index Troponin I 1.11 H* D Total Protein Albumin 09/05/16 09/06/16 09/06/16 22:15 00:37 02:00 WBC RBC Hgb Hct MCV MCHC RDW Plt Count MPV Neutrophils % Lymphocytes % Monocytes % Eosinophils % Basophils % Puncture Site ABG pH ABG pCO2 at Pt Temp ABG pO2 at Pt Temp ABG HCO3 ABG O2 Sat (Measured) ABG O2 Content ABG Base Excess Yair Test O2 Delivery Device Oxygen Flow Rate Vent Mode Vent Rate Mechanical Rate PEEP Pressure Support Vent Sodium 140 Potassium 2.9 L* Chloride 102 Carbon Dioxide 25 Anion Gap 13 BUN 8 D Creatinine 0.9 Creat Clearance w eGFR POC Glucometer 162.38326 Random Glucose 123 H D Lactic Acid Calcium 8.4 L Phosphorus 2.0 L Magnesium 1.7 L D Total Bilirubin AST ALT Alkaline Phosphatase Creatine Kinase 656 H Creatine Kinase Index 1.2 CK-MB (CK-2) 8.098 H CK-MB (CK-2) Rel Index Troponin I 1.02 H* Total Protein Albumin 09/06/16 09/06/16 09/06/16 02:00 02:00 05:15 WBC 9.6 RBC 4.51 Hgb 11.8 D Hct 36.1 MCV 80.0 MCHC 32.7 RDW 16.2 H Plt Count 213 MPV 8.3 Neutrophils % 76.7 Lymphocytes % 16.7 D Monocytes % 6.0 Eosinophils % 0.3 Basophils % 0.3 Puncture Site ABG pH ABG pCO2 at Pt Temp ABG pO2 at Pt Temp ABG HCO3 ABG O2 Sat (Measured) ABG O2 Content ABG Base Excess Yair Test O2 Delivery Device Oxygen Flow Rate Vent Mode Vent Rate Mechanical Rate PEEP Pressure Support Vent Sodium 139 Potassium 3.3 L Chloride 104 Carbon Dioxide 22 Anion Gap 13 BUN 7 Creatinine 0.8 Creat Clearance w eGFR POC Glucometer Random Glucose 117 H Lactic Acid Calcium 8.2 L Phosphorus Magnesium Total Bilirubin AST ALT Alkaline Phosphatase Creatine Kinase Creatine Kinase Index CK-MB (CK-2) CK-MB (CK-2) Rel Index Cancelled Troponin I Total Protein Albumin 09/06/16 09/06/16 09/06/16 05:15 05:31 07:20 WBC RBC Hgb Hct MCV MCHC RDW Plt Count MPV Neutrophils % Lymphocytes % Monocytes % Eosinophils % Basophils % Puncture Site Right radial ABG pH 7.49 H ABG pCO2 at Pt Temp 32.9 L ABG pO2 at Pt Temp 271.0 H* D ABG HCO3 24.6 ABG O2 Sat (Measured) 100.0 H* ABG O2 Content 17.3 ABG Base Excess 2.0 Yair Test Positive O2 Delivery Device Vent Oxygen Flow Rate 50% Vent Mode A/c Vent Rate 14 Mechanical Rate Yes PEEP 5.0 Pressure Support Vent 450 Sodium 138 Potassium 3.1 L Chloride 101 Carbon Dioxide 24 Anion Gap 13 BUN 7 Creatinine 0.7 Creat Clearance w eGFR > 60 POC Glucometer 157.28571 Random Glucose 133 H Lactic Acid Calcium 8.3 L Phosphorus 2.5 D Magnesium 2.1 D Total Bilirubin 0.6 AST 41 H ALT 25 Alkaline Phosphatase 59 Creatine Kinase Creatine Kinase Index CK-MB (CK-2) CK-MB (CK-2) Rel Index Troponin I Total Protein 4.5 L Albumin 2.1 L 09/06/16 11:16 WBC RBC Hgb Hct MCV MCHC RDW Plt Count MPV Neutrophils % Lymphocytes % Monocytes % Eosinophils % Basophils % Puncture Site ABG pH ABG pCO2 at Pt Temp ABG pO2 at Pt Temp ABG HCO3 ABG O2 Sat (Measured) ABG O2 Content ABG Base Excess Yair Test O2 Delivery Device Oxygen Flow Rate Vent Mode Vent Rate Mechanical Rate PEEP Pressure Support Vent Sodium Potassium Chloride Carbon Dioxide Anion Gap BUN Creatinine Creat Clearance w eGFR POC Glucometer 151.24441 Random Glucose Lactic Acid Calcium Phosphorus Magnesium Total Bilirubin AST ALT Alkaline Phosphatase Creatine Kinase Creatine Kinase Index CK-MB (CK-2) CK-MB (CK-2) Rel Index Troponin I Total Protein Albumin Active Medications Generic Name Dose Route Start Last Admin Trade Name Freq PRN Reason Stop Dose Admin Acetaminophen 650 mg 09/05/16 13:19 Tylenol - PO Q4H PRN FEVER OR PAIN Albuterol/Ipratropium 1 amp 09/05/16 15:27 09/05/16 17:29 Duoneb - NEB 1 amp Q6H PRN Administration SHORTNESS OF BREATH Amlodipine Besylate 5 mg 09/06/16 10:00 09/06/16 09:51 Norvasc - PO 5 mg DAILY KATHRYN Administration Atorvastatin Calcium 20 mg 09/05/16 22:00 09/05/16 22:56 Lipitor - PO Not Given HS KATHRYN Chlorhexidine Gluconate 1 applic 09/05/16 22:00 09/05/16 22:56 Hibiclens For Decolonization - TP 1 applic HS KATHRYN Administration Donepezil HCl 10 mg 09/05/16 22:00 09/05/16 22:56 Aricept - PO Not Given HS KATHRYN Gabapentin 100 mg 09/05/16 14:00 09/06/16 05:34 Neurontin - PO Not Given TID KATHRYN Haloperidol 5 mg 09/05/16 13:19 09/05/16 23:47 Haldol Injection (Fast Acting) - IM 5 mg Q4H PRN Administration AGITATION Sodium Chloride 1,000 mls @ 42 mls/hr 09/05/16 16:38 09/05/16 14:30 Normal Saline - IV 42 mls/hr ASDIR KATHRYN Administration Ceftriaxone Sodium 50 mls @ 100 mls/hr 09/06/16 10:00 09/06/16 09:51 Rocephin 1gm Ivpb (Pre-Docked) IVPB 100 mls/hr DAILY [facility] Administration Insulin Aspart 1 vial 09/05/16 18:15 09/06/16 11:26 Novolog Vial Sliding Scale - SQ 2 units Q6HPO KATHRYN Administration Protocol Metoclopramide HCl 10 mg 09/06/16 16:30 Reglan - PO TIDAC [facility]YN Mupirocin 1 applic 09/05/16 22:00 09/06/16 09:50 Bactroban Ointment (For Decolonization) - NS 09/10/16 21:59 1 applic BID KATHRYN Administration Pantoprazole Sodium 40 mg 09/05/16 22:00 09/06/16 09:51 Protonix 40mg Ivpb (Pre-Docked) IVPB 40 mg BID [facility]AT[facility]YN Administration Tamsulosin HCl 0.4 mg 09/06/16 08:30 09/06/16 08:35 Flomax - PO 0.4 mg DAILY@0830 KAT[facility]YN Administration Thiamine HCl 100 mg 09/06/16 10:00 09/06/16 09:51 Vitamin B1 - PO 100 mg DAILY [facility] Administration ASSESSMENT/PLAN: Acute Respiratory Failure extubated, on venturi 4L keep spo2.90 abg reviewed cxr reviewed monitor vitals monitor intake/ output neb duoneb take aspiration precautions bradycardia resolved ekg reviewed cardiology consult in view of episode of etelvina with elevated tro i elevated trop i could be stress induced trending down s/p PEG placement peg site no erythema continue with peg feed gastro on case: adviced to continue with antibiotic and add reglan take aspiration precautions HTN on norvasc DM blood glucose monitoring insulin sliding scale Dementia donepezil electrolyte abnormality hypomagnesemia and hypokalemia mg corrected still have hypokalemia, given kcl, repeat K in evening fluid: through peg tube electrolyte: repeat in evening nutrition: tube feed dvt pro: scd b/l gi pro protonix bid dispo: admit in icu Dispo: We will continue to follow the patient. Thank you for this consultative opportunity. Visit type - Emergency Visit Emergency Visit: Yes ED Registration Date: 08/29/16 Care time: The patient presented to the Emergency Department on the above date and was hospitalized for further evaluation of their emergent condition. - New Patient This patient is new to me today: No - Critical Care Critical Care patient: Yes Total Critical Care Time (in minutes): 45 Critical Care Statement: The care of this patient involved high complexity decision making to prevent further life threatening deterioration of the patient 's condition and/or to evalute & treat vital organ system(s) failure or risk of failure.
--- NOTE | 2016-09-06 16:33 | CON.CARD ---
Cardiology Consult (text) - Consultation Consultation Note: CC: unstable bradycardia 80yo male with h/o HTN, DM, hyperlipidemia, dementia, + rpr (recent tx), who initially presented on 08/27 for dehydration in the setting of diarrhea and poor po intake whose hosptial course now complicated by episode of bradycardia. Was in brought to PACU after uneventful Peg placement. Was noted to become bradycardic to 37. Responded to atropine but then bradycardia recurred and given epi and intubated. Per report had agonal breathing at the time, possible hypoxia/desaturation. Subsequently tachycardic into 120's. Now extubated. Per report, at baseline, dementia. Often refusing medications, frequently incoherent speech. Currently not opening eyes or communicating. Withdraws to discomfort. pmhx/pshx: per hpi social hx: unable to obtain fam hx: unable to obtain ros: unable to obtain. Ambulatory Orders Donepezil HCl [Aricept -] 10 mg PO DAILY 06/28/16 Gabapentin 100 mg PO TID 06/28/16 Losartan Potassium 25 mg PO DAILY 06/28/16 Atorvastatin Ca [Lipitor] 20 mg PO HS tablet 06/30/16 Tamsulosin HCl [Flomax -] 0.4 mg PO DAILY@0830 cap.er.24h 06/30/16 Metformin HCl 500 mg PO BID #0 07/04/16 Pantoprazole Sodium [Protonix] 40 mg PO DAILY #0 07/04/16 Thiamine HCl [B-1] 100 mg PO DAILY #60 tablet 07/04/16 Amoxicillin/Potassium Clav [Augmentin 500-125 Tablet] 1 each PO BID #10 tablet 07/21/16 Current Medications Acetaminophen (Tylenol -) 650 mg PO Q4H PRN PRN Reason: FEVER OR PAIN Albuterol/Ipratropium (Duoneb -) 1 amp NEB Q6H PRN PRN Reason: SHORTNESS OF BREATH Last Admin: 09/05/16 17:29 Dose: 1 amp Amlodipine Besylate (Norvasc -) 5 mg PO DAILY [facility] Last Admin: 09/06/16 09:51 Dose: 5 mg Atorvastatin Calcium (Lipitor -) 20 mg PO HS [facility] Last Admin: 09/05/16 22:56 Dose: Not Given Chlorhexidine Gluconate (Hibiclens For Decolonization -) 1 applic TP HS [facility] Last Admin: 09/05/16 22:56 Dose: 1 applic Donepezil HCl (Aricept -) 10 mg PO HS [facility] Last Admin: 09/05/16 22:56 Dose: Not Given Gabapentin (Neurontin -) 100 mg PO TID [facility] Last Admin: 09/06/16 14:43 Dose: 100 mg Haloperidol (Haldol Injection (Fast Acting) -) 5 mg IM Q4H PRN PRN Reason: AGITATION Last Admin: 09/05/16 23:47 Dose: 5 mg Ceftriaxone Sodium (Rocephin 1gm Ivpb (Pre-Docked)) 50 mls @ 100 mls/hr IVPB DAILY [facility] Last Admin: 09/06/16 09:51 Dose: 100 mls/hr Insulin Aspart (Novolog Vial Sliding Scale -) 1 vial SQ Q6HPO [facility] PRN Reason: Protocol Last Admin: 09/06/16 11:26 Dose: 2 units Metoclopramide HCl (Reglan -) 10 mg PO TIDAC [facility] Mupirocin (Bactroban Ointment (For Decolonization) -) 1 applic NS BID [facility] Stop: 09/10/16 21:59 Last Admin: 09/06/16 09:50 Dose: 1 applic Pantoprazole Sodium (Protonix 40mg Ivpb (Pre-Docked)) 40 mg IVPB BID [facility] Last Admin: 09/06/16 09:51 Dose: 40 mg Tamsulosin HCl (Flomax -) 0.4 mg PO DAILY@0830 [facility] Last Admin: 09/06/16 08:35 Dose: 0.4 mg Thiamine HCl (Vitamin B1 -) 100 mg PO DAILY [facility] Last Admin: 09/06/16 09:51 Dose: 100 mg Vital Signs - 24 hr 09/05/16 09/05/16 09/05/16 17:00 17:29 18:00 Temperature 98.9 F Pulse Rate 102 H 95 H Respiratory 16 17 14 Rate Blood Pressure 172/83 104/63 O2 Sat by Pulse 100 Oximetry (%) 09/05/16 09/05/16 09/05/16 19:00 19:37 20:00 Temperature Pulse Rate 94 H 94 H Respiratory 14 20 18 Rate Blood Pressure 132/72 119/67 O2 Sat by Pulse Oximetry (%) 09/05/16 09/05/16 09/05/16 21:00 21:24 22:00 Temperature 98.6 F Pulse Rate 89 87 Respiratory 19 17 14 Rate Blood Pressure 145/83 139/80 O2 Sat by Pulse 100 Oximetry (%) 09/05/16 09/06/16 09/06/16 23:00 00:00 00:35 Temperature Pulse Rate 86 92 H Respiratory 14 14 16 Rate Blood Pressure 150/74 152/76 O2 Sat by Pulse Oximetry (%) 09/06/16 09/06/16 09/06/16 01:00 02:00 03:00 Temperature 98.4 F Pulse Rate 95 H 86 79 Respiratory 17 16 15 Rate Blood Pressure 177/92 137/70 122/75 O2 Sat by Pulse Oximetry (%) 09/06/16 09/06/16 09/06/16 03:35 04:00 05:00 Temperature Pulse Rate 79 76 Respiratory 15 18 14 Rate Blood Pressure 121/65 140/72 O2 Sat by Pulse Oximetry (%) 09/06/16 09/06/16 09/06/16 06:00 06:33 07:00 Temperature 98.6 F Pulse Rate 79 76 Respiratory 14 14 14 Rate Blood Pressure 137/76 143/71 O2 Sat by Pulse Oximetry (%) 09/06/16 09/06/16 09/06/16 08:00 09:00 10:00 Temperature 98.2 F Pulse Rate 77 80 Respiratory 16 14 16 Rate Blood Pressure 145/76 117/70 O2 Sat by Pulse 100 100 Oximetry (%) 09/06/16 09/06/16 09/06/16 10:38 12:00 12:11 Temperature Pulse Rate 77 88 92 H Respiratory 14 18 Rate Blood Pressure 119/62 O2 Sat by Pulse 100 100 Oximetry (%) Intake & Output 09/04/16 09/05/16 09/06/16 09/07/16 07:59 07:59 07:59 07:59 Intake Total 2300 1999 2388 Output Total 950 200 Balance 2300 2000 1438 -200 Weight 151 lb 9 oz nad no jvd rrr s1s2 no mrg trace rales , poor effort no le e/c/c abd nd pos bs pos dp pt no carotid bruits no jaundice diaphoresis awake, not communicative CBC, BMP 09/06/16 05:15 09/06/16 05:15 Laboratory Tests 09/05/16 09/05/16 09/05/16 07:35 13:15 13:15 Potassium 3.1 L Lactic Acid 2.690 H* Magnesium 1.2 L Creatine Kinase 601 H D CK-MB (CK-2) 7.246 H Troponin I 0.13 H D 09/05/16 09/05/16 09/05/16 18:00 18:00 22:15 Potassium 2.9 L* Lactic Acid 1.173 Magnesium Creatine Kinase CK-MB (CK-2) Troponin I 1.11 H* D 09/06/16 02:00 Potassium Lactic Acid Magnesium Creatine Kinase 656 H CK-MB (CK-2) 8.098 H Troponin I 1.02 H* EKG 09/05: poor quality. sinus tachycardia, 121 bpm. right axis deviation. possible lvh. axis has changed and heart rate increased. otherwise similar. tele: sr zeeshan. pvc's, brief 3b nsvt cxr: no infiltrates echo here nl lv size/fn. rv not well seen. nl valves. 80yo male with h/o HTN, DM, hyperlipidemia, dementia, + rpr (recent tx), who initially presented on 08/27 for dehydration in the setting of diarrhea and poor po intake whose hosptial course now complicated by episode of bradycardia/ACLS. bradycardia - per report HR down to 37 bpm. Unknown if patient was hemodynamically unstable at the time. - post peg tube placement. Likely multifactorial - drug induced from increased vagal tone from sedation, GI manipulation or pain. Also may have contribution from hypoxia as well as electrolyte abnormalities. Patient had low k and mg at the time. - no further recurrence. would con't telemetry monitoring. Has had multiple recent admissions with no telemetry abnormalities, low suspicion that this is 2/ 2 underlying conduction disease. - avoid qt prolonging drugs when possible - aggressive electrolyte repletion. keep k > 4 or mg > 2. repeat k, mg this afternoon. nstemi - likely demand in setting of bradycardia and then tachycardia to 120's. Likely has underlying CAD but would not pursue ischemic work up given comorbidities and frequent refusal to take medications. con't atorvastati. can add asa if GI amenable. - no acute ischemic changes on ekg, echo unremarkable HTN - stable on current meds poor overall prognosis
--- NOTE | 2016-09-06 17:40 | PN ---
GI Progress Note Subjective: extubated, bradycardia resolved, mild increase in troponin, tolerating tube feeds, received Haldol last night - Objective Vital Signs: Vital Signs Temperature 99 F 09/06/16 14:00 Pulse Rate 90 09/06/16 16:00 Respiratory Rate 20 09/06/16 16:00 Blood Pressure 141/88 09/06/16 16:00 O2 Sat by Pulse Oximetry (%) 100 09/06/16 12:11 Constitutional: No Distress, Poor Hygeine HENT: Yes: Atraumatic Cardiovascular: Yes: Regular Rate and Rhythm. No: JVD Respiratory: Yes: Diminished (at the bases) ...Palpate: Yes: Soft, Other (g-tube in place). No: Hepatomegaly, Mass, Pulsatile Mass, Tenderness Labs: CBC, BMP 09/06/16 05:15 09/06/16 05:15 INR, PTT INR 1.13 (0.82-1.09) 09/04/16 20:20 Problem List - Problems (1) Failure to thrive Assessment/Plan: continue tube feeds Code(s): WOH9070 - (2) Rectal bleeding Assessment/Plan: R> patient poor candidate for any gi procedures at this time, this was explained to her daughter in law who was requesting for the procedure to be performed. Code(s): K62.5 - HEMORRHAGE OF ANUS AND RECTUM (3) Dementia Assessment/Plan: consider neurology consult Code(s): F03.90 - UNSPECIFIED DEMENTIA WITHOUT BEHAVIORAL DISTURBANCE Qualifiers: Dementia type: unspecified type Dementia behavioral disturbance: with behavioral disturbance Qualified Code(s): F03.91 - Unspecified dementia with behavioral disturbance; F10.97 - Alcohol use, unspecified with alcohol- induced persisting dementia
[2016-09-06] MEDS ORDERED: POTASSIUM CHLORIDE ORAL LIQUID 20 MEQ/15 ML ONE (21:23)
[2016-09-06] MEDS: CHLORHEXIDINE GLUCONATE 4% CLEANSER FOR DECOLONIZATION TP SCH (21:34)
[2016-09-06] MEDS: DONEPEZIL HCL 10 MG TABLET (FP) PO SCH (21:34)
[2016-09-06] MEDS: ATORVASTATIN CA 20 MG TABLET (FP) PO SCH (21:34)
[2016-09-06] MEDS ORDERED: RANITIDINE HCL 150 MG/10 ML UNIT-DOSE CUP PO SCH (22:00)
[2016-09-07] MEDS: INSULIN SLIDING SCALE (NOVOLOG) 1 VIAL SQ SCH ×4 (01:00→18:22)
[2016-09-07] MEDS: METOCLOPRAMIDE HCL 10 MG TABLET (FP) PO SCH ×3 (06:34→11:55)
[2016-09-07] MEDS: GABAPENTIN 100 MG CAPSULE (FP) PO SCH ×3 (06:34→21:34)
[2016-09-07 06:35] LABS: BASOPHIL 0.5 % (0-2.0); MCH 26.6 pg (25.7-33.7); MCHC 32.9 g/dl (32.0-35.9); MEAN CELL VOLUME 80.6 fl (80-96); NEUTROPHILS 77.6 % (42.8-82.8); PLATELET COUNT 212 K/MM3 (134-434); RDW 16.5 % (11.9-15.9); WHITE BLOOD COUNT 9.5 K/mm3 (4.0-10.0)
[2016-09-07 06:58] LABS: CALCIUM 8.1 mg/dL (8.5-10.1); COCKROFT - GAULT 71.14; CREATININE 0.8 mg/dL (0.7-1.3)
--- NOTE | 2016-09-07 08:51 | PN ---
Physical Exam: SUBJECTIVE: Patient seen and examined Patient lying comfartably in bed spo2> 98, on room air getting tube feed no fever over night no bradycardia overnight OBJECTIVE: Vital Signs Period Temp Pulse Resp BP Sys/Farias Pulse Ox Last 24 Hr 98 F-99 F 77-92 14-22 117-172/52-88 98-100 GENERAL: awake EYES: opening his eyes EARS, NOSE, THROAT: dry mucous membranes. LUNGS: Breath sounds equal, clear to auscultation bilaterally. decrease breath sound at base HEART: s1s2 normal. ABDOMEN: Soft, not distended, normoactive bowel sounds, peg tube in situ. UPPER EXTREMITIES: 2+ pulses, warm, well-perfused. No cyanosis. No peripheral edema. LOWER EXTREMITIES: well-perfused. No calf tenderness. No peripheral edema. NEUROLOGICAL: unobtainable SKIN: Warm, dry, Laboratory Results - last 24 hr 09/06/16 09/06/16 09/06/16 11:16 16:51 17:30 WBC RBC Hgb Hct MCV MCHC RDW Plt Count MPV Neutrophils % Lymphocytes % Monocytes % Eosinophils % Basophils % Sodium Potassium 3.8 D Chloride Carbon Dioxide Anion Gap BUN Creatinine POC Glucometer [phone] Random Glucose Calcium Magnesium Troponin I 09/06/16 09/06/16 09/07/16 17:30 17:30 05:15 WBC 9.5 RBC 4.66 Hgb 12.4 Hct 37.6 MCV 80.6 MCHC 32.9 RDW 16.5 H Plt Count 212 MPV 8.0 Neutrophils % 77.6 Lymphocytes % 14.1 Monocytes % 6.8 Eosinophils % 1.0 D Basophils % 0.5 Sodium Potassium Chloride Carbon Dioxide Anion Gap BUN Creatinine POC Glucometer Random Glucose Calcium Magnesium 1.8 Troponin I 0.48 H D 09/07/16 05:15 WBC RBC Hgb Hct MCV MCHC RDW Plt Count MPV Neutrophils % Lymphocytes % Monocytes % Eosinophils % Basophils % Sodium 139 Potassium 4.0 Chloride 102 Carbon Dioxide 30 D Anion Gap 7 L BUN 9 D Creatinine 0.8 POC Glucometer Random Glucose 175 H D Calcium 8.1 L Magnesium Troponin I Active Medications Generic Name Dose Route Start Last Admin Trade Name Freq PRN Reason Stop Dose Admin Acetaminophen 650 mg 09/05/16 13:19 Tylenol - PO Q4H PRN FEVER OR PAIN Albuterol/Ipratropium 1 amp 05/02/17 15:27 09/05/16 17:29 Duoneb - NEB 1 amp Q6H PRN Administration SHORTNESS OF BREATH Amlodipine Besylate 5 mg 09/06/16 10:00 09/06/16 09:51 Norvasc - PO 5 mg DAILY KAT[facility] Administration Atorvastatin Calcium 20 mg 09/05/16 22:00 09/06/16 21:34 Lipitor - PO 20 mg HS KATHRYN Administration Chlorhexidine Gluconate 1 applic 09/05/16 22:00 09/06/16 21:34 Hibiclens For Decolonization - TP 1 applic HS KAT[facility]YN Administration Donepezil HCl 10 mg 09/05/16 22:00 09/06/16 21:34 Aricept - PO 10 mg HS KAT[facility]YN Administration Gabapentin 100 mg 09/05/16 14:00 09/07/16 06:34 Neurontin - PO 100 mg TID KATHRYN Administration Ceftriaxone Sodium 50 mls @ 100 mls/hr 09/06/16 10:00 09/06/16 09:51 Rocephin 1gm Ivpb (Pre-Docked) IVPB 100 mls/hr DAILY [facility] Administration Insulin Aspart 1 vial 09/05/16 18:15 09/07/16 06:37 Novolog Vial Sliding Scale - SQ 2 units Q6HPO KATHRYN Administration Protocol Magnesium Oxide 400 mg 09/07/16 10:00 Mag-Ox - PO 09/07/16 10:01 ONCE ONE Metoclopramide HCl 10 mg 09/06/16 16:30 09/07/16 06:34 Reglan - PO 10 mg TIDAC K[facility]YN Administration Mupirocin 1 applic 09/05/16 22:00 09/06/16 21:34 Bactroban Ointment (For Decolonization) - NS 09/10/16 21:59 1 applic BID KATHRYN Administration Pantoprazole Sodium 40 mg 09/05/16 22:00 09/06/16 21:34 Protonix 40mg Ivpb (Pre-Docked) IVPB 40 mg BID [facility] Administration Tamsulosin HCl 0.4 mg 09/06/16 08:30 09/06/16 08:35 Flomax - PO 0.4 mg DAILY@0830 [facility] Administration Thiamine HCl 100 mg 09/06/16 10:00 09/06/16 09:51 Vitamin B1 - PO 100 mg DAILY [facility] Administration ASSESSMENT/PLAN: Acute Respiratory Failure on room air, spo2 98 monitor vitals monitor intake/ output neb with duoneb take aspiration precautions bradycardia resolved ekg reviewed cardiology consult appreciated elevated trop i could be stress induced trending down s/p PEG placement peg site no erythema continue with peg feed gastro on case. take aspiration precautions HTN on norvasc DM blood glucose monitoring insulin sliding scale Dementia donepezil electrolyte abnormality hypomagnesemia and hypokalemia resolved fluid: through peg tube electrolyte: repeat in am nutrition: tube feed dvt pro: scd b/l gi pro protonix bid dispo: transfer to med surg Dispo: We will continue to follow the patient. Thank you for this consultative opportunity. Visit type - Emergency Visit Emergency Visit: Yes ED Registration Date: 08/29/16 Care time: The patient presented to the Emergency Department on the above date and was hospitalized for further evaluation of their emergent condition. - New Patient This patient is new to me today: No - Critical Care Critical Care patient: Yes Total Critical Care Time (in minutes): 45 Critical Care Statement: The care of this patient involved high complexity decision making to prevent further life threatening deterioration of the patient 's condition and/or to evalute & treat vital organ system(s) failure or risk of failure.
[2016-09-07] MEDS: MUPIROCIN 2% TOPICAL OINTMENT FOR DECOLONIZATION NS SCH ×2 (09:18→21:25)
[2016-09-07] MEDS: amLODIPine BESYLATE 5 MG TABLET (FP) PO SCH (09:18)
[2016-09-07] MEDS: CEFTRIAXONE 50 ML IVPB SCH (09:18)
[2016-09-07] MEDS: THIAMINE HCL 100 MG TABLET (FP) PO SCH (09:18)
[2016-09-07] MEDS: TAMSULOSIN HCL 0.4 MG CAP.ER.24H (FP) PO SCH (09:18)
[2016-09-07] MEDS: PANTOPRAZOLE SODIUM 40 MG/100 ML PRE-DOCKED IVPB SCH ×2 (09:18→21:33)
[2016-09-07] MEDS ORDERED: MAGNESIUM OXIDE 400 MG TABLET (FP) PO ONE (10:00)
[2016-09-07 11:17] LABS: TROPONIN I 0.28 ng/ml (0.00-0.05)
[2016-09-07] MEDS ORDERED: PT OWN MED DRAWER 7, Y5N ONE (11:54)
[2016-09-07] MEDS ORDERED: ALBUTEROL SO4 2.5/IPRATROPIUM 0.5 INH SOL 3 ML VIAL.NEB. NEB PRN (12:19)
[2016-09-07] MEDS ORDERED: ACETAMINOPHEN 325 MG TABLET (FP) PO PRN (12:19)
--- NOTE | 2016-09-07 12:57 | PN ---
Teaching Attending Note Name of Resident: Segundo Worthy ATTENDING PHYSICIAN STATEMENT I saw and evaluated the patient. I reviewed the resident's note and discussed the case with the resident. I agree with the resident's findings and plan as documented. SUBJECTIVE: Pt seen and examined in the ICU. Extubated yesterday without incident. Denies shortness of breath or chest pain. No fevers or chills. OBJECTIVE: Last Vital Signs Temp Pulse Resp BP Pulse Ox 98 F 88 18 135/69 99 09/07/16 10:00 09/07/16 12:00 09/07/16 12:00 09/07/16 12:00 09/07/16 10:00 Intake & Output 09/04/16 09/05/16 09/06/16 09/07/16 23:59 23:59 23:59 23:59 Intake Total 3200 1464 2044 932 Output Total 700 450 300 Balance 3200 764 1594 632 Weight 153 lb 1.6 oz 151 lb 9 oz 153 lb 2 oz Gen: NAD at rest Heart: RRR Lung: decreased breath sounds at the bases Abd: soft, nontender Ext: no edema CBC, BMP 09/07/16 05:15 09/07/16 05:15 Active Medications Acetaminophen (Tylenol -) 650 mg PO Q4H PRN PRN Reason: FEVER OR PAIN Albuterol/Ipratropium (Duoneb -) 1 amp NEB Q6H PRN PRN Reason: SHORTNESS OF BREATH Amlodipine Besylate (Norvasc -) 5 mg PO DAILY [facility] Atorvastatin Calcium (Lipitor -) 20 mg PO HS [facility] Chlorhexidine Gluconate (Hibiclens For Decolonization -) 1 applic TP HS [facility] Donepezil HCl (Aricept -) 10 mg PO HS [facility] Gabapentin (Neurontin -) 100 mg PO TID [facility] Ceftriaxone Sodium (Rocephin 1gm Ivpb (Pre-Docked)) 50 mls @ 100 mls/hr IVPB DAILY [facility] Insulin Aspart (Novolog Vial Sliding Scale -) 1 vial SQ Q6HPO [facility] PRN Reason: Protocol Metoclopramide HCl (Reglan Oral Solution -) 10 mg PO TIDAC [facility] Mupirocin (Bactroban Ointment (For Decolonization) -) 1 applic NS BID [facility] Stop: 09/10/16 21:59 Pantoprazole Sodium (Protonix 40mg Ivpb (Pre-Docked)) 40 mg IVPB BID [facility] Tamsulosin HCl (Flomax -) 0.4 mg PO DAILY@0830 [facility] Thiamine HCl (Vitamin B1 -) 100 mg PO DAILY [facility] ASSESSMENT AND PLAN: s/p Acute Respiratory Failure Bradycardia s/p PEG placement Acute NSTEMI HTN DM Dementia - ASA, statin - continue enteral feeds - monitor lytes - O2 to keep SPo2 >90% - aspiration precautions - on empiric antibiotics per GI - DVT/GI prophylaxis - can monitor on telemetry
--- NOTE | 2016-09-07 13:13 | PN ---
Progress Note, Physician Chief Complaint: Pt extubated Awake , no distress has mitten restraints as he was trying pull out iv line. - Current Medication List Current Medications: Active Medications Acetaminophen (Tylenol -) 650 mg PO Q4H PRN PRN Reason: FEVER OR PAIN Albuterol/Ipratropium (Duoneb -) 1 amp NEB Q6H PRN PRN Reason: SHORTNESS OF BREATH Amlodipine Besylate (Norvasc -) 5 mg PO DAILY [facility] Atorvastatin Calcium (Lipitor -) 20 mg PO HS [facility] Chlorhexidine Gluconate (Hibiclens For Decolonization -) 1 applic TP HS [facility] Donepezil HCl (Aricept -) 10 mg PO HS [facility] Gabapentin (Neurontin -) 100 mg PO TID [facility] Ceftriaxone Sodium (Rocephin 1gm Ivpb (Pre-Docked)) 50 mls @ 100 mls/hr IVPB DAILY [facility] Insulin Aspart (Novolog Vial Sliding Scale -) 1 vial SQ Q6HPO [facility] PRN Reason: Protocol Metoclopramide HCl (Reglan Oral Solution -) 10 mg PO TIDAC [facility] Mupirocin (Bactroban Ointment (For Decolonization) -) 1 applic NS BID [facility] Stop: 09/10/16 21:59 Pantoprazole Sodium (Protonix 40mg Ivpb (Pre-Docked)) 40 mg IVPB BID [facility] Tamsulosin HCl (Flomax -) 0.4 mg PO DAILY@0830 [facility] Thiamine HCl (Vitamin B1 -) 100 mg PO DAILY [facility] - Objective Vital Signs: Vital Signs Temperature 98 F 09/07/16 10:00 Pulse Rate 88 09/07/16 12:00 Respiratory Rate 18 09/07/16 12:00 Blood Pressure 135/69 09/07/16 12:00 O2 Sat by Pulse Oximetry (%) 99 09/07/16 10:00 Constitutional: Yes: No Distress Cardiovascular: Yes: Regular Rate and Rhythm Respiratory: Yes: Diminished Gastrointestinal: Yes: Normal Bowel Sounds, Soft, Other (peg+). No: Distention , Tenderness Edema: No Labs: CBC, BMP 09/07/16 05:15 09/07/16 05:15 INR, PTT INR 1.13 (0.82-1.09) 09/04/16 20:20 Problem List - Problems (1) Dehydration Code(s): E86.0 - DEHYDRATION (2) Dementia Code(s): F03.90 - UNSPECIFIED DEMENTIA WITHOUT BEHAVIORAL DISTURBANCE Qualifiers: Dementia type: unspecified type Dementia behavioral disturbance: with behavioral disturbance Qualified Code(s): F03.91 - Unspecified dementia with behavioral disturbance; F10.97 - Alcohol use, unspecified with alcohol- induced persisting dementia (3) Diabetes Code(s): E11.9 - TYPE 2 DIABETES MELLITUS WITHOUT COMPLICATIONS (4) Diarrhea Code(s): R19.7 - DIARRHEA, UNSPECIFIED Qualifiers: Diarrhea type: unspecified type Qualified Code(s): R19.7 - Diarrhea, unspecified (5) Renal failure Code(s): N19 - UNSPECIFIED KIDNEY FAILURE (6) GI (gastrointestinal bleed) Code(s): K92.2 - GASTROINTESTINAL HEMORRHAGE, UNSPECIFIED Assessment/Plan PLAN feeds started BP better monitor urine output Iv antibiotics-- Rocephin -- dc today as cultures are negative ' continue with meds may transfer to the floor P eval DVT prophylaxes- Lovenox
--- NOTE | 2016-09-07 13:20 | PN ---
Problem List - Problems (1) Dehydration Code(s): E86.0 - DEHYDRATION (2) Dementia Code(s): F03.90 - UNSPECIFIED DEMENTIA WITHOUT BEHAVIORAL DISTURBANCE Qualifiers: Dementia type: unspecified type Dementia behavioral disturbance: with behavioral disturbance Qualified Code(s): F03.91 - Unspecified dementia with behavioral disturbance; F10.97 - Alcohol use, unspecified with alcohol- induced persisting dementia (3) Diabetes Code(s): E11.9 - TYPE 2 DIABETES MELLITUS WITHOUT COMPLICATIONS (4) Diarrhea Code(s): R19.7 - DIARRHEA, UNSPECIFIED Qualifiers: Diarrhea type: unspecified type Qualified Code(s): R19.7 - Diarrhea, unspecified (5) Renal failure Code(s): N19 - UNSPECIFIED KIDNEY FAILURE (6) GI (gastrointestinal bleed) Code(s): K92.2 - GASTROINTESTINAL HEMORRHAGE, UNSPECIFIED (7) Protein-calorie malnutrition, moderate Assessment/Plan: requiring him to get Peg tube Code(s): E44.0 - MODERATE PROTEIN-CALORIE MALNUTRITION
--- NOTE | 2016-09-07 16:12 | PN ---
Progress Note (short form) - Note Progress Note: CC: unstable bradycardia S: Patient talking. Intermittently responds appropriately to questions. Doesn 't know what a hospital is. Current Medications Acetaminophen (Tylenol -) 650 mg PO Q4H PRN PRN Reason: FEVER OR PAIN Albuterol/Ipratropium (Duoneb -) 1 amp NEB Q6H PRN PRN Reason: SHORTNESS OF BREATH Amlodipine Besylate (Norvasc -) 5 mg PO DAILY [facility] Atorvastatin Calcium (Lipitor -) 20 mg PO HS [facility] Chlorhexidine Gluconate (Hibiclens For Decolonization -) 1 applic TP HS [facility] Donepezil HCl (Aricept -) 10 mg PO HS [facility] Enoxaparin Sodium (Lovenox -) 40 mg SQ DAILY [facility] Gabapentin (Neurontin -) 100 mg PO TID [facility] Last Admin: 09/07/16 13:11 Dose: 100 mg Insulin Aspart (Novolog Vial Sliding Scale -) 1 vial SQ Q6HPO [facility] PRN Reason: Protocol Metoclopramide HCl (Reglan Oral Solution -) 10 mg PO TIDAC [facility] Mupirocin (Bactroban Ointment (For Decolonization) -) 1 applic NS BID [facility] Stop: 09/10/16 21:59 Pantoprazole Sodium (Protonix 40mg Ivpb (Pre-Docked)) 40 mg IVPB BID [facility] Tamsulosin HCl (Flomax -) 0.4 mg PO DAILY@0830 [facility] Thiamine HCl (Vitamin B1 -) 100 mg PO DAILY [facility] Vital Signs - 24 hr 09/06/16 09/06/16 09/06/16 18:00 19:00 19:31 Temperature 99 F Pulse Rate 92 H 87 Respiratory 18 18 Rate Blood Pressure 131/63 126/62 O2 Sat by Pulse 98 Oximetry (%) 09/06/16 09/06/16 09/07/16 19:33 22:00 00:00 Temperature 98.6 F Pulse Rate 86 87 Respiratory 18 19 Rate Blood Pressure 125/52 124/69 O2 Sat by Pulse 98 Oximetry (%) 09/07/16 09/07/16 09/07/16 02:00 04:00 06:00 Temperature 98.6 F 98 F Pulse Rate 86 91 H 85 Respiratory 20 22 20 Rate Blood Pressure 172/80 126/61 128/70 O2 Sat by Pulse Oximetry (%) 09/07/16 09/07/16 09/07/16 08:00 09:00 10:00 Temperature 98 F Pulse Rate 88 Respiratory 18 18 Rate Blood Pressure 129/69 153/68 O2 Sat by Pulse 98 99 Oximetry (%) 09/07/16 09/07/16 12:00 14:00 Temperature Pulse Rate 88 89 Respiratory 18 20 Rate Blood Pressure 135/69 145/66 O2 Sat by Pulse Oximetry (%) Intake & Output 09/05/16 09/06/16 09/07/16 09/08/16 07:59 07:59 07:59 07:59 Intake Total 1999 2388 2052 158 Output Total 950 500 Balance 1999 1438 1552 158 Weight 151 lb 9 oz 153 lb 2 oz nad no jvd rrr s1s2 no mrg trace rales , poor effort (resisting exam) no le e/c/c abd nd pos bs pos dp pt no carotid bruits no jaundice diaphoresis awake, not communicative CBC, BMP 09/07/16 05:15 09/07/16 05:15 Laboratory Tests 09/07/16 09:55 Creatine Kinase 275 D Creatine Kinase Index 0.9 CK-MB (CK-2) 2.644 Troponin I 0.28 H D EKG 09/05: poor quality. sinus tachycardia, 121 bpm. right axis deviation. possible lvh. axis has changed and heart rate increased. otherwise similar. tele: sr zeeshan. pvc's, brief 3b nsvt cxr: no infiltrates echo here nl lv size/fn. rv not well seen. nl valves. 80yo male with h/o HTN, DM, hyperlipidemia, dementia, + rpr (recent tx), who initially presented on 08/27 for dehydration in the setting of diarrhea and poor po intake whose hosptial course now complicated by episode of bradycardia/ACLS. bradycardia - post peg tube placement per report HR down to 37 bpm. Unknown if patient was hemodynamically unstable at the time. --> agonal breathing --> intubation --> subsequent documented hypotension - Episode likely multifactorial - Increased vagal tone from sedation, GI manipulation or pain. Also may have contribution from hypoxia as well as electrolyte abnormalities. Patient had low k and mg at the time. - no further recurrence. would con't telemetry monitoring. Has had multiple recent admissions with no telemetry abnormalities, low suspicion that this is 2/ 2 underlying conduction disease. - avoid qt prolonging drugs when possible - aggressive electrolyte repletion. keep k > 4 or mg > 2. nstemi - likely demand in setting of bradycardic episode and then tachycardia to 120's/ hypotension. Likely has underlying CAD but would not pursue ischemic work up given comorbidities and frequent refusal to take medications. con't atorvastatin. can add asa if GI amenable. - no acute ischemic changes on ekg, echo unremarkable HTN - stable on current meds
[2016-09-07] MEDS: METOCLOPRAMIDE HCL 5 MG/5 ML UNIT DOSE CUP PO SCH (16:38)
[2016-09-07] MEDS ORDERED: INSULIN (NOVOLOG) ASPART 100 UNITS/ML 10ML VIAL ONE (18:13)
[2016-09-07] MEDS ORDERED: DONEPEZIL HCL 10 MG TABLET (FP) PO SCH (22:00)
[2016-09-07] MEDS ORDERED: ATORVASTATIN CA 20 MG TABLET (FP) PO SCH (22:00)
[2016-09-07] MEDS ORDERED: CHLORHEXIDINE GLUCONATE 4% CLEANSER FOR DECOLONIZATION TP SCH (22:00)
[2016-09-08] MEDS: INSULIN SLIDING SCALE (NOVOLOG) 1 VIAL SQ SCH ×5 (00:18→17:41)
[2016-09-08] MEDS: GABAPENTIN 100 MG CAPSULE (FP) PO SCH ×3 (06:26→21:36)
[2016-09-08] MEDS: METOCLOPRAMIDE HCL 5 MG/5 ML UNIT DOSE CUP PO SCH ×3 (06:26→17:05)
[2016-09-08 06:55] LABS: CALCIUM 8.2 mg/dL (8.5-10.1); COCKROFT - GAULT 81.77; CREATININE 0.7 mg/dL (0.7-1.3); MAGNESIUM 1.9 mg/dL (1.8-2.4)
[2016-09-08] MEDS ORDERED: TAMSULOSIN HCL 0.4 MG CAP.ER.24H (FP) PO SCH (08:30)
[2016-09-08] MEDS: MUPIROCIN 2% TOPICAL OINTMENT FOR DECOLONIZATION NS SCH ×2 (09:26→21:34)
[2016-09-08] MEDS: PANTOPRAZOLE SODIUM 40 MG/100 ML PRE-DOCKED IVPB SCH ×2 (09:27→21:36)
[2016-09-08] MEDS ORDERED: ENOXAPARIN NA (PORCINE) 40 MG/0.4 ML DISP.SYRIN SQ SCH (10:00)
[2016-09-08] MEDS ORDERED: amLODIPine BESYLATE 5 MG TABLET (FP) PO SCH (10:00)
[2016-09-08] MEDS ORDERED: CEFTRIAXONE 50 ML IVPB SCH (10:00)
[2016-09-08] MEDS ORDERED: THIAMINE HCL 100 MG TABLET (FP) PO SCH (10:00)
[2016-09-08] MEDS ORDERED: PT OWN MED DRAWER 7, Y5N ONE ×2 (11:26→17:05)
--- NOTE | 2016-09-08 12:51 | PN ---
Teaching Attending Note Name of Resident: Aleyda Kessler ATTENDING PHYSICIAN STATEMENT I saw and evaluated the patient. I reviewed the resident's note and discussed the case with the resident. I agree with the resident's findings and plan as documented. SUBJECTIVE: Pt seen and examined in the ICU. No events overnight. No fevers recorded. Tolerating feeds. OBJECTIVE: Last Vital Signs Temp Pulse Resp BP Pulse Ox 98.6 F 89 20 150/76 95 09/08/16 10:00 09/08/16 12:00 09/08/16 12:00 09/08/16 12:00 09/08/16 09:00 Intake & Output 09/05/16 09/06/16 09/07/16 09/08/16 23:59 23:59 23:59 23:59 Intake Total 1464 2044 1090 1072 Output Total 700 450 300 Balance 764 5378 330 0485 Weight 153 lb 1.6 oz 151 lb 9 oz 153 lb 2 oz 154 lb Gen: NAD at rest Heart: RRR Lung: decreased breath sounds at the bases Abd: soft, nontender Ext: no edema CBC, BMP 09/07/16 05:15 09/08/16 05:10 Active Medications Acetaminophen (Tylenol -) 650 mg PO Q4H PRN PRN Reason: FEVER OR PAIN Albuterol/Ipratropium (Duoneb -) 1 amp NEB Q6H PRN PRN Reason: SHORTNESS OF BREATH Amlodipine Besylate (Norvasc -) 5 mg PO DAILY [facility] Last Admin: 09/08/16 09:26 Dose: 5 mg Atorvastatin Calcium (Lipitor -) 20 mg PO HS [facility] Last Admin: 09/07/16 21:36 Dose: 20 mg Chlorhexidine Gluconate (Hibiclens For Decolonization -) 1 applic TP HS [facility] Last Admin: 09/07/16 21:25 Dose: 1 applic Donepezil HCl (Aricept -) 10 mg PO HS [facility] Last Admin: 09/07/16 21:36 Dose: 10 mg Enoxaparin Sodium (Lovenox -) 40 mg SQ DAILY [facility] Last Admin: 09/08/16 09:26 Dose: 40 mg Gabapentin (Neurontin -) 100 mg PO TID [facility] Last Admin: 09/08/16 06:26 Dose: 100 mg Insulin Aspart (Novolog Vial Sliding Scale -) 1 vial SQ Q6HPO [facility] PRN Reason: Protocol Last Admin: 09/08/16 11:27 Dose: 4 unit Metoclopramide HCl (Reglan Oral Solution -) 10 mg PO TIDAC [facility] Last Admin: 09/08/16 11:27 Dose: 10 mg Mupirocin (Bactroban Ointment (For Decolonization) -) 1 applic NS BID [facility] Stop: 09/10/16 21:59 Last Admin: 09/08/16 09:26 Dose: 1 applic Pantoprazole Sodium (Protonix 40mg Ivpb (Pre-Docked)) 40 mg IVPB BID [facility] Last Admin: 09/08/16 09:27 Dose: 40 mg Tamsulosin HCl (Flomax -) 0.4 mg PO DAILY@0830 [facility] Last Admin: 09/08/16 09:26 Dose: 0.4 mg Thiamine HCl (Vitamin B1 -) 100 mg PO DAILY [facility] Last Admin: 09/08/16 09:26 Dose: 100 mg ASSESSMENT AND PLAN: s/p Acute Respiratory Failure Bradycardia s/p PEG placement Acute NSTEMI HTN DM Dementia - ASA, statin - continue enteral feeds - monitor lytes - O2 to keep SPo2 >90% - aspiration precautions - DVT/GI prophylaxis - can monitor on telemetry
--- NOTE | 2016-09-08 14:28 | PN ---
Progress Note (short form) - Note Progress Note: pt seen earlier today in the ICU Chart reviewed comfortable No distress Afebrile tolerating feeding Vital Signs Temp 98.6 F 09/08/16 10:00 Pulse 90 09/08/16 14:00 Resp 18 09/08/16 14:00 BP 135/83 09/08/16 14:00 Pulse Ox 95 09/08/16 09:00 Intake & Output 09/07/16 09/08/16 09/08/16 23:59 11:59 23:59 Intake Total 158 1072 Balance 158 1072 Weight 154 lb Intake: IV 158 Diprivan - 20 ml UD . [address]STK-MED ONE Rx#: [id number] IVPB 100 Tube Feeding 612 Tube Irrigant 360 Other: Voiding Method Incontinent Incontinent # Unmeasured Voids Hobbs 1 Bowel Movement Yes # Bowel Movements 1 Weight Measurement Method Built in [facility] Active Medications Acetaminophen (Tylenol -) 650 mg PO Q4H PRN PRN Reason: FEVER OR PAIN Albuterol/Ipratropium (Duoneb -) 1 amp NEB Q6H PRN PRN Reason: SHORTNESS OF BREATH Amlodipine Besylate (Norvasc -) 5 mg PO DAILY [facility] Last Admin: 09/08/16 09:26 Dose: 5 mg Atorvastatin Calcium (Lipitor -) 20 mg PO [facility] Last Admin: 09/07/16 21:36 Dose: 20 mg Chlorhexidine Gluconate (Hibiclens For Decolonization -) 1 applic TP [facility] Last Admin: 09/07/16 21:25 Dose: 1 applic Donepezil HCl (Aricept -) 10 mg PO [facility] Last Admin: 09/07/16 21:36 Dose: 10 mg Enoxaparin Sodium (Lovenox -) 40 mg SQ DAILY [facility] Last Admin: 09/08/16 09:26 Dose: 40 mg Gabapentin (Neurontin -) 100 mg PO TID [facility] Last Admin: 09/08/16 13:39 Dose: 100 mg Insulin Aspart (Novolog Vial Sliding Scale -) 1 vial SQ Q6HPO [facility] PRN Reason: Protocol Last Admin: 09/08/16 11:27 Dose: 4 unit Metoclopramide HCl (Reglan Oral Solution -) 10 mg PO TIDAC [facility] Last Admin: 09/08/16 11:27 Dose: 10 mg Mupirocin (Bactroban Ointment (For Decolonization) -) 1 applic NS BID [facility] Stop: 09/10/16 21:59 Last Admin: 09/08/16 09:26 Dose: 1 applic Pantoprazole Sodium (Protonix 40mg Ivpb (Pre-Docked)) 40 mg IVPB BID [facility] Last Admin: 09/08/16 09:27 Dose: 40 mg Tamsulosin HCl (Flomax -) 0.4 mg PO DAILY@0830 [facility] Last Admin: 09/08/16 09:26 Dose: 0.4 mg Thiamine HCl (Vitamin B1 -) 100 mg PO DAILY [facility] Last Admin: 09/08/16 09:26 Dose: 100 mg CBC, BMP 09/07/16 05:15 09/08/16 05:10 Physical exam Constitutional: Yes: No Distress/comfortable/poor historian Cardiovascular: Yes: Regular Rate and Rhythm Respiratory: Yes: Diminished at bases Gastrointestinal: Yes: Normal Bowel Sounds, Soft, Other (peg+). Edema: No Problem List - Problems (1) Dehydration Code(s): E86.0 - DEHYDRATION (2) Dementia Code(s): F03.90 - UNSPECIFIED DEMENTIA WITHOUT BEHAVIORAL DISTURBANCE Qualifiers: Dementia type: unspecified type Dementia behavioral disturbance: with behavioral disturbance Qualified Code(s): F03.91 - Unspecified dementia with behavioral disturbance; F10.97 - Alcohol use, unspecified with alcohol- induced persisting dementia (3) Diabetes Code(s): E11.9 - TYPE 2 DIABETES MELLITUS WITHOUT COMPLICATIONS (4) Diarrhea Code(s): R19.7 - DIARRHEA, UNSPECIFIED Qualifiers: Diarrhea type: unspecified type Qualified Code(s): R19.7 - Diarrhea, unspecified (5) Renal failure Code(s): N19 - UNSPECIFIED KIDNEY FAILURE (6) GI (gastrointestinal bleed) Code(s): K92.2 - GASTROINTESTINAL HEMORRHAGE, UNSPECIFIED Assessment/Plan Clinically stable Continue present care Meds reviewed May transfer to telemetry We will follow
--- NOTE | 2016-09-08 16:29 | PN ---
Physical Exam: SUBJECTIVE: Patient seen and examined, sleeping in bed. OBJECTIVE: Vital Signs Period Temp Pulse Resp BP Sys/Farias Pulse Ox Last 24 Hr 97.6 F-98.6 F 89-116 11-27 119-159/65-98 95-95 GENERAL: The patient sleeping in no acute distress. HEAD: Normal with no signs of trauma. EYES: sclera anicteric. pupils constricted, jasbir NECK: Trachea midline, no LAD LUNGS: Breath sounds equal, clear to auscultation bilaterally, no wheezes, no crackles, no accessory muscle use. HEART: Regular rate and rhythm, S1, S2 without murmur ABDOMEN: Soft, nontender, nondistended, normoactive bowel sounds. PEG in places , functioning properly without leakage. NEURO: facial symmetry, lethargic, did not follow commands, stayed asleep during examination EXTREMITIES: 2+ pulses, warm, well-perfused, no edema. Laboratory Results - last 24 hr 09/07/16 09/08/16 09/08/16 17:13 00:15 05:10 Sodium 137 Potassium 4.7 Chloride 99 Carbon Dioxide 31 Anion Gap 7 L BUN 8 Creatinine 0.7 POC Glucometer [phone] Random Glucose 144 H Calcium 8.2 L Magnesium 1.9 09/08/16 09/08/16 05:57 11:21 Sodium Potassium Chloride Carbon Dioxide Anion Gap BUN Creatinine POC Glucometer [phone] Random Glucose Calcium Magnesium Active Medications Generic Name Dose Route Start Last Admin Trade Name Freq PRN Reason Stop Dose Admin Acetaminophen 650 mg 09/07/16 12:19 Tylenol - PO Q4H PRN FEVER OR PAIN Albuterol/Ipratropium 1 amp 09/07/16 12:19 Duoneb - NEB Q6H PRN SHORTNESS OF BREATH Amlodipine Besylate 5 mg 09/08/16 10:00 09/08/16 09:26 Norvasc - PO 5 mg DAILY KATHRYN Administration Atorvastatin Calcium 20 mg 09/07/16 22:00 09/07/16 21:36 Lipitor - PO 20 mg HS KATHRYN Administration Chlorhexidine Gluconate 1 applic 09/07/16 22:00 09/07/16 21:25 Hibiclens For Decolonization - TP 1 applic HS KATHRYN Administration Donepezil HCl 10 mg 09/07/16 22:00 09/07/16 21:36 Aricept - PO 10 mg HS KATHRYN Administration Enoxaparin Sodium 40 mg 09/08/16 10:00 09/08/16 09:26 Lovenox - SQ 40 mg DAILY KATHRYN Administration Gabapentin 100 mg 09/07/16 14:00 09/08/16 13:39 Neurontin - PO 100 mg TID KATHRYN Administration Insulin Aspart 1 vial 09/07/16 18:00 09/08/16 11:27 Novolog Vial Sliding Scale - SQ 4 unit Q6HPO [facility] Administration Protocol Metoclopramide HCl 10 mg 09/07/16 16:30 09/08/16 11:27 Reglan Oral Solution - PO 10 mg TIDAC [facility] Administration Mupirocin 1 applic 09/07/16 22:00 09/08/16 09:26 Bactroban Ointment (For Decolonization) - NS 09/10/16 21:59 1 applic BID KATHRYN Administration Pantoprazole Sodium 40 mg 09/07/16 22:00 09/08/16 09:27 Protonix 40mg Ivpb (Pre-Docked) IVPB 40 mg BID KATHRYN Administration Tamsulosin HCl 0.4 mg 09/08/16 08:30 09/08/16 09:26 Flomax - PO 0.4 mg DAILY@0830 [facility] Administration Thiamine HCl 100 mg 09/08/16 10:00 09/08/16 09:26 Vitamin B1 - PO 100 mg DAILY KATHRYN Administration Active Medications Acetaminophen (Tylenol -) 650 mg PO Q4H PRN PRN Reason: FEVER OR PAIN Albuterol/Ipratropium (Duoneb -) 1 amp NEB Q6H PRN PRN Reason: SHORTNESS OF BREATH Amlodipine Besylate (Norvasc -) 5 mg PO DAILY [facility] Atorvastatin Calcium (Lipitor -) 20 mg PO HS [facility] Chlorhexidine Gluconate (Hibiclens For Decolonization -) 1 applic TP HS KATHRYN Donepezil HCl (Aricept -) 10 mg PO HS [facility] Enoxaparin Sodium (Lovenox -) 40 mg SQ DAILY [facility] Gabapentin (Neurontin -) 100 mg PO TID [facility] Insulin Aspart (Novolog Vial Sliding Scale -) 1 vial SQ Q6HPO [facility] PRN Reason: Protocol Last Admin: 09/08/16 17:41 Dose: Not Given Metoclopramide HCl (Reglan Oral Solution -) 10 mg PO T[facility]AC [facility] Mupirocin (Bactroban Ointment (For Decolonization) -) 1 applic NS BID [facility] Stop: 09/10/16 21:59 Pantoprazole Sodium (Protonix 40mg Ivpb (Pre-Docked)) 40 mg IVPB BID [facility] Tamsulosin HCl (Flomax -) 0.4 mg PO DAILY@0830 [facility] Thiamine HCl (Vitamin B1 -) 100 mg PO DAILY [facility] ASSESSMENT/PLAN: 80 yr old man with Dementia, HTN, HLD, DM, CKD BIBEMS for continous diarrhea due to laxative overdose and recurrent falls admitted to ICU due to bradycardia/ hypoxia post-peg tube placement in PACU. Pulmonary - respiratory status improved, s/p extubation - comfortable on room air, nasal cannula prn, maintain sat >90% - duonebs q6hr prn - elevate HOB, aspiration precautions Cardiovascular - BP and HR unstable, 24hr range 119-159/65-98, HR 89-116 - norvasc 5mg po qdaily - maintain magnesium >2.0, K+>4 -- magnesium 400mg po qd - avoid QT prolonging meds - Acute NSTEMI likely due to demand, appreciate cardiology consult Dr. Taylor - lipitor 10mg po HS - to consider ASA with GI, pt has hs of rectal bleed GI - s/p PEG tube placement - tolerating enteral feeds well - Glucerna volume based feed protocol --- titrate to 51cc/hr from 30, target volume 1,233/24hr --- supervisor machine workers following - GI consulted; Dr. Paula - reglan 10mg po TIDAC Endocrine - DM II - NISS, BGM q6hr Neurological - Dementia - jose ramon as directed for patient safety - donepizel 10mg po HS - neuropathy; gabapentin 100mg po tid Renal - flomax 0.4mg po daily #DVT: lovenox 40subq qd Diet: enteral feeds Visit type - Emergency Visit Emergency Visit: No - New Patient This patient is new to me today: Yes Date on this admission: 09/08/16 - Critical Care Critical Care patient: Yes Total Critical Care Time (in minutes): 45 Critical Care Statement: The care of this patient involved high complexity decision making to prevent further life threatening deterioration of the patient 's condition and/or to evalute & treat vital organ system(s) failure or risk of failure.
--- NOTE | 2016-09-08 16:42 | PN ---
Progress Note (short form) - Note Progress Note: CC: unstable bradycardia S: Patient appears comfortable. no events. minimal communication. Current Medications Acetaminophen (Tylenol -) 650 mg PO Q4H PRN PRN Reason: FEVER OR PAIN Albuterol/Ipratropium (Duoneb -) 1 amp NEB Q6H PRN PRN Reason: SHORTNESS OF BREATH Amlodipine Besylate (Norvasc -) 5 mg PO DAILY [facility] Last Admin: 09/08/16 09:26 Dose: 5 mg Atorvastatin Calcium (Lipitor -) 20 mg PO [facility] Last Admin: 09/07/16 21:36 Dose: 20 mg Chlorhexidine Gluconate (Hibiclens For Decolonization -) 1 applic TP [facility] Last Admin: 09/07/16 21:25 Dose: 1 applic Donepezil HCl (Aricept -) 10 mg PO [facility] Last Admin: 09/07/16 21:36 Dose: 10 mg Enoxaparin Sodium (Lovenox -) 40 mg SQ DAILY [facility] Last Admin: 09/08/16 09:26 Dose: 40 mg Gabapentin (Neurontin -) 100 mg PO TID [facility] Last Admin: 09/08/16 13:39 Dose: 100 mg Insulin Aspart (Novolog Vial Sliding Scale -) 1 vial SQ Q6HPO [facility] PRN Reason: Protocol Last Admin: 09/08/16 11:27 Dose: 4 unit Metoclopramide HCl (Reglan Oral Solution -) 10 mg PO TIDAC [facility] Last Admin: 09/08/16 11:27 Dose: 10 mg Mupirocin (Bactroban Ointment (For Decolonization) -) 1 applic NS BID [facility] Stop: 09/10/16 21:59 Last Admin: 09/08/16 09:26 Dose: 1 applic Pantoprazole Sodium (Protonix 40mg Ivpb (Pre-Docked)) 40 mg IVPB BID [facility] Last Admin: 09/08/16 09:27 Dose: 40 mg Tamsulosin HCl (Flomax -) 0.4 mg PO DAILY@0830 [facility] Last Admin: 09/08/16 09:26 Dose: 0.4 mg Thiamine HCl (Vitamin B1 -) 100 mg PO DAILY [facility] Last Admin: 09/08/16 09:26 Dose: 100 mg Vital Signs - 24 hr 09/07/16 09/07/16 09/07/16 18:00 20:00 20:14 Temperature Pulse Rate 106 H 116 H Respiratory 20 27 H Rate Blood Pressure 146/75 149/73 O2 Sat by Pulse 95 Oximetry (%) 09/07/16 09/07/16 09/08/16 20:15 22:00 00:00 Temperature 98 F Pulse Rate 90 91 H Respiratory 27 H 27 H 11 L Rate Blood Pressure 119/65 133/87 O2 Sat by Pulse 95 Oximetry (%) 09/08/16 09/08/16 09/08/16 02:00 04:00 06:00 Temperature 97.6 F 98 F Pulse Rate 89 91 H 90 Respiratory 17 18 16 Rate Blood Pressure 128/68 151/79 143/98 O2 Sat by Pulse Oximetry (%) 09/08/16 09/08/16 09/08/16 08:00 09:00 10:00 Temperature 98.6 F Pulse Rate 99 H 98 H Respiratory 14 18 Rate Blood Pressure 139/79 159/80 O2 Sat by Pulse 95 Oximetry (%) 09/08/16 09/08/16 12:00 14:00 Temperature Pulse Rate 89 90 Respiratory 20 18 Rate Blood Pressure 150/76 135/83 O2 Sat by Pulse Oximetry (%) Intake & Output 09/06/16 09/07/16 09/08/16 09/09/16 07:59 07:59 07:59 07:59 Intake Total 2388 2052 1230 Output Total 950 500 Balance 1438 1552 1230 Weight 151 lb 9 oz 153 lb 2 oz 154 lb nad no jvd rrr s1s2 no mrg trace rales , poor effort (resisting exam) no le e/c/c abd nd pos bs pos dp pt no carotid bruits no jaundice diaphoresis awake, not communicative CBC, BMP 09/07/16 05:15 09/08/16 05:10 Laboratory Tests 09/08/16 05:10 Magnesium 1.9 EKG 09/05: poor quality. sinus tachycardia, 121 bpm. right axis deviation. possible lvh. axis has changed and heart rate increased. otherwise similar. tele: sr. rare pvc's cxr: no infiltrates echo here nl lv size/fn. rv not well seen. nl valves. 80yo male with h/o HTN, DM, hyperlipidemia, dementia, + rpr (recent tx), who initially presented on 08/27 for dehydration in the setting of diarrhea and poor po intake whose hosptial course now complicated by episode of bradycardia/ACLS. bradycardia - post peg tube placement per report HR down to 37 bpm. Unknown if patient was hemodynamically unstable at the time. --> agonal breathing --> intubation --> subsequent documented hypotension - Episode likely multifactorial - Increased vagal tone from sedation, GI manipulation or pain. Also may have contribution from hypoxia as well as electrolyte abnormalities. Patient had low k and mg at the time. - no further recurrence. would con't telemetry monitoring. Has had multiple recent admissions with no telemetry abnormalities, low suspicion that this is 2/ 2 underlying conduction disease. - avoid qt prolonging drugs when possible - aggressive electrolyte repletion. keep k > 4 or mg > 2. nstemi - likely demand in setting of bradycardic episode and then tachycardia to 120's/ hypotension. Likely has underlying CAD but would not pursue ischemic work up given comorbidities and frequent refusal to take medications. con't atorvastatin. can add asa if GI amenable. - no acute ischemic changes on ekg, echo unremarkable HTN - stable on current meds
[2016-09-08] MEDS ORDERED: ACETAMINOPHEN 325 MG TABLET (FP) PO PRN (17:29)
[2016-09-08] MEDS ORDERED: ALBUTEROL SO4 2.5/IPRATROPIUM 0.5 INH SOL 3 ML VIAL.NEB. NEB PRN (17:29)
[2016-09-08] MEDS: DONEPEZIL HCL 10 MG TABLET (FP) PO SCH (21:34)
[2016-09-08] MEDS: ATORVASTATIN CA 20 MG TABLET (FP) PO SCH (21:35)
[2016-09-08] MEDS: CHLORHEXIDINE GLUCONATE 4% CLEANSER FOR DECOLONIZATION TP SCH (21:35)
[2016-09-09] MEDS: INSULIN SLIDING SCALE (NOVOLOG) 1 VIAL SQ SCH ×5 (00:26→23:07)
[2016-09-09] MEDS: GABAPENTIN 100 MG CAPSULE (FP) PO SCH ×3 (06:00→22:49)
[2016-09-09] MEDS: METOCLOPRAMIDE HCL 5 MG/5 ML UNIT DOSE CUP PO SCH ×3 (06:12→17:45)
--- NOTE | 2016-09-09 08:23 | PN ---
Progress Note, Physician Chief Complaint: bradycardic arrest History of Present Illness: meaningless responses to questions appears comfortable, sleepy but easily arousable - Current Medication List Current Medications: Active Medications Acetaminophen (Tylenol -) 650 mg PO Q4H PRN PRN Reason: FEVER OR PAIN Albuterol/Ipratropium (Duoneb -) 1 amp NEB Q6H PRN PRN Reason: SHORTNESS OF BREATH Amlodipine Besylate (Norvasc -) 5 mg PO DAILY [facility] Atorvastatin Calcium (Lipitor -) 20 mg PO [facility] Last Admin: 09/08/16 21:35 Dose: 20 mg Chlorhexidine Gluconate (Hibiclens For Decolonization -) 1 applic TP [facility] Last Admin: 09/08/16 21:35 Dose: Not Given Donepezil HCl (Aricept -) 10 mg PO [facility] Last Admin: 09/08/16 21:34 Dose: 10 mg Enoxaparin Sodium (Lovenox -) 40 mg SQ DAILY [facility] Gabapentin (Neurontin -) 100 mg PO TID [facility] Last Admin: 09/09/16 06:00 Dose: 100 mg Insulin Aspart (Novolog Vial Sliding Scale -) 1 vial SQ Q6HPO [facility] PRN Reason: Protocol Last Admin: 09/09/16 06:01 Dose: 2 units Metoclopramide HCl (Reglan Oral Solution -) 10 mg PO TIDAC [facility] Last Admin: 09/09/16 06:12 Dose: Not Given Mupirocin (Bactroban Ointment (For Decolonization) -) 1 applic NS BID [facility] Stop: 09/10/16 21:59 Last Admin: 09/08/16 21:34 Dose: Not Given Pantoprazole Sodium (Protonix 40mg Ivpb (Pre-Docked)) 40 mg IVPB BID [facility] Last Admin: 09/08/16 21:36 Dose: 40 mg Tamsulosin HCl (Flomax -) 0.4 mg PO DAILY@0830 [facility] Thiamine HCl (Vitamin B1 -) 100 mg PO DAILY [facility] - Objective Vital Signs: Vital Signs Temperature 98.3 F 09/09/16 05:17 Pulse Rate 85 09/09/16 05:17 Respiratory Rate 20 09/09/16 05:17 Blood Pressure 121/67 09/09/16 05:17 O2 Sat by Pulse Oximetry (%) 98 09/08/16 22:00 Constitutional: Yes: Well Nourished, No Distress, Calm Cardiovascular: Yes: Regular Rate and Rhythm, S1, S2. No: JVD, Gallop, Murmur Respiratory: Yes: Regular, CTA Bilaterally (not deep breaths for exam). No: Accessory Muscle Use, Rales, Wheezes Extremities: No: Cold Edema: No Neurological: Yes: Alert. No: Seizure Psychiatric: No: Agitated Labs: CBC, BMP 09/07/16 05:15 09/08/16 05:10 INR, PTT INR 1.13 (0.82-1.09) 09/04/16 20:20 - ....Imaging EKG: Other (tele: NSR, no etelvina) Assessment/Plan EKG 09/05: poor quality. sinus tachycardia, 121 bpm. right axis deviation. possible lvh. axis has changed and heart rate increased. otherwise similar. tele: sr. rare pvc's Echo here nl lv size/fn. rv not well seen. nl valves. 80yo male with h/o HTN, DM, hyperlipidemia, dementia, + rpr (recent tx), who initially presented on 08/27 for dehydration in the setting of diarrhea and poor po intake whose hosptial course now complicated by episode of bradycardia/ACLS. bradycardia - post peg tube placement per report HR down to 37 bpm. Unknown if patient was hemodynamically unstable at the time. --> agonal breathing --> intubation --> subsequent documented hypotension - Episode likely multifactorial - Increased vagal tone from sedation, GI manipulation or pain. Also may have contribution from hypoxia as well as electrolyte abnormalities. Patient had low k and mg at the time. - no further recurrence. would con't telemetry monitoring. Has had multiple recent admissions with no telemetry abnormalities, low suspicion that this is 2/ 2 underlying conduction disease. - if no further etelvina once acute triggers have resolved, there is no apparent indication for PPM Type II IA (NSTEMI): -qglp-rib-ovyb pattern, trop peak at 1.1, no acute ecg changes per notes -normal LV fxn on echo -secondary to coronary hypoperfusion from bradycardia episode with hypotension. -may have underlying chronic/stable CAD but would not pursue ischemic work up given comorbidities and frequent refusal to take medications (hence not a candidate for PCI and mandatory DAPT) -medical mgmt: con't atorvastatin. start ASA (4d s/p PEG, H/H stable); no bb (s/ p etelvina arrest) HTN - stable on current meds failure to thrive, hypovolemia, CODY: -renal fxn normalized s/p nutritional support/IVF here -s/p PEG now
[2016-09-09] MEDS: TAMSULOSIN HCL 0.4 MG CAP.ER.24H (FP) PO SCH (08:58)
[2016-09-09] MEDS: MUPIROCIN 2% TOPICAL OINTMENT FOR DECOLONIZATION NS SCH ×2 (09:42→22:29)
[2016-09-09] MEDS: ENOXAPARIN NA (PORCINE) 40 MG/0.4 ML DISP.SYRIN SQ SCH (09:42)
[2016-09-09] MEDS: ASPIRIN COATED 81 MG TABLET.EC PO SCH (09:42)
[2016-09-09] MEDS: amLODIPine BESYLATE 5 MG TABLET (FP) PO SCH (09:43)
[2016-09-09] MEDS: PANTOPRAZOLE SODIUM 40 MG/100 ML PRE-DOCKED IVPB SCH ×2 (09:43→22:49)
[2016-09-09] MEDS: THIAMINE HCL 100 MG TABLET (FP) PO SCH (09:43)
--- NOTE | 2016-09-09 11:38 | PN ---
Progress Note (short form) - Note Progress Note: pt seen/ examined comfortable no distress afebrile Vital Signs Temp 98.3 F 09/09/16 05:17 Pulse 85 09/09/16 05:17 Resp 20 09/09/16 05:17 BP 121/67 09/09/16 05:17 Pulse Ox 98 09/08/16 22:00 Intake & Output 09/08/16 09/08/16 09/09/16 11:59 23:59 11:59 Intake Total 1072 1072 800 Balance 1072 1072 800 Weight 154 lb Intake: IVPB 100 100 Tube Feeding 612 612 500 Tube Irrigant 360 360 300 Other: Voiding Method Incontinent Incontinent Incontinent # Unmeasured Voids Void 2 Hobbs 1 2 2 Bowel Movement Yes Yes Yes # Bowel Movements 1 1 Weight Measurement Method Built in [facility] Active Medications Acetaminophen (Tylenol -) 650 mg PO Q4H PRN PRN Reason: FEVER OR PAIN Albuterol/Ipratropium (Duoneb -) 1 amp NEB Q6H PRN PRN Reason: SHORTNESS OF BREATH Amlodipine Besylate (Norvasc -) 5 mg PO DAILY [facility] Last Admin: 09/09/16 09:43 Dose: 5 mg Aspirin (Ecotrin -) 81 mg PO DAILY [facility] Last Admin: 09/09/16 09:42 Dose: 81 mg Atorvastatin Calcium (Lipitor -) 20 mg PO [facility] Last Admin: 09/08/16 21:35 Dose: 20 mg Chlorhexidine Gluconate (Hibiclens For Decolonization -) 1 applic TP [facility] Last Admin: 09/08/16 21:35 Dose: Not Given Donepezil HCl (Aricept -) 10 mg PO [facility] Last Admin: 09/08/16 21:34 Dose: 10 mg Enoxaparin Sodium (Lovenox -) 40 mg SQ DAILY [facility] Last Admin: 09/09/16 09:42 Dose: 40 mg Gabapentin (Neurontin -) 100 mg PO TID [facility] Last Admin: 09/09/16 06:00 Dose: 100 mg Insulin Aspart (Novolog Vial Sliding Scale -) 1 vial SQ Q6HPO [facility] PRN Reason: Protocol Last Admin: 09/09/16 06:01 Dose: 2 units Metoclopramide HCl (Reglan Oral Solution -) 10 mg PO TIDAC [facility] Last Admin: 09/09/16 06:12 Dose: Not Given Mupirocin (Bactroban Ointment (For Decolonization) -) 1 applic NS BID [facility] Stop: 09/10/16 21:59 Last Admin: 09/09/16 09:42 Dose: Not Given Pantoprazole Sodium (Protonix 40mg Ivpb (Pre-Docked)) 40 mg IVPB BID [facility] Last Admin: 09/09/16 09:43 Dose: 40 mg Tamsulosin HCl (Flomax -) 0.4 mg PO DAILY@0830 [facility] Last Admin: 09/09/16 08:58 Dose: 0.4 mg Thiamine HCl (Vitamin B1 -) 100 mg PO DAILY [facility] Last Admin: 09/09/16 09:43 Dose: 100 mg Physical exam Constitutional: Yes: No Distress/comfortable/poor historian Cardiovascular: Yes: Regular Rate and Rhythm Respiratory: Yes: Diminished at bases Gastrointestinal: Yes: Normal Bowel Sounds, Soft, Other (peg+). Edema: No Neuro -- Awake CBC, BMP 09/07/16 05:15 09/08/16 05:10 a/p stable tolerating diet continue present care d/c tele- if ok with cardiology d/c planning anticipate on sunday if stable Problem List - Problems (1) Dehydration Code(s): E86.0 - DEHYDRATION (2) Dementia Code(s): F03.90 - UNSPECIFIED DEMENTIA WITHOUT BEHAVIORAL DISTURBANCE Qualifiers: Dementia type: unspecified type Dementia behavioral disturbance: with behavioral disturbance Qualified Code(s): F03.91 - Unspecified dementia with behavioral disturbance; F10.97 - Alcohol use, unspecified with alcohol- induced persisting dementia (3) Diabetes Code(s): E11.9 - TYPE 2 DIABETES MELLITUS WITHOUT COMPLICATIONS (4) Failure to thrive Code(s): REB6257 - (5) HTN (hypertension) Code(s): I10 - ESSENTIAL (PRIMARY) HYPERTENSION
--- NOTE | 2016-09-09 12:51 | PN ---
Progress Note (short form) - Note Progress Note: PULMONARY VSS/AFEBRILE RESTING COMFORTABLY ANICTERIC DISTANT BUT CLEAR B/L ANTERIOR BREATH SOUNDS S1S2 BS+ PEG IN PLACE SCD"S B/L LABS/MEDS/NOTES/IMAGING REVIEWED ASSESSMENT AND PLAN: s/p Acute Respiratory Failure Bradycardia s/p PEG placement Acute NSTEMI HTN DM Dementia - ASA, statin - continue enteral feeds - monitor lytes - O2 to keep SPo2 >90% - aspiration precautions - DVT/GI prophylaxis - can monitor on telemetry Clive CARDENAS MD
[2016-09-09] MEDS: CHLORHEXIDINE GLUCONATE 4% CLEANSER FOR DECOLONIZATION TP SCH (22:29)
[2016-09-09] MEDS: ATORVASTATIN CA 20 MG TABLET (FP) PO SCH (22:49)
[2016-09-09] MEDS: DONEPEZIL HCL 10 MG TABLET (FP) PO SCH (22:49)
[2016-09-10] MEDS: GABAPENTIN 100 MG CAPSULE (FP) PO SCH ×3 (05:23→21:52)
[2016-09-10] MEDS: INSULIN SLIDING SCALE (NOVOLOG) 1 VIAL SQ SCH ×4 (05:57→23:33)
[2016-09-10] MEDS: METOCLOPRAMIDE HCL 5 MG/5 ML UNIT DOSE CUP PO SCH ×3 (06:00→15:41)
--- NOTE | 2016-09-10 09:57 | PN ---
Progress Note, Physician Chief Complaint: etelvina arrest History of Present Illness: not meaningfully communicative opens eyes to voice - Current Medication List Current Medications: Active Medications Acetaminophen (Tylenol -) 650 mg PO Q4H PRN PRN Reason: FEVER OR PAIN Albuterol/Ipratropium (Duoneb -) 1 amp NEB Q6H PRN PRN Reason: SHORTNESS OF BREATH Amlodipine Besylate (Norvasc -) 5 mg PO DAILY [facility] Last Admin: 09/09/16 09:43 Dose: 5 mg Aspirin (Ecotrin -) 81 mg PO DAILY [facility] Last Admin: 09/09/16 09:42 Dose: 81 mg Atorvastatin Calcium (Lipitor -) 20 mg PO [facility] Last Admin: 09/09/16 22:49 Dose: 20 mg Chlorhexidine Gluconate (Hibiclens For Decolonization -) 1 applic TP HS [facility] Last Admin: 09/09/16 22:29 Dose: Not Given Donepezil HCl (Aricept -) 10 mg PO [facility] Last Admin: 09/09/16 22:49 Dose: 10 mg Enoxaparin Sodium (Lovenox -) 40 mg SQ DAILY [facility] Last Admin: 09/09/16 09:42 Dose: 40 mg Gabapentin (Neurontin -) 100 mg PO TID [facility] Last Admin: 09/10/16 05:23 Dose: 100 mg Insulin Aspart (Novolog Vial Sliding Scale -) 1 vial SQ Q6HPO [facility] PRN Reason: Protocol Last Admin: 09/10/16 05:57 Dose: 2 units Metoclopramide HCl (Reglan Oral Solution -) 10 mg PO TIDAC [facility] Last Admin: 09/10/16 06:00 Dose: 10 mg Mupirocin (Bactroban Ointment (For Decolonization) -) 1 applic NS BID [facility] Stop: 09/10/16 21:59 Last Admin: 09/09/16 22:29 Dose: Not Given Pantoprazole Sodium (Protonix 40mg Ivpb (Pre-Docked)) 40 mg IVPB BID [facility] Last Admin: 09/09/16 22:49 Dose: 40 mg Tamsulosin HCl (Flomax -) 0.4 mg PO DAILY@0830 [facility] Last Admin: 09/09/16 08:58 Dose: 0.4 mg Thiamine HCl (Vitamin B1 -) 100 mg PO DAILY [facility] Last Admin: 09/09/16 09:43 Dose: 100 mg - Objective Vital Signs: Vital Signs Temperature 99.0 F 09/10/16 06:00 Pulse Rate 99 H 09/10/16 06:00 Respiratory Rate 18 09/10/16 06:00 Blood Pressure 149/91 09/10/16 06:00 O2 Sat by Pulse Oximetry (%) 100 09/09/16 21:00 Constitutional: Yes: Well Nourished, No Distress, Calm Cardiovascular: Yes: Regular Rate and Rhythm, S1, S2. No: Gallop, Murmur Respiratory: Yes: Regular, CTA Bilaterally. No: Accessory Muscle Use, Rales, Wheezes Extremities: No: Cold Edema: No Neurological: Yes: Alert. No: Seizure Psychiatric: No: Agitated Labs: CBC, BMP 09/07/16 05:15 09/08/16 05:10 INR, PTT INR 1.13 (0.82-1.09) 09/04/16 20:20 - ....Imaging EKG: Other (tele: NSR, no etelvina's) Assessment/Plan EKG 09/05: poor quality. sinus tachycardia, 121 bpm. right axis deviation. possible lvh. axis has changed and heart rate increased. otherwise similar. tele: sr. rare pvc's Echo here nl lv size/fn. rv not well seen. nl valves. 80yo male with h/o HTN, DM, hyperlipidemia, dementia, + rpr (recent tx), who initially presented on 08/27 for dehydration in the setting of diarrhea and poor po intake whose hosptial course now complicated by episode of bradycardia/ACLS. bradycardia - post peg tube placement per report HR down to 37 bpm. Unknown if patient was hemodynamically unstable at the time. --> agonal breathing --> intubation --> subsequent documented hypotension - Episode likely multifactorial - Increased vagal tone from sedation, GI manipulation or pain. Also may have contribution from hypoxia as well as electrolyte abnormalities. Patient had low k and mg at the time. - no further recurrence. would con't telemetry monitoring. Has had multiple recent admissions with no telemetry abnormalities, low suspicion that this is 2/ 2 underlying conduction disease. - if no further etelvina once acute triggers have resolved, there is no apparent indication for PPM Type II LA (NSTEMI): -rxya-pgm-iimt pattern, trop peak at 1.1, no acute ecg changes per notes -normal LV fxn on echo -secondary to coronary hypoperfusion from bradycardia episode with hypotension. -may have underlying chronic/stable CAD but would not pursue ischemic work up given comorbidities and frequent refusal to take medications (hence not a candidate for PCI and mandatory DAPT) -medical mgmt: con't atorvastatin, ASA; no bb (s/p eetlvina arrest) HTN - stable on current meds failure to thrive, hypovolemia, CODY: -renal fxn normalized s/p nutritional support/IVF here -s/p PEG now
[2016-09-10] MEDS: PANTOPRAZOLE SODIUM 40 MG/100 ML PRE-DOCKED IVPB SCH ×2 (10:29→22:04)
[2016-09-10] MEDS: amLODIPine BESYLATE 5 MG TABLET (FP) PO SCH (10:29)
[2016-09-10] MEDS: ASPIRIN COATED 81 MG TABLET.EC PO SCH (10:29)
[2016-09-10] MEDS: ENOXAPARIN NA (PORCINE) 40 MG/0.4 ML DISP.SYRIN SQ SCH (10:29)
[2016-09-10] MEDS: TAMSULOSIN HCL 0.4 MG CAP.ER.24H (FP) PO SCH (10:29)
[2016-09-10] MEDS: THIAMINE HCL 100 MG TABLET (FP) PO SCH (10:29)
[2016-09-10] MEDS: MUPIROCIN 2% TOPICAL OINTMENT FOR DECOLONIZATION NS SCH (10:29)
--- NOTE | 2016-09-10 10:46 | PN ---
Progress Note (short form) - Note Progress Note: PULMONARY LOW GRADE TEMP/CONGESTED COUGH FEEDINGS HELD TEMPORARILY ANICTERIC DISTANT BUT CLEAR B/L ANTERIOR BREATH SOUNDS S1S2 BS+ PEG IN PLACE SCD"S B/L LABS/MEDS/NOTES/IMAGING REVIEWED ASSESSMENT AND PLAN: s/p Acute Respiratory Failure Bradycardia s/p PEG placement Acute NSTEMI HTN DM Dementia - portable CXR - ASA, statin - resume enteral feeds today/check residual - monitor lytes - O2 to keep SPo2 >90% - aspiration precautions - DVT/GI prophylaxis - can monitor on telemetry Clive CARDENAS MD
--- NOTE | 2016-09-10 12:39 | PN ---
Progress Note (short form) - Note Progress Note: pt seen/examined/ chart reviewed low grade fever feeding held for high residue cxr -- devolving left base infiltrate pt otherwise comfortable denies pain. moist cough + Vital Signs Temp 99.0 F 09/10/16 06:00 Pulse 99 H 09/10/16 06:00 Resp 18 09/10/16 06:00 BP 149/91 09/10/16 06:00 Pulse Ox 100 09/09/16 21:00 Intake & Output 09/09/16 09/10/16 09/10/16 23:59 11:59 23:59 Intake Total 1100 1072 Balance 1100 1072 Intake: IVPB 100 100 Tube Feeding 600 612 Tube Irrigant 400 360 Other: # Unmeasured Voids Void 1 Active Medications Acetaminophen (Tylenol -) 650 mg PO Q4H PRN PRN Reason: FEVER OR PAIN Last Admin: 09/10/16 08:45 Dose: 650 mg Albuterol/Ipratropium (Duoneb -) 1 amp NEB Q6H PRN PRN Reason: SHORTNESS OF BREATH Amlodipine Besylate (Norvasc -) 5 mg PO DAILY [facility] Last Admin: 09/10/16 10:29 Dose: 5 mg Amoxicillin/Clavulanate Potassium (Augmentin - 500mg Tablet) 1 tab PO BID@0800, 1730 [facility] Aspirin (Ecotrin -) 81 mg PO DAILY [facility] Last Admin: 09/10/16 10:29 Dose: 81 mg Atorvastatin Calcium (Lipitor -) 20 mg PO HS [facility] Last Admin: 09/09/16 22:49 Dose: 20 mg Chlorhexidine Gluconate (Hibiclens For Decolonization -) 1 applic TP [facility] Last Admin: 09/09/16 22:29 Dose: Not Given Donepezil HCl (Aricept -) 10 mg PO HS [facility] Last Admin: 09/09/16 22:49 Dose: 10 mg Enoxaparin Sodium (Lovenox -) 40 mg SQ DAILY [facility] Last Admin: 09/10/16 10:29 Dose: 40 mg Gabapentin (Neurontin -) 100 mg PO TID [facility] Last Admin: 09/10/16 05:23 Dose: 100 mg Insulin Aspart (Novolog Vial Sliding Scale -) 1 vial SQ Q6HPO [facility] PRN Reason: Protocol Last Admin: 09/10/16 05:57 Dose: 2 units Metoclopramide HCl (Reglan Oral Solution -) 10 mg PO TIDAC [facility] Last Admin: 09/10/16 10:31 Dose: 10 mg Mupirocin (Bactroban Ointment (For Decolonization) -) 1 applic NS BID [facility] Stop: 09/10/16 21:59 Last Admin: 09/10/16 10:29 Dose: Not Given Pantoprazole Sodium (Protonix 40mg Ivpb (Pre-Docked)) 40 mg IVPB BID [facility] Last Admin: 09/10/16 10:29 Dose: 40 mg Tamsulosin HCl (Flomax -) 0.4 mg PO DAILY@0830 [facility] Last Admin: 09/10/16 10:29 Dose: 0.4 mg Thiamine HCl (Vitamin B1 -) 100 mg PO DAILY [facility] Last Admin: 09/10/16 10:29 Dose: 100 mg CBC, BMP 09/07/16 05:15 09/08/16 05:10 Physical exam Constitutional: Yes: No Distress/comfortable/ Cardiovascular: Yes: Regular Rate and Rhythm Respiratory: Yes: Diminished at bases Gastrointestinal: Yes: Normal Bowel Sounds, Soft, Other (peg+). Edema: No Neuro -- Awake A/P start on augmentin restart feeding on lower rate- check for residue f/u labs will follow discussed with nursing staff Problem List - Problems (1) Dehydration Code(s): E86.0 - DEHYDRATION (2) Dementia Code(s): F03.90 - UNSPECIFIED DEMENTIA WITHOUT BEHAVIORAL DISTURBANCE Qualifiers: Dementia type: unspecified type Dementia behavioral disturbance: with behavioral disturbance Qualified Code(s): F03.91 - Unspecified dementia with behavioral disturbance; F10.97 - Alcohol use, unspecified with alcohol- induced persisting dementia (3) Diabetes Code(s): E11.9 - TYPE 2 DIABETES MELLITUS WITHOUT COMPLICATIONS (4) Failure to thrive Code(s): QFM3996 - (5) HTN (hypertension) Code(s): I10 - ESSENTIAL (PRIMARY) HYPERTENSION
[2016-09-10] MEDS: AMOX TR/POT CLAV 500MG/125MG TABLETS (FP) PO SCH ×2 (15:41→18:56)
[2016-09-10] MEDS: DONEPEZIL HCL 10 MG TABLET (FP) PO SCH (21:51)
[2016-09-10] MEDS: ATORVASTATIN CA 20 MG TABLET (FP) PO SCH (21:52)
[2016-09-10] MEDS: CHLORHEXIDINE GLUCONATE 4% CLEANSER FOR DECOLONIZATION TP SCH (22:05)
[2016-09-11] MEDS: GABAPENTIN 100 MG CAPSULE (FP) PO SCH ×3 (05:51→22:56)
[2016-09-11] MEDS: INSULIN SLIDING SCALE (NOVOLOG) 1 VIAL SQ SCH ×3 (06:02→17:29)
[2016-09-11] MEDS: METOCLOPRAMIDE HCL 5 MG/5 ML UNIT DOSE CUP PO SCH ×3 (06:03→16:51)
[2016-09-11 07:41] LABS: BASOPHIL 0.9 % (0-2.0); EOSINOPHIL 1.3 % (0-4.5); MCH 26.6 pg (25.7-33.7); MCHC 33.1 g/dl (32.0-35.9); MEAN CELL VOLUME 80.4 fl (80-96); MEAN PLT VOLUME 8.4 fl (7.5-11.1); NEUTROPHILS 57.4 % (42.8-82.8); PLATELET COUNT 229 K/MM3 (134-434); RDW 16.5 % (11.9-15.9); WHITE BLOOD COUNT 5.3 K/mm3 (4.0-10.0)
[2016-09-11 08:51] LABS: ALBUMIN 2.2 g/dl (3.4-5.0); ALK PHOS 114 U/L (45-117); ANION GAP 12 (8-16); BILIRUBIN,TOTAL 0.4 mg/dL (0.2-1.0); CALCIUM 8.9 mg/dL (8.5-10.1); CO2 25 mmol/L (21-32); COCKROFT - GAULT 114.48; CREATININE 0.5 mg/dL (0.7-1.3); GLUCOSE,RANDOM 219 mg/dL (74-106); MAGNESIUM 1.8 mg/dL (1.8-2.4); SGOT/AST 40 U/L (15-37); SGPT/ALT 35 U/L (12-78); TOT PROT 5.2 g/dl (6.4-8.2)
--- NOTE | 2016-09-11 08:52 | PN ---
Progress Note (short form) - Note Progress Note: SUBJECTIVE: Patient seen and examined. Comfortable. No new issues. Afebrile. Pulmonary follow up noted and discussed with Dr. Daniel Devine. Tolerating feeding. OBJECTIVE: Vital Signs 09/11/16 09/11/16 05:26 10:00 Temperature 97.8 F 98.3 F Pulse Rate 85 89 Respiratory 18 18 Rate Blood Pressure 151/78 150/78 Intake & Output 09/10/16 09/11/16 09/11/16 23:59 07:59 15:59 Intake Total 50 870 Balance 50 870 Intake: IVPB 100 Tube Feeding 440 Tube Irrigant 50 330 Other: Voiding Method Incontinent # Unmeasured Voids Void 2 Active Medications Acetaminophen (Tylenol -) 650 mg PO Q4H PRN PRN Reason: FEVER OR PAIN Last Admin: 09/10/16 08:45 Dose: 650 mg Albuterol/Ipratropium (Duoneb -) 1 amp NEB Q6H PRN PRN Reason: SHORTNESS OF BREATH Amlodipine Besylate (Norvasc -) 5 mg PO DAILY [facility] Last Admin: 09/10/16 10:29 Dose: 5 mg Amoxicillin/Clavulanate Potassium (Augmentin - 500mg Tablet) 1 tab PO BID@0800, 1730 [facility] Last Admin: 09/10/16 18:56 Dose: 1 tab Aspirin (Ecotrin -) 81 mg PO DAILY [facility] Last Admin: 09/10/16 10:29 Dose: 81 mg Atorvastatin Calcium (Lipitor -) 20 mg PO [facility] Last Admin: 09/10/16 21:52 Dose: 20 mg Chlorhexidine Gluconate (Hibiclens For Decolonization -) 1 applic TP [facility] Last Admin: 09/10/16 22:05 Dose: Not Given Donepezil HCl (Aricept -) 10 mg PO [facility] Last Admin: 09/10/16 21:51 Dose: 10 mg Enoxaparin Sodium (Lovenox -) 40 mg SQ DAILY [facility] Last Admin: 09/10/16 10:29 Dose: 40 mg Gabapentin (Neurontin -) 100 mg PO TID [facility] Last Admin: 09/11/16 05:51 Dose: 100 mg Insulin Aspart (Novolog Vial Sliding Scale -) 1 vial SQ Q6HPO [facility] PRN Reason: Protocol Last Admin: 09/11/16 06:02 Dose: 2 units Metoclopramide HCl (Reglan Oral Solution -) 10 mg PO TIDAC [facility] Last Admin: 09/11/16 06:03 Dose: 10 mg Pantoprazole Sodium (Protonix 40mg Ivpb (Pre-Docked)) 40 mg IVPB BID [facility] Last Admin: 09/10/16 22:04 Dose: 40 mg Tamsulosin HCl (Flomax -) 0.4 mg PO DAILY@0830 [facility] Last Admin: 09/10/16 10:29 Dose: 0.4 mg Thiamine HCl (Vitamin B1 -) 100 mg PO DAILY [facility] Last Admin: 09/10/16 10:29 Dose: 100 mg CBC, BMP 09/11/16 05:35 09/11/16 05:35 Laboratory Results - last 24 hr 09/10/16 09/10/16 09/10/16 15:16 18:39 23:25 WBC RBC Hgb Hct MCV MCHC RDW Plt Count MPV Neutrophils % Lymphocytes % Monocytes % Eosinophils % Basophils % Sodium Potassium Chloride Carbon Dioxide Anion Gap BUN Creatinine Creat Clearance w eGFR POC Glucometer 141 162 199 Random Glucose Calcium Magnesium Total Bilirubin AST ALT Alkaline Phosphatase Total Protein Albumin 09/11/16 09/11/16 09/11/16 05:35 05:35 05:59 WBC 5.3 D RBC 4.60 Hgb 12.2 Hct 37.0 MCV 80.4 MCHC 33.1 RDW 16.5 H Plt Count 229 MPV 8.4 Neutrophils % 57.4 D Lymphocytes % 30.7 D Monocytes % 9.7 Eosinophils % 1.3 Basophils % 0.9 Sodium 132 L Potassium 4.6 Chloride 95 L Carbon Dioxide 25 Anion Gap 12 BUN 9 Creatinine 0.5 L D Creat Clearance w eGFR > 60 POC Glucometer 195 Random Glucose 219 H D Calcium 8.9 Magnesium 1.8 Total Bilirubin 0.4 D AST 40 H ALT 35 D Alkaline Phosphatase 114 D Total Protein 5.2 L Albumin 2.2 L Microbiology 09/05/16 16:00 Blood Culture - Final Blood - Peripheral Venous NO GROWTH AFTER 5 DAYS INCUBATION 09/05/16 16:00 Blood Culture - Final Blood - Peripheral Venous NO GROWTH AFTER 5 DAYS INCUBATION PHYSICAL EXAMINATION: Constitutional: Yes: No Distress/comfortable. Cardiovascular: Yes: Regular Rate and Rhythm Respiratory: Yes: Diminished at bases Gastrointestinal: Yes: Normal Bowel Sounds, Soft, Other (peg+). Edema: No Neuro: Awake ASSESSMENT & PLAN: - Clinically stable. - Continue antibiotics. - Tolerating feeding. - Discharge planning. - Discussed with Rn Night and delinquency prevention social worker. - Plan is to go home. - Patient will need feedings for the rest of his life. - Will follow. - Anticipate discharge tomorrow, if he remains stable. Documentation prepared by Steffanie Jules, acting as a biomedical specialist for Luis Balderas MD. <Steffanie Jules - Last Filed: 09/11/16 11:29> Problem List - Problems (1) Dehydration Code(s): E86.0 - DEHYDRATION (2) Dementia Code(s): F03.90 - UNSPECIFIED DEMENTIA WITHOUT BEHAVIORAL DISTURBANCE Qualifiers: Dementia type: unspecified type Dementia behavioral disturbance: with behavioral disturbance Qualified Code(s): F03.91 - Unspecified dementia with behavioral disturbance; F10.97 - Alcohol use, unspecified with alcohol- induced persisting dementia (3) Diabetes Code(s): E11.9 - TYPE 2 DIABETES MELLITUS WITHOUT COMPLICATIONS (4) Failure to thrive Code(s): [id number] - (5) HTN (hypertension) Code(s): I10 - ESSENTIAL (PRIMARY) HYPERTENSION <Luis Balderas - Last Filed: 09/11/16 08:51>
[2016-09-11] MEDS: AMOX TR/POT CLAV 500MG/125MG TABLETS (FP) PO SCH ×2 (11:01→16:49)
[2016-09-11] MEDS: ENOXAPARIN NA (PORCINE) 40 MG/0.4 ML DISP.SYRIN SQ SCH (11:01)
[2016-09-11] MEDS: PANTOPRAZOLE SODIUM 40 MG/100 ML PRE-DOCKED IVPB SCH ×2 (11:01→22:56)
[2016-09-11] MEDS: THIAMINE HCL 100 MG TABLET (FP) PO SCH (11:01)
[2016-09-11] MEDS: ASPIRIN COATED 81 MG TABLET.EC PO SCH (11:02)
[2016-09-11] MEDS: amLODIPine BESYLATE 5 MG TABLET (FP) PO SCH (11:02)
[2016-09-11] MEDS: TAMSULOSIN HCL 0.4 MG CAP.ER.24H (FP) PO SCH (11:02)
--- NOTE | 2016-09-11 11:08 | PN ---
Progress Note, Physician Chief Complaint: PULMONARY AWAKE,NON-VERBAL,-RESP DISTRESS - Current Medication List Current Medications: Active Medications Acetaminophen (Tylenol -) 650 mg PO Q4H PRN PRN Reason: FEVER OR PAIN Last Admin: 09/10/16 08:45 Dose: 650 mg Albuterol/Ipratropium (Duoneb -) 1 amp NEB Q6H PRN PRN Reason: SHORTNESS OF BREATH Amlodipine Besylate (Norvasc -) 5 mg PO DAILY [facility] Last Admin: 09/10/16 10:29 Dose: 5 mg Amoxicillin/Clavulanate Potassium (Augmentin - 500mg Tablet) 1 tab PO BID@0800, 1730 [facility] Last Admin: 09/10/16 18:56 Dose: 1 tab Aspirin (Ecotrin -) 81 mg PO DAILY [facility] Last Admin: 09/10/16 10:29 Dose: 81 mg Atorvastatin Calcium (Lipitor -) 20 mg PO HS [facility] Last Admin: 09/10/16 21:52 Dose: 20 mg Chlorhexidine Gluconate (Hibiclens For Decolonization -) [address] [facility] Last Admin: 09/10/16 22:05 Dose: Not Given Donepezil HCl (Aricept -) [address] [facility] Last Admin: 09/10/16 21:51 Dose: 10 mg Enoxaparin Sodium (Lovenox -) 40 mg SQ DAILY [facility] Last Admin: 09/10/16 10:29 Dose: 40 mg Gabapentin (Neurontin -) 100 mg PO TID [facility] Last Admin: 09/11/16 05:51 Dose: 100 mg Insulin Aspart (Novolog Vial Sliding Scale -) 1 vial SQ Q6HPO [facility] PRN Reason: Protocol Last Admin: 09/11/16 06:02 Dose: 2 units Metoclopramide HCl (Reglan Oral Solution -) 10 mg PO TIDAC [facility] Last Admin: 09/11/16 06:03 Dose: 10 mg Pantoprazole Sodium (Protonix 40mg Ivpb (Pre-Docked)) 40 mg IVPB BID [facility] Last Admin: 09/10/16 22:04 Dose: 40 mg Tamsulosin HCl (Flomax -) 0.4 mg PO DAILY@0830 [facility] Last Admin: 09/10/16 10:29 Dose: 0.4 mg Thiamine HCl (Vitamin B1 -) 100 mg PO DAILY [facility] Last Admin: 09/10/16 10:29 Dose: 100 mg - Objective Vital Signs: Vital Signs Temperature 98.3 F 09/11/16 10:00 Pulse Rate 89 09/11/16 10:00 Respiratory Rate 18 09/11/16 10:00 Blood Pressure 150/78 09/11/16 10:00 O2 Sat by Pulse Oximetry (%) 97 09/10/16 21:00 Constitutional: Yes: Calm, Thin Eyes: Yes: WNL HENT: Yes: WNL Neck: Yes: WNL Cardiovascular: Yes: Regular Rate and Rhythm, S1, S2 Respiratory: Yes: Diminished, Other (POOR INSPIRATORY EFFORT) Gastrointestinal: Yes: Normal Bowel Sounds, Soft Extremities: Yes: WNL Edema: No Labs: CBC, BMP 09/11/16 05:35 09/11/16 05:35 INR, PTT INR 1.13 (0.82-1.09) 09/04/16 20:20 - ....Imaging Chest X-ray: Report Reviewed, Image Reviewed Problem List - Problems (1) Dehydration Code(s): E86.0 - DEHYDRATION (2) Dementia Code(s): F03.90 - UNSPECIFIED DEMENTIA WITHOUT BEHAVIORAL DISTURBANCE Qualifiers: Dementia type: unspecified type Dementia behavioral disturbance: with behavioral disturbance Qualified Code(s): F03.91 - Unspecified dementia with behavioral disturbance; F10.97 - Alcohol use, unspecified with alcohol- induced persisting dementia (3) Diabetes Code(s): E11.9 - TYPE 2 DIABETES MELLITUS WITHOUT COMPLICATIONS (4) Failure to thrive Code(s): [id number] - (5) Protein-calorie malnutrition, moderate Code(s): E44.0 - MODERATE PROTEIN-CALORIE MALNUTRITION (6) HTN (hypertension) Code(s): I10 - ESSENTIAL (PRIMARY) HYPERTENSION (7) Bradycardia Code(s): R00.1 - BRADYCARDIA, UNSPECIFIED (8) NSTEMI (non-ST elevated myocardial infarction) Code(s): I21.4 - NON-ST ELEVATION (NSTEMI) MYOCARDIAL INFARCTION Assessment/Plan ASSESSMENT AND PLAN: s/p Acute Respiratory Failure Bradycardia s/p PEG placement Acute NSTEMI HTN DM Dementia - ASA, statin - continue enteral feeds - monitor lytes - O2 to keep SPo2 >90% - aspiration precautions - DVT/GI prophylaxis - nutritional support DR MAHONEY
--- NOTE | 2016-09-11 11:41 | PN ---
Progress Note, Physician Chief Complaint: afib History of Present Illness: not communicative - Current Medication List Current Medications: Active Medications Acetaminophen (Tylenol -) 650 mg PO Q4H PRN PRN Reason: FEVER OR PAIN Last Admin: 09/10/16 08:45 Dose: 650 mg Albuterol/Ipratropium (Duoneb -) 1 amp NEB Q6H PRN PRN Reason: SHORTNESS OF BREATH Amlodipine Besylate (Norvasc -) 5 mg PO DAILY [facility] Last Admin: 09/11/16 11:02 Dose: 5 mg Amoxicillin/Clavulanate Potassium (Augmentin - 500mg Tablet) 1 tab PO BID@0800, 1730 [facility] Last Admin: 09/11/16 11:01 Dose: 1 tab Aspirin (Ecotrin -) 81 mg PO DAILY [facility] Last Admin: 09/11/16 11:02 Dose: 81 mg Atorvastatin Calcium (Lipitor -) 20 mg PO HS [facility] Last Admin: 09/10/16 21:52 Dose: 20 mg Chlorhexidine Gluconate (Hibiclens For Decolonization -) 1 applic TP [facility] Last Admin: 09/10/16 22:05 Dose: Not Given Donepezil HCl (Aricept -) 10 mg PO HS [facility] Last Admin: 09/10/16 21:51 Dose: 10 mg Enoxaparin Sodium (Lovenox -) 40 mg SQ DAILY [facility] Last Admin: 09/11/16 11:01 Dose: 40 mg Gabapentin (Neurontin -) 100 mg PO TID [facility] Last Admin: 09/11/16 05:51 Dose: 100 mg Insulin Aspart (Novolog Vial Sliding Scale -) 1 vial SQ Q6HPO [facility] PRN Reason: Protocol Last Admin: 09/11/16 06:02 Dose: 2 units Metoclopramide HCl (Reglan Oral Solution -) 10 mg PO TIDAC [facility] Last Admin: 09/11/16 06:03 Dose: 10 mg Pantoprazole Sodium (Protonix 40mg Ivpb (Pre-Docked)) 40 mg IVPB BID [facility] Last Admin: 09/11/16 11:01 Dose: 40 mg Tamsulosin HCl (Flomax -) 0.4 mg PO DAILY@0830 [facility] Last Admin: 09/11/16 11:02 Dose: 0.4 mg Thiamine HCl (Vitamin B1 -) 100 mg PO DAILY [facility] Last Admin: 09/11/16 11:01 Dose: 100 mg - Objective Vital Signs: Vital Signs Temperature 98.3 F 09/11/16 10:00 Pulse Rate 89 09/11/16 10:00 Respiratory Rate 18 09/11/16 10:00 Blood Pressure 150/78 09/11/16 10:00 O2 Sat by Pulse Oximetry (%) 97 09/10/16 21:00 Constitutional: Yes: No Distress, Calm, Obese Cardiovascular: Yes: Pulse Irregular, S1, S2. No: JVD, Gallop, Murmur Respiratory: Yes: Regular, CTA Bilaterally. No: Accessory Muscle Use, Rales, Wheezes Extremities: No: Cold Edema: No Neurological: No: Alert, Oriented, Seizure Psychiatric: No: Agitated Labs: CBC, BMP 09/11/16 05:35 09/11/16 05:35 INR, PTT INR 1.13 (0.82-1.09) 09/04/16 20:20 - ....Imaging EKG: Other (tele: NSR) Assessment/Plan EKG 09/05: poor quality. sinus tachycardia, 121 bpm. right axis deviation. possible lvh. axis has changed and heart rate increased. otherwise similar. tele: sr. rare pvc's Echo here nl lv size/fn. rv not well seen. nl valves. 80yo male with h/o HTN, DM, hyperlipidemia, dementia, + rpr (recent tx), who initially presented on 08/27 for dehydration in the setting of diarrhea and poor po intake whose hosptial course now complicated by episode of bradycardia/ACLS. bradycardia - post peg tube placement per report HR down to 37 bpm. Unknown if patient was hemodynamically unstable at the time. --> agonal breathing --> intubation --> subsequent documented hypotension - Episode likely multifactorial - Increased vagal tone from sedation, GI manipulation or pain. Also may have contribution from hypoxia as well as electrolyte abnormalities. Patient had low k and mg at the time. - no further recurrence. would con't telemetry monitoring. Has had multiple recent admissions with no telemetry abnormalities, low suspicion that this is 2/ 2 underlying conduction disease. - if no further etelvina once acute triggers have resolved, there is no apparent indication for PPM -OK FOR D/C FROM HOSPITAL FROM CV P.O.V. Type II ME (NSTEMI): -[id number] pattern, trop peak at 1.1, no acute ecg changes per notes -normal LV fxn on echo -secondary to coronary hypoperfusion from bradycardia episode with hypotension. -may have underlying chronic/stable CAD but would not pursue ischemic work up given comorbidities and frequent refusal to take medications (hence not a candidate for PCI and mandatory DAPT) -medical mgmt: con't atorvastatin, ASA; no bb (s/p etelvina arrest) HTN - stable on current meds failure to thrive, hypovolemia, CODY: -renal fxn normalized s/p nutritional support/IVF here -s/p PEG now
[2016-09-11] MEDS ORDERED: PT OWN MED DRAWER 7, Y5N ONE ×2 (11:46→16:51)
--- NOTE | 2016-09-11 15:47 | CONSULT ---
Admitting History and Physical - Primary Care Physician PCP: Luis Balderas - Admission History of Present Illness: 80 Y/O Male. Transferred from ICU after PEG placement due to respiratory failure. Pt extubated 09/05/16 Diagnosis: acute renal failure (from dehydration), fall. Pmhx: Diabetes, high cholesterol, Dementia. 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 Cardiovascular: Yes: HTN, Hyperlipdemia - Smoking History Smoking history: Never smoked Have you smoked in the past 12 months: No - Alcohol/Substance Use Hx Alcohol Use: No History - Admission Reason For Visit: RENAL FAILURE DEMENTIA DEHYDRATION - Diagnostics X-ray: Report Reviewed - General Mental Status: Awake and Alert, Confused Attention: Intact Ability to Follow Directions: Fair Head/Neck Control: Fair - Hearing Hearing: Functional Speech Evaluation - Communication Primary Language: ESTONIAN Communication: Yes: Simple Responses Oral Expression Ability: Yes: Mild Impairment - Speech Production Able to Make Needs Known: Yes: WNL Intelligibility: Yes: Mildly Impaired - Speech Characteristics Voice Loudness: Mildly Soft/Quiet Voice Pitch: Yes: Mildly High Voice Phonatory-based Quality: Yes: Dysphonia Nasal Resonance: Normal Articulation: Yes: Precise Rate of Speech: Too Fast Voice, Other Observations: Yes: Progressively Weak Voice, Inadequate Breath Support - Language/Auditory Comprehension Follows: Yes: 1 Stage Simple Commands - Swallow Evaluation/Bedside Assessment Current Nutritional Intake: NPO, G Tube Oral Secretions: Yes: WFL Dentition: Yes: Missing Teeth Facial Symmetry at Rest: Symmetrical Recommendations - Speech Evaluation, Impression/Plan Impression: Confused, dysphonic, adamently refused PO trial if water or food. Pt has GT for nutritional intaske, hydration and medication. - Recommendations Diet Consistency: Other (GT feeding)
[2016-09-11] MEDS: CHLORHEXIDINE GLUCONATE 4% CLEANSER FOR DECOLONIZATION TP SCH (22:52)
[2016-09-11] MEDS: DONEPEZIL HCL 10 MG TABLET (FP) PO SCH (22:56)
[2016-09-11] MEDS: ATORVASTATIN CA 20 MG TABLET (FP) PO SCH (22:56)
[2016-09-12] MEDS: INSULIN SLIDING SCALE (NOVOLOG) 1 VIAL SQ SCH ×3 (00:45→12:27)
[2016-09-12] MEDS ORDERED: PT OWN MED DRAWER 7, Y5N ONE ×2 (06:10→09:21)
[2016-09-12] MEDS: METOCLOPRAMIDE HCL 5 MG/5 ML UNIT DOSE CUP PO SCH ×3 (06:11→17:40)
[2016-09-12] MEDS: GABAPENTIN 100 MG CAPSULE (FP) PO SCH ×3 (06:11→21:28)
[2016-09-12] MEDS: AMOX TR/POT CLAV 500MG/125MG TABLETS (FP) PO SCH ×2 (08:37→17:40)
[2016-09-12] MEDS: TAMSULOSIN HCL 0.4 MG CAP.ER.24H (FP) PO SCH (08:37)
[2016-09-12] MEDS: THIAMINE HCL 100 MG TABLET (FP) PO SCH (09:35)
[2016-09-12] MEDS: PANTOPRAZOLE SODIUM 40 MG/100 ML PRE-DOCKED IVPB SCH ×2 (09:35→21:27)
[2016-09-12] MEDS: ASPIRIN COATED 81 MG TABLET.EC PO SCH (09:35)
[2016-09-12] MEDS: ENOXAPARIN NA (PORCINE) 40 MG/0.4 ML DISP.SYRIN SQ SCH (09:35)
[2016-09-12] MEDS: amLODIPine BESYLATE 5 MG TABLET (FP) PO SCH (09:35)
--- NOTE | 2016-09-12 09:58 | PN ---
Progress Note, Physician Chief Complaint: Awake , no distress has mitten restraints as he was trying pull out iv line. s/p peg tolerating feeds evaluated by swallow therapist-- needs to be kept NPO - Current Medication List Current Medications: Active Medications Acetaminophen (Tylenol -) 650 mg PO Q4H PRN PRN Reason: FEVER OR PAIN Last Admin: 09/10/16 08:45 Dose: 650 mg Albuterol/Ipratropium (Duoneb -) 1 amp NEB Q6H PRN PRN Reason: SHORTNESS OF BREATH Amlodipine Besylate (Norvasc -) 5 mg PO DAILY [facility] Last Admin: 09/12/16 09:35 Dose: 5 mg Amoxicillin/Clavulanate Potassium (Augmentin - 500mg Tablet) 1 tab PO BID@0800, 1730 [facility] Last Admin: 09/12/16 08:37 Dose: 1 tab Aspirin (Ecotrin -) 81 mg PO DAILY [facility] Last Admin: 09/12/16 09:35 Dose: 81 mg Atorvastatin Calcium (Lipitor -) 20 mg PO HS [facility] Last Admin: 09/11/16 22:56 Dose: 20 mg Chlorhexidine Gluconate (Hibiclens For Decolonization -) 1 applic TP HS [facility] Last Admin: 09/11/16 22:52 Dose: Not Given Donepezil HCl (Aricept -) 10 mg PO [facility] Last Admin: 09/11/16 22:56 Dose: 10 mg Enoxaparin Sodium (Lovenox -) 40 mg SQ DAILY [facility] Last Admin: 09/12/16 09:35 Dose: 40 mg Gabapentin (Neurontin -) 100 mg PO TID [facility] Last Admin: 09/12/16 06:11 Dose: 100 mg Insulin Aspart (Novolog Vial Sliding Scale -) 1 vial SQ Q6HPO [facility] PRN Reason: Protocol Last Admin: 09/12/16 06:11 Dose: 6 units Metoclopramide HCl (Reglan Oral Solution -) 10 mg PO TIDAC [facility] Last Admin: 09/12/16 06:11 Dose: 10 mg Pantoprazole Sodium (Protonix 40mg Ivpb (Pre-Docked)) 40 mg IVPB BID [facility] Last Admin: 09/12/16 09:35 Dose: 40 mg Tamsulosin HCl (Flomax -) 0.4 mg PO DAILY@0830 [facility] Last Admin: 09/12/16 08:37 Dose: 0.4 mg Thiamine HCl (Vitamin B1 -) 100 mg PO DAILY [facility] Last Admin: 09/12/16 09:35 Dose: 100 mg - Objective Vital Signs: Vital Signs Temperature 99.2 F 09/12/16 05:00 Pulse Rate 84 09/12/16 05:00 Respiratory Rate 20 09/12/16 05:00 Blood Pressure 140/68 09/12/16 05:00 O2 Sat by Pulse Oximetry (%) 95 09/11/16 21:00 Constitutional: Yes: No Distress Cardiovascular: Yes: Regular Rate and Rhythm Respiratory: Yes: CTA Bilaterally Gastrointestinal: Yes: Normal Bowel Sounds, Soft, Other (peg+). No: Distention , Tenderness Edema: No Labs: CBC, BMP 09/11/16 05:35 09/11/16 05:35 INR, PTT INR 1.13 (0.82-1.09) 09/04/16 20:20 Problem List - Problems (1) Dehydration Code(s): E86.0 - DEHYDRATION (2) Dementia Code(s): F03.90 - UNSPECIFIED DEMENTIA WITHOUT BEHAVIORAL DISTURBANCE Qualifiers: Dementia type: unspecified type Dementia behavioral disturbance: with behavioral disturbance Qualified Code(s): F03.91 - Unspecified dementia with behavioral disturbance; F10.97 - Alcohol use, unspecified with alcohol- induced persisting dementia (3) Diabetes Code(s): E11.9 - TYPE 2 DIABETES MELLITUS WITHOUT COMPLICATIONS (4) Diarrhea Code(s): R19.7 - DIARRHEA, UNSPECIFIED Qualifiers: Diarrhea type: unspecified type Qualified Code(s): R19.7 - Diarrhea, unspecified (5) Renal failure Code(s): N19 - UNSPECIFIED KIDNEY FAILURE (6) GI (gastrointestinal bleed) Code(s): K92.2 - GASTROINTESTINAL HEMORRHAGE, UNSPECIFIED (7) Protein-calorie malnutrition, moderate Code(s): E44.0 - MODERATE PROTEIN-CALORIE MALNUTRITION Assessment/Plan PLAN heart rate better Tele noted continue with feeds continue with meds spoke with clinical case manager discharge to home not possible today pending approval from his insurance for peg tube feeds at home Also his family , daughter in law did not come to learn about using peg tube feeds DVT prophylaxes- Lovenox
--- NOTE | 2016-09-12 10:57 | PN ---
Progress Note, Physician History of Present Illness: PULMONARY DROWSY,NAD,-RESP DISTRESS - Current Medication List Current Medications: Active Medications Acetaminophen (Tylenol -) 650 mg PO Q4H PRN PRN Reason: FEVER OR PAIN Last Admin: 09/10/16 08:45 Dose: 650 mg Albuterol/Ipratropium (Duoneb -) 1 amp NEB Q6H PRN PRN Reason: SHORTNESS OF BREATH Amlodipine Besylate (Norvasc -) 5 mg PO DAILY [facility] Last Admin: 09/12/16 09:35 Dose: 5 mg Amoxicillin/Clavulanate Potassium (Augmentin - 500mg Tablet) 1 tab PO BID@0800, 1730 [facility] Last Admin: 09/12/16 08:37 Dose: 1 tab Aspirin (Ecotrin -) 81 mg PO DAILY [facility] Last Admin: 09/12/16 09:35 Dose: 81 mg Atorvastatin Calcium (Lipitor -) 20 mg PO HS [facility] Last Admin: 09/11/16 22:56 Dose: 20 mg Chlorhexidine Gluconate (Hibiclens For Decolonization -) 1 applic TP [facility] Last Admin: 09/11/16 22:52 Dose: Not Given Donepezil HCl (Aricept -) 10 mg PO HS [facility] Last Admin: 09/11/16 22:56 Dose: 10 mg Enoxaparin Sodium (Lovenox -) 40 mg SQ DAILY [facility] Last Admin: 09/12/16 09:35 Dose: 40 mg Gabapentin (Neurontin -) 100 mg PO TID [facility] Last Admin: 09/12/16 06:11 Dose: 100 mg Insulin Aspart (Novolog Vial Sliding Scale -) 1 vial SQ Q6HPO [facility] PRN Reason: Protocol Last Admin: 09/12/16 06:11 Dose: 6 units Metoclopramide HCl (Reglan Oral Solution -) 10 mg PO TIDAC [facility] Last Admin: 09/12/16 06:11 Dose: 10 mg Pantoprazole Sodium (Protonix 40mg Ivpb (Pre-Docked)) 40 mg IVPB BID [facility] Last Admin: 09/12/16 09:35 Dose: 40 mg Tamsulosin HCl (Flomax -) 0.4 mg PO DAILY@0830 [facility] Last Admin: 09/12/16 08:37 Dose: 0.4 mg Thiamine HCl (Vitamin B1 -) 100 mg PO DAILY [facility] Last Admin: 09/12/16 09:35 Dose: 100 mg - Objective Vital Signs: Vital Signs Temperature 99.2 F 09/12/16 05:00 Pulse Rate 84 09/12/16 05:00 Respiratory Rate 20 09/12/16 05:00 Blood Pressure 140/68 09/12/16 05:00 O2 Sat by Pulse Oximetry (%) 95 09/11/16 21:00 Constitutional: Yes: Calm, Thin Eyes: Yes: WNL HENT: Yes: WNL Neck: Yes: WNL Cardiovascular: Yes: Regular Rate and Rhythm, S1, S2 Respiratory: Yes: Diminished Gastrointestinal: Yes: Normal Bowel Sounds, Soft Extremities: Yes: WNL Edema: No Labs: CBC, BMP 09/11/16 05:35 09/11/16 05:35 INR, PTT INR 1.13 (0.82-1.09) 09/04/16 20:20 Problem List - Problems (1) Dehydration Code(s): E86.0 - DEHYDRATION (2) Dementia Code(s): F03.90 - UNSPECIFIED DEMENTIA WITHOUT BEHAVIORAL DISTURBANCE Qualifiers: Dementia type: unspecified type Dementia behavioral disturbance: with behavioral disturbance Qualified Code(s): F03.91 - Unspecified dementia with behavioral disturbance; F10.97 - Alcohol use, unspecified with alcohol- induced persisting dementia (3) Diabetes Code(s): E11.9 - TYPE 2 DIABETES MELLITUS WITHOUT COMPLICATIONS (4) Failure to thrive Code(s): [id number] - (5) Protein-calorie malnutrition, moderate Code(s): E44.0 - MODERATE PROTEIN-CALORIE MALNUTRITION (6) HTN (hypertension) Code(s): I10 - ESSENTIAL (PRIMARY) HYPERTENSION (7) Bradycardia Code(s): R00.1 - BRADYCARDIA, UNSPECIFIED (8) NSTEMI (non-ST elevated myocardial infarction) Code(s): I21.4 - NON-ST ELEVATION (NSTEMI) MYOCARDIAL INFARCTION Assessment/Plan ASSESSMENT AND PLAN: s/p Acute Respiratory Failure Bradycardia s/p PEG placement Acute NSTEMI HTN DM Dementia - ASA, statin - continue enteral feeds - monitor lytes - O2 to keep SPo2 >90% - aspiration precautions - DVT/GI prophylaxis - nutritional support DR MAHONEY
--- NOTE | 2016-09-12 11:09 | PN ---
Progress Note, [facility] - Note Progress Note: Received call from rep Sandrita from [facility] de[facility], regarding pt's swallowing function and need for GT feedings. Pt continues to be confused and verbally combative, refusing PO trials. He has been diagnosed with presents with MODERATE PROTEIN-CALORIE MALNUTRITION. Concur with TF, as indicated.
--- NOTE | 2016-09-12 13:14 | PN ---
Progress Note (short form) - Note Progress Note: Chief Complaint: afib History of Present Illness: does not make meaningful conversation, but is interactive. appears comfortable. Current Medications Acetaminophen (Tylenol -) 650 mg PO Q4H PRN PRN Reason: FEVER OR PAIN Last Admin: 09/10/16 08:45 Dose: 650 mg Albuterol/Ipratropium (Duoneb -) 1 amp NEB Q6H PRN PRN Reason: SHORTNESS OF BREATH Amlodipine Besylate (Norvasc -) 5 mg PO DAILY [facility] Last Admin: 09/12/16 09:35 Dose: 5 mg Amoxicillin/Clavulanate Potassium (Augmentin - 500mg Tablet) 1 tab PO BID@0800, 1730 [facility] Last Admin: 09/12/16 08:37 Dose: 1 tab Aspirin (Ecotrin -) 81 mg PO DAILY [facility] Last Admin: 09/12/16 09:35 Dose: 81 mg Atorvastatin Calcium (Lipitor -) 20 mg PO HS [facility] Last Admin: 09/11/16 22:56 Dose: 20 mg Chlorhexidine Gluconate (Hibiclens For Decolonization -) 1 applic TP [facility] Last Admin: 09/11/16 22:52 Dose: Not Given Donepezil HCl (Aricept -) 10 mg PO [facility] Last Admin: 09/11/16 22:56 Dose: 10 mg Enoxaparin Sodium (Lovenox -) 40 mg SQ DAILY [facility] Last Admin: 09/12/16 09:35 Dose: 40 mg Gabapentin (Neurontin -) 100 mg PO TID [facility] Last Admin: 09/12/16 06:11 Dose: 100 mg Insulin Aspart (Novolog Vial Sliding Scale -) 1 vial SQ Q6HPO [facility] PRN Reason: Protocol Last Admin: 09/12/16 12:27 Dose: Not Given Metoclopramide HCl (Reglan Oral Solution -) 10 mg PO TIDAC [facility] Last Admin: 09/12/16 11:27 Dose: 10 mg Pantoprazole Sodium (Protonix 40mg Ivpb (Pre-Docked)) 40 mg IVPB BID [facility] Last Admin: 09/12/16 09:35 Dose: 40 mg Tamsulosin HCl (Flomax -) 0.4 mg PO DAILY@0830 [facility] Last Admin: 09/12/16 08:37 Dose: 0.4 mg Thiamine HCl (Vitamin B1 -) 100 mg PO DAILY [facility] Last Admin: 09/12/16 09:35 Dose: 100 mg Vital Signs - 24 hr 09/11/16 09/11/16 09/11/16 13:50 17:00 21:00 Temperature 98.4 F 98.8 F 98 F Pulse Rate 87 96 H 95 H Respiratory 18 18 18 Rate Blood Pressure 142/70 131/78 156/73 O2 Sat by Pulse 95 Oximetry (%) 09/12/16 09/12/16 09/12/16 01:00 05:00 09:00 Temperature 97.6 F 99.2 F 98.7 F Pulse Rate 85 84 90 Respiratory 20 20 20 Rate Blood Pressure 135/70 140/68 117/66 O2 Sat by Pulse 95 Oximetry (%) Intake & Output 09/10/16 09/11/16 09/12/16 09/13/16 07:59 07:59 07:59 07:59 Intake Total 2172 1222 1710 Balance 2172 1222 1710 Constitutional: Yes: No Distress, Calm, Cardiovascular: Yes: regular, S1, S2. No: JVD, Gallop, Murmur Respiratory: Yes: Regular, CTA Bilaterally. No: Accessory Muscle Use, Rales, Wheezes Extremities: No: Cold Edema: No Neurological: No: Alert, Oriented, Seizure Psychiatric: No: Agitated Labs: no CBC, BMP - ....Imaging EKG: Other (tele: NSR, 1 5-b run of svt, 1 3-b nsvt) Assessment/Plan EKG 09/05: poor quality. sinus tachycardia, 121 bpm. right axis deviation. possible lvh. axis has changed and heart rate increased. otherwise similar. Echo here nl lv size/fn. rv not well seen. nl valves. 80yo male with h/o HTN, DM, hyperlipidemia, dementia, + rpr (recent tx), who initially presented on 08/27 for dehydration in the setting of diarrhea and poor po intake whose hosptial course now complicated by episode of bradycardia/ACLS. bradycardia - post peg tube placement per report HR down to 37 bpm. Unknown if patient was hemodynamically unstable at the time. --> agonal breathing --> intubation --> subsequent documented hypotension - Episode likely multifactorial - Increased vagal tone from sedation, GI manipulation or pain. Also may have contribution from hypoxia as well as electrolyte abnormalities. Patient had low k and mg at the time. - no further recurrence. Has had multiple recent admissions with no telemetry abnormalities, low suspicion that this is 2/2 underlying conduction disease. no apparent indication for PPM -OK FOR D/C FROM HOSPITAL FROM CV P.O.V. Type II LA (NSTEMI): -[id number] pattern, trop peak at 1.1, no acute ecg changes per notes -normal LV fxn on echo -secondary to coronary hypoperfusion from bradycardia episode with hypotension. -may have underlying chronic/stable CAD but would not pursue ischemic work up given comorbidities and frequent refusal to take medications (hence not a candidate for PCI and mandatory DAPT) -medical mgmt: con't atorvastatin, ASA; no bb (s/p etelvina arrest) HTN - stable on current meds failure to thrive, hypovolemia, CODY: -renal fxn normalized s/p nutritional support/IVF here -s/p PEG now Ok to d/c telemetry
[2016-09-12] MEDS: DONEPEZIL HCL 10 MG TABLET (FP) PO SCH (21:27)
[2016-09-12] MEDS: CHLORHEXIDINE GLUCONATE 4% CLEANSER FOR DECOLONIZATION TP SCH (21:28)
[2016-09-12] MEDS: ATORVASTATIN CA 20 MG TABLET (FP) PO SCH (21:28)
[2016-09-13] MEDS: INSULIN SLIDING SCALE (NOVOLOG) 1 VIAL SQ SCH ×6 (00:20→23:08)
[2016-09-13] MEDS: GABAPENTIN 100 MG CAPSULE (FP) PO SCH ×3 (06:21→22:52)
[2016-09-13] MEDS: METOCLOPRAMIDE HCL 5 MG/5 ML UNIT DOSE CUP PO SCH ×3 (06:21→17:28)
[2016-09-13] MEDS: TAMSULOSIN HCL 0.4 MG CAP.ER.24H (FP) PO SCH (09:01)
[2016-09-13] MEDS: AMOX TR/POT CLAV 500MG/125MG TABLETS (FP) PO SCH ×2 (09:02→17:28)
[2016-09-13] MEDS: THIAMINE HCL 100 MG TABLET (FP) PO SCH (09:15)
[2016-09-13] MEDS: PANTOPRAZOLE SOD 40 MG SUSPENSION PACKET PEG SCH ×2 (09:15→22:52)
[2016-09-13] MEDS: ASPIRIN COATED 81 MG TABLET.EC PO SCH (09:16)
[2016-09-13] MEDS: amLODIPine BESYLATE 5 MG TABLET (FP) PO SCH (09:16)
[2016-09-13] MEDS: ENOXAPARIN NA (PORCINE) 40 MG/0.4 ML DISP.SYRIN SQ SCH (09:16)
--- NOTE | 2016-09-13 10:36 | PN ---
Progress Note, Physician Chief Complaint: Awake , no distress has mitten restraints as he was trying pull out iv line and peg tube s/p peg tolerating feeds evaluated by swallow therapist-- needs to be kept NPO one of his sons came here - upset as to why pt is like this - Current Medication List Current Medications: Active Medications Acetaminophen (Tylenol -) 650 mg PO Q4H PRN PRN Reason: FEVER OR PAIN Last Admin: 09/10/16 08:45 Dose: 650 mg Albuterol/Ipratropium (Duoneb -) 1 amp NEB Q6H PRN PRN Reason: SHORTNESS OF BREATH Amlodipine Besylate (Norvasc -) 5 mg PO DAILY [facility] Last Admin: 09/13/16 09:16 Dose: 5 mg Amoxicillin/Clavulanate Potassium (Augmentin - 500mg Tablet) 1 tab PO BID@0800, 1730 [facility] Last Admin: 09/13/16 09:02 Dose: 1 tab Aspirin (Ecotrin -) 81 mg PO DAILY [facility] Last Admin: 09/13/16 09:16 Dose: 81 mg Atorvastatin Calcium (Lipitor -) 20 mg PO HS [facility] Last Admin: 09/12/16 21:28 Dose: 20 mg Chlorhexidine Gluconate (Hibiclens For Decolonization -) 1 applic TP HS [facility] Last Admin: 09/12/16 21:28 Dose: Not Given Donepezil HCl (Aricept -) 10 mg PO HS [facility] Last Admin: 09/12/16 21:27 Dose: 10 mg Enoxaparin Sodium (Lovenox -) 40 mg SQ DAILY [facility] Last Admin: 09/13/16 09:16 Dose: 40 mg Gabapentin (Neurontin -) 100 mg PO TID [facility] Last Admin: 09/13/16 06:21 Dose: 100 mg Insulin Aspart (Novolog Vial Sliding Scale -) 1 vial SQ Q6HPO [facility] PRN Reason: Protocol Last Admin: 09/13/16 06:21 Dose: 4 units Metoclopramide HCl (Reglan Oral Solution -) 10 mg PO TIDAC [facility] Last Admin: 09/13/16 06:21 Dose: 10 mg Pantoprazole Sodium (Protonix Packets For Oral Suspension -) 40 mg PEG BID [facility] Last Admin: 09/13/16 09:15 Dose: 40 mg Tamsulosin HCl (Flomax -) 0.4 mg PO DAILY@0830 [facility] Last Admin: 09/13/16 09:01 Dose: 0.4 mg Thiamine HCl (Vitamin B1 -) 100 mg PO DAILY [facility] Last Admin: 09/13/16 09:15 Dose: 100 mg - Objective Vital Signs: Vital Signs Temperature 98.0 F 09/13/16 06:00 Pulse Rate 86 09/13/16 06:00 Respiratory Rate 18 09/13/16 06:00 Blood Pressure 142/78 09/13/16 06:00 O2 Sat by Pulse Oximetry (%) 98 09/13/16 06:00 Constitutional: Yes: No Distress Cardiovascular: Yes: Regular Rate and Rhythm Respiratory: Yes: CTA Bilaterally Gastrointestinal: Yes: Normal Bowel Sounds, Soft, Other (peg +). No: Distention , Tenderness Edema: No Labs: CBC, BMP 09/11/16 05:35 INR, PTT INR 1.13 (0.82-1.09) 09/04/16 20:20 Problem List - Problems (1) Dehydration Code(s): E86.0 - DEHYDRATION (2) Dementia Code(s): F03.90 - UNSPECIFIED DEMENTIA WITHOUT BEHAVIORAL DISTURBANCE Qualifiers: Dementia type: unspecified type Dementia behavioral disturbance: with behavioral disturbance Qualified Code(s): F03.91 - Unspecified dementia with behavioral disturbance; F10.97 - Alcohol use, unspecified with alcohol- induced persisting dementia (3) Diabetes Code(s): E11.9 - TYPE 2 DIABETES MELLITUS WITHOUT COMPLICATIONS (4) Diarrhea Code(s): R19.7 - DIARRHEA, UNSPECIFIED Qualifiers: Diarrhea type: unspecified type Qualified Code(s): R19.7 - Diarrhea, unspecified (5) Renal failure Code(s): N19 - UNSPECIFIED KIDNEY FAILURE (6) GI (gastrointestinal bleed) Code(s): K92.2 - GASTROINTESTINAL HEMORRHAGE, UNSPECIFIED (7) Protein-calorie malnutrition, moderate Code(s): E44.0 - MODERATE PROTEIN-CALORIE MALNUTRITION Assessment/Plan PLAN heart rate better Tele noted continue with feeds-- need to change management bolus feeds PT eval continue with meds spoke with counseling case manager discharge to home not possible today pending approval from his insurance for peg tube feeds at home Also his family , daughter in law did not come to learn about using peg tube feeds
--- NOTE | 2016-09-13 10:56 | PN ---
Progress Note (short form) - Note Progress Note: Chief Complaint: afib History of Present Illness: does not make meaningful conversation, appears comfortable. no overnight events Current Medications Generic Name Dose Route Start Last Admin Trade Name Freq PRN Reason Stop Dose Admin Acetaminophen 650 mg 09/08/16 17:29 09/10/16 08:45 Tylenol - PO 650 mg Q4H PRN Administration FEVER OR PAIN Albuterol/Ipratropium 1 amp 09/08/16 17:29 Duoneb - NEB Q6H PRN SHORTNESS OF BREATH Amlodipine Besylate 5 mg 09/09/16 10:00 09/13/16 09:16 Norvasc - PO 5 mg DAILY [facility] Administration Amoxicillin/Clavulanate Potassium 1 tab 09/10/16 13:15 09/13/16 09:02 Augmentin - 500mg Tablet PO 1 tab BID@0800,1730 [facility] Administration Aspirin 81 mg 09/09/16 10:00 09/13/16 09:16 Ecotrin - PO 81 mg DAILY [facility] Administration Atorvastatin Calcium 20 mg 09/08/16 22:00 09/12/16 21:28 Lipitor - PO 20 mg HS [facility] Administration Chlorhexidine Gluconate 1 applic 09/08/16 22:00 09/12/16 21:28 Hibiclens For Decolonization - TP Not Given HS [facility] Donepezil HCl 10 mg 09/08/16 22:00 09/12/16 21:27 Aricept - PO 10 mg HS [facility] Administration Enoxaparin Sodium 40 mg 09/09/16 10:00 09/13/16 09:16 Lovenox - SQ 40 mg DAILY [facility] Administration Gabapentin 100 mg 09/08/16 22:00 09/13/16 06:21 Neurontin - PO 100 mg TID [facility] Administration Insulin Aspart 1 vial 09/08/16 18:00 09/13/16 06:21 Novolog Vial Sliding Scale - SQ 4 units Q6HPO [facility] Administration Protocol Metoclopramide HCl 10 mg 09/09/16 07:00 09/13/16 06:21 Reglan Oral Solution - PO 10 mg TIDAC [facility] Administration Pantoprazole Sodium 40 mg 09/13/16 10:00 09/13/16 09:15 Protonix Packets For Oral Suspension - PEG 40 mg BID [facility] Administration Tamsulosin HCl 0.4 mg 09/09/16 08:30 09/13/16 09:01 Flomax - PO 0.4 mg DAILY@0830 [facility] Administration Thiamine HCl 100 mg 09/09/16 10:00 09/13/16 09:15 Vitamin B1 - PO 100 mg DAILY [facility] Administration Vital Signs Period Temp Pulse Resp BP Sys/Farias Pulse Ox Last 24 Hr 98 F-99.3 F 84-94 18-20 123-152/72-84 98-98 Constitutional: Yes: No Distress, Calm, Cardiovascular: Yes: regular, S1, S2. No: JVD, Gallop, Murmur Respiratory: Yes: Regular, CTA Bilaterally poor effort No: Accessory Muscle Use , Rales, Wheezes Extremities: No: Cold Edema: No Neurological: No: awake, no significant communication abd nt nd pos bs Psychiatric: No: Agitated no jaundice diaphoresis Labs: CBC, BMP 09/11/16 05:35 - ....Imaging EKG: Other (tele: sr) EKG 09/05: poor quality. sinus tachycardia, 121 bpm. right axis deviation. possible lvh. axis has changed and heart rate increased. otherwise similar. Echo here nl lv size/fn. rv not well seen. nl valves. Assessment/Plan 80yo male with h/o HTN, DM, hyperlipidemia, dementia, + rpr (recent tx), who initially presented on 08/27 for dehydration in the setting of diarrhea and poor po intake whose hosptial course now complicated by episode of bradycardia/ACLS. bradycardia - post peg tube placement per report HR down to 37 bpm. Unknown if patient was hemodynamically unstable at the time. --> agonal breathing --> intubation --> subsequent documented hypotension - Episode likely multifactorial - Increased vagal tone from sedation, GI manipulation or pain. Also may have contribution from hypoxia as well as electrolyte abnormalities. Patient had low k and mg at the time. - no further recurrence. Has had multiple recent admissions with no telemetry abnormalities, low suspicion that this is 2/2 underlying conduction disease. no apparent indication for PPM -OK FOR D/C FROM HOSPITAL FROM CV P.O.V. Type II NE (NSTEMI): -[id number] pattern, trop peak at 1.1, no acute ecg changes per notes -normal LV fxn on echo -secondary to coronary hypoperfusion from bradycardia episode with hypotension. -may have underlying chronic/stable CAD but would not pursue ischemic work up given comorbidities and frequent refusal to take medications (hence not a candidate for PCI and mandatory DAPT) -medical mgmt: con't atorvastatin, ASA; no bb (s/p etelvina arrest) HTN - stable on current meds failure to thrive, hypovolemia, CODY: -renal fxn normalized s/p nutritional support/IVF here -s/p PEG now d/c telemetry
[2016-09-13 11:16] LABS: ALBUMIN 2.3 g/dl (3.4-5.0); ANION GAP 13 (8-16); CALCIUM 9.1 mg/dL (8.5-10.1); CO2 29 mmol/L (21-32); GLUCOSE,RANDOM 196 mg/dL (74-106)
--- NOTE | 2016-09-13 11:17 | PN ---
Progress Note, Physician History of Present Illness: PULMONARY ALERT,NAD,-SOB. - Current Medication List Current Medications: Active Medications Acetaminophen (Tylenol -) 650 mg PO Q4H PRN PRN Reason: FEVER OR PAIN Last Admin: 09/10/16 08:45 Dose: 650 mg Albuterol/Ipratropium (Duoneb -) 1 amp NEB Q6H PRN PRN Reason: SHORTNESS OF BREATH Amlodipine Besylate (Norvasc -) 5 mg PO DAILY [facility] Last Admin: 09/13/16 09:16 Dose: 5 mg Amoxicillin/Clavulanate Potassium (Augmentin - 500mg Tablet) 1 tab PO BID@0800, 1730 [facility] Last Admin: 09/13/16 09:02 Dose: 1 tab Aspirin (Ecotrin -) 81 mg PO DAILY [facility] Last Admin: 09/13/16 09:16 Dose: 81 mg Atorvastatin Calcium (Lipitor -) 20 mg PO HS [facility] Last Admin: 09/12/16 21:28 Dose: 20 mg Chlorhexidine Gluconate (Hibiclens For Decolonization -) 1 applic TP [facility] Last Admin: 09/12/16 21:28 Dose: Not Given Donepezil HCl (Aricept -) 10 mg PO HS [facility] Last Admin: 09/12/16 21:27 Dose: 10 mg Enoxaparin Sodium (Lovenox -) 40 mg SQ DAILY [facility] Last Admin: 09/13/16 09:16 Dose: 40 mg Gabapentin (Neurontin -) 100 mg PO TID [facility] Last Admin: 09/13/16 06:21 Dose: 100 mg Insulin Aspart (Novolog Vial Sliding Scale -) 1 vial SQ Q6HPO [facility] PRN Reason: Protocol Last Admin: 09/13/16 06:21 Dose: 4 units Metoclopramide HCl (Reglan Oral Solution -) 10 mg PO TIDAC [facility] Last Admin: 09/13/16 06:21 Dose: 10 mg Pantoprazole Sodium (Protonix Packets For Oral Suspension -) 40 mg PEG BID [facility] Last Admin: 09/13/16 09:15 Dose: 40 mg Tamsulosin HCl (Flomax -) 0.4 mg PO DAILY@0830 [facility] Last Admin: 09/13/16 09:01 Dose: 0.4 mg Thiamine HCl (Vitamin B1 -) 100 mg PO DAILY [facility] Last Admin: 05/10/17 09:15 Dose: 100 mg - Objective Vital Signs: Vital Signs Temperature 98 F 09/13/16 10:00 Pulse Rate 84 09/13/16 10:00 Respiratory Rate 20 09/13/16 10:00 Blood Pressure 123/75 09/13/16 10:00 O2 Sat by Pulse Oximetry (%) 98 09/13/16 09:00 Constitutional: Yes: Calm, Thin Eyes: Yes: WNL HENT: Yes: WNL Neck: Yes: Supple Cardiovascular: Yes: Regular Rate and Rhythm, S1, S2 Respiratory: Yes: Diminished Gastrointestinal: Yes: Normal Bowel Sounds, Soft Edema: No Labs: CBC, BMP 09/11/16 05:35 INR, PTT INR 1.13 (0.82-1.09) 09/04/16 20:20 Problem List - Problems (1) Dehydration Code(s): E86.0 - DEHYDRATION (2) Dementia Code(s): F03.90 - UNSPECIFIED DEMENTIA WITHOUT BEHAVIORAL DISTURBANCE Qualifiers: Dementia type: unspecified type Dementia behavioral disturbance: with behavioral disturbance Qualified Code(s): F03.91 - Unspecified dementia with behavioral disturbance; F10.97 - Alcohol use, unspecified with alcohol- induced persisting dementia (3) Diabetes Code(s): E11.9 - TYPE 2 DIABETES MELLITUS WITHOUT COMPLICATIONS (4) Failure to thrive Code(s): SAP6930 - (5) Protein-calorie malnutrition, moderate Code(s): E44.0 - MODERATE PROTEIN-CALORIE MALNUTRITION (6) HTN (hypertension) Code(s): I10 - ESSENTIAL (PRIMARY) HYPERTENSION (7) Bradycardia Code(s): R00.1 - BRADYCARDIA, UNSPECIFIED (8) NSTEMI (non-ST elevated myocardial infarction) Code(s): I21.4 - NON-ST ELEVATION (NSTEMI) MYOCARDIAL INFARCTION Assessment/Plan ASSESSMENT AND PLAN: s/p Acute Respiratory Failure stable Bradycardia Acute NSTEMI HTN DM Dementia - ASA, statin - continue enteral feeds - monitor lytes - O2 to keep SPo2 >90% - aspiration precautions - DVT/GI prophylaxis - nutritional support DR MAHONEY
[2016-09-13 11:20] LABS: ALK PHOS 119 U/L (45-117); BILIRUBIN,TOTAL 0.4 mg/dL (0.2-1.0); CREATININE 0.6 mg/dL (0.7-1.3); SGOT/AST 33 U/L (15-37); SGPT/ALT 38 U/L (12-78); TOT PROT 5.5 g/dl (6.4-8.2)
--- NOTE | 2016-09-13 15:53 | PN ---
Progress Note, [employer] - Note Progress Note: Selected Entries 09/12/16 09/12/16 09/12/16 01:00 05:00 09:00 Supper Temperature 97.6 F 99.2 F 98.7 F 09/12/16 09/12/16 09/12/16 14:00 17:00 22:00 Supper Temperature 98.4 F 99.3 F 98.1 F 09/13/16 09/13/16 09/13/16 02:00 06:00 10:00 Supper NPO Temperature 98.0 F 98.0 F 98 F 09/13/16 14:00 Supper Temperature 98.6 F Swallowing reassessed. Pt refused oral/peripheral cursory evaluation. Lips are symmetric. Pt continues to be confused and verbally combative, refusing most PO trials. Today, he did accept a small amount of puree and cranberry juice with a delayed swallow and a responsive cough.This is c/w oral/pharyngeal dyscoordination, likely with spillage over base of tongue and signs of aspiration before swallow was initiated. Swallowing is not functional at this time. He has been diagnosed with presents with MODERATE PROTEIN-CALORIE MALNUTRITION, with poor po intake/tolerance. Concur with neccessity for TF, as indicated.
[2016-09-13] MEDS: ATORVASTATIN CA 20 MG TABLET (FP) PO SCH (22:52)
[2016-09-13] MEDS: DONEPEZIL HCL 10 MG TABLET (FP) PO SCH (22:52)
[2016-09-13] MEDS: CHLORHEXIDINE GLUCONATE 4% CLEANSER FOR DECOLONIZATION TP SCH (23:02)
[2016-09-14] MEDS ORDERED: PT OWN MED DRAWER 7, Y5N ONE (05:50)
[2016-09-14] MEDS: INSULIN SLIDING SCALE (NOVOLOG) 1 VIAL SQ SCH ×4 (06:54→23:27)
[2016-09-14] MEDS: METOCLOPRAMIDE HCL 5 MG/5 ML UNIT DOSE CUP PO SCH ×3 (06:54→17:04)
[2016-09-14] MEDS: GABAPENTIN 100 MG CAPSULE (FP) PO SCH (06:54)
[2016-09-14] MEDS: TAMSULOSIN HCL 0.4 MG CAP.ER.24H (FP) PO SCH (08:04)
[2016-09-14] MEDS: AMOX TR/POT CLAV 500MG/125MG TABLETS (FP) PO SCH ×2 (08:04→20:48)
[2016-09-14] MEDS: amLODIPine BESYLATE 5 MG TABLET (FP) PO SCH (09:26)
[2016-09-14] MEDS: PANTOPRAZOLE SOD 40 MG SUSPENSION PACKET PEG SCH ×2 (09:26→23:07)
[2016-09-14] MEDS: ASPIRIN COATED 81 MG TABLET.EC PO SCH (09:26)
[2016-09-14] MEDS: ENOXAPARIN NA (PORCINE) 40 MG/0.4 ML DISP.SYRIN SQ SCH (09:26)
[2016-09-14] MEDS: THIAMINE HCL 100 MG TABLET (FP) PO SCH (09:27)
--- NOTE | 2016-09-14 10:52 | PN ---
Progress Note, Physician Chief Complaint: Awake , no distress has mitten restraints as he was trying pull out iv line and peg tube s/p peg tolerating feeds tolerating bolus feeds - Current Medication List Current Medications: Active Medications Acetaminophen (Tylenol -) 650 mg PO Q4H PRN PRN Reason: FEVER OR PAIN Last Admin: 09/10/16 08:45 Dose: 650 mg Albuterol/Ipratropium (Duoneb -) 1 amp NEB Q6H PRN PRN Reason: SHORTNESS OF BREATH Amlodipine Besylate (Norvasc -) 5 mg PO DAILY [facility] Last Admin: 09/14/16 09:26 Dose: 5 mg Amoxicillin/Clavulanate Potassium (Augmentin - 500mg Tablet) 1 tab PO BID@0800, 1730 [facility] Last Admin: 09/14/16 08:04 Dose: 1 tab Aspirin (Ecotrin -) 81 mg PO DAILY [facility] Last Admin: 09/14/16 09:26 Dose: 81 mg Atorvastatin Calcium (Lipitor -) 20 mg PO HS [facility] Last Admin: 09/13/16 22:52 Dose: 20 mg Chlorhexidine Gluconate (Hibiclens For Decolonization -) 1 applic TP [facility] Last Admin: 09/13/16 23:02 Dose: Not Given Donepezil HCl (Aricept -) 10 mg PO [facility] Last Admin: 09/13/16 22:52 Dose: 10 mg Enoxaparin Sodium (Lovenox -) 40 mg SQ DAILY [facility] Last Admin: 09/14/16 09:26 Dose: 40 mg Gabapentin (Neurontin -) 100 mg PO TID [facility] Last Admin: 09/14/16 06:54 Dose: 100 mg Insulin Aspart (Novolog Vial Sliding Scale -) 1 vial SQ Q6HPO [facility] PRN Reason: Protocol Last Admin: 09/14/16 06:54 Dose: 2 units Metoclopramide HCl (Reglan Oral Solution -) 10 mg PO TIDAC [facility] Last Admin: 09/14/16 06:54 Dose: 10 mg Pantoprazole Sodium (Protonix Packets For Oral Suspension -) 40 mg PEG BID [facility] Last Admin: 09/14/16 09:26 Dose: 40 mg Tamsulosin HCl (Flomax -) 0.4 mg PO DAILY@0830 [facility] Last Admin: 09/14/16 08:04 Dose: 0.4 mg Thiamine HCl (Vitamin B1 -) 100 mg PO DAILY [facility] Last Admin: 09/14/16 09:27 Dose: 100 mg - Objective Vital Signs: Vital Signs Temperature 99.1 F 09/14/16 01:00 Pulse Rate 104 H 09/14/16 05:00 Respiratory Rate 20 09/14/16 05:00 Blood Pressure 153/89 09/14/16 05:00 O2 Sat by Pulse Oximetry (%) 100 09/13/16 21:00 Constitutional: Yes: No Distress Cardiovascular: Yes: Regular Rate and Rhythm Respiratory: Yes: CTA Bilaterally Gastrointestinal: Yes: Normal Bowel Sounds, Soft, Other (peg+). No: Distention , Tenderness Edema: No Labs: CBC, BMP 09/11/16 05:35 09/13/16 05:35 INR, PTT INR 1.13 (0.82-1.09) 09/04/16 20:20 Problem List - Problems (1) Dehydration Code(s): E86.0 - DEHYDRATION (2) Dementia Code(s): F03.90 - UNSPECIFIED DEMENTIA WITHOUT BEHAVIORAL DISTURBANCE Qualifiers: Dementia type: unspecified type Dementia behavioral disturbance: with behavioral disturbance Qualified Code(s): F03.91 - Unspecified dementia with behavioral disturbance; F10.97 - Alcohol use, unspecified with alcohol- induced persisting dementia (3) Diabetes Code(s): E11.9 - TYPE 2 DIABETES MELLITUS WITHOUT COMPLICATIONS (4) Diarrhea Code(s): R19.7 - DIARRHEA, UNSPECIFIED Qualifiers: Diarrhea type: unspecified type Qualified Code(s): R19.7 - Diarrhea, unspecified (5) Renal failure Code(s): N19 - UNSPECIFIED KIDNEY FAILURE (6) GI (gastrointestinal bleed) Code(s): K92.2 - GASTROINTESTINAL HEMORRHAGE, UNSPECIFIED (7) Protein-calorie malnutrition, moderate Code(s): E44.0 - MODERATE PROTEIN-CALORIE MALNUTRITION Assessment/Plan PLAN heart rate better Tele noted continue with feeds PT eval continue with meds spoke with social work case manager dc home tomorrow-- daughter in law will come tomorrow , supplies has been set up . meds sent to pharmacy today has a low grade fever, on Augmentin- no diarrhea
--- NOTE | 2016-09-14 11:43 | PN ---
Progress Note (short form) - Note Progress Note: Chief Complaint: afib History of Present Illness: does not make meaningful conversation, appears comfortable. no overnight events Current Medications Generic Name Dose Route Start Last Admin Trade Name Fredolly PRN Reason Stop Dose Admin Acetaminophen 650 mg 09/08/16 17:29 09/10/16 08:45 Tylenol - PO 650 mg Q4H PRN Administration FEVER OR PAIN Albuterol/Ipratropium 1 amp 09/08/16 17:29 Duoneb - NEB Q6H PRN SHORTNESS OF BREATH Amlodipine Besylate 5 mg 09/09/16 10:00 09/14/16 09:26 Norvasc - PO 5 mg DAILY [facility] Administration Amoxicillin/Clavulanate Potassium 1 tab 09/10/16 13:15 09/14/16 08:04 Augmentin - 500mg Tablet PO 1 tab BID@0800,1730 [facility] Administration Aspirin 81 mg 09/09/16 10:00 09/14/16 09:26 Ecotrin - PO 81 mg DAILY [facility] Administration Atorvastatin Calcium 20 mg 09/08/16 22:00 09/13/16 22:52 Lipitor - PO 20 mg HS [facility] Administration Chlorhexidine Gluconate 1 applic 09/08/16 22:00 09/13/16 23:02 Hibiclens For Decolonization - TP Not Given HS [facility] Donepezil HCl 10 mg 09/08/16 22:00 09/13/16 22:52 Aricept - PO 10 mg HS [facility] Administration Enoxaparin Sodium 40 mg 09/09/16 10:00 09/14/16 09:26 Lovenox - SQ 40 mg DAILY [facility] Administration Insulin Aspart 1 vial 09/08/16 18:00 09/14/16 11:19 Novolog Vial Sliding Scale - SQ 8 units Q6HPO [facility] Administration Protocol Metoclopramide HCl 10 mg 09/09/16 07:00 09/14/16 11:20 Reglan Oral Solution - PO 10 mg TIDAC [facility] Administration Pantoprazole Sodium 40 mg 09/13/16 10:00 09/14/16 09:26 Protonix Packets For Oral Suspension - PEG 40 mg BID [facility] Administration Tamsulosin HCl 0.4 mg 09/09/16 08:30 09/14/16 08:04 Flomax - PO 0.4 mg DAILY@0830 [facility] Administration Thiamine HCl 100 mg 09/09/16 10:00 09/14/16 09:27 Vitamin B1 - PO 100 mg DAILY [facility] Administration Vital Signs Period Temp Pulse Resp BP Sys/Farias Pulse Ox Last 24 Hr 98.6 F-100.1 F 91-119 18-20 135-154/72-89 97-100 Constitutional: Yes: No Distress, Calm, Cardiovascular: Yes: regular, S1, S2. No: JVD, Gallop, Murmur Respiratory: Yes: Regular, CTA Bilaterally poor effort No: Accessory Muscle Use , Rales, Wheezes Extremities: No: Cold Edema: No Neurological: No: awake, no significant communication abd nt nd pos bs Psychiatric: No: Agitated no jaundice diaphoresis Labs: CBC, BMP 09/11/16 05:35 09/13/16 05:35 - ....Imaging EKG: Other (tele: sr, sinus tachy) EKG 09/05: poor quality. sinus tachycardia, 121 bpm. right axis deviation. possible lvh. axis has changed and heart rate increased. otherwise similar. Echo here nl lv size/fn. rv not well seen. nl valves. Assessment/Plan 80yo male with h/o HTN, DM, hyperlipidemia, dementia, + rpr (recent tx), who initially presented on 08/27 for dehydration in the setting of diarrhea and poor po intake whose hosptial course now complicated by episode of bradycardia/ACLS. bradycardia - post peg tube placement per report HR down to 37 bpm. Unknown if patient was hemodynamically unstable at the time. --> agonal breathing --> intubation --> subsequent documented hypotension - Episode likely multifactorial - Increased vagal tone from sedation, GI manipulation or pain. Also may have contribution from hypoxia as well as electrolyte abnormalities. Patient had low k and mg at the time. - no further recurrence. Has had multiple recent admissions with no telemetry abnormalities, low suspicion that this is 2/2 underlying conduction disease. no apparent indication for PPM -OK FOR D/C FROM HOSPITAL FROM CV P.O.V. Type II NE (NSTEMI): -xrek-[id number] pattern, trop peak at 1.1, no acute ecg changes per notes -normal LV fxn on echo -secondary to coronary hypoperfusion from bradycardia episode with hypotension. -may have underlying chronic/stable CAD but would not pursue ischemic work up given comorbidities and frequent refusal to take medications (hence not a candidate for PCI and mandatory DAPT) -medical mgmt: con't atorvastatin, ASA; no bb (s/p etelvina arrest) HTN - stable on current meds failure to thrive, hypovolemia, CODY: -renal fxn normalized s/p nutritional support/IVF here -s/p PEG now d/c telemetry
--- NOTE | 2016-09-14 12:38 | PN ---
Progress Note (short form) - Note Progress Note: PULMONARY Somnolent but arousable. Not speaking today. Last Vital Signs Temp Pulse Resp BP Pulse Ox 99 F 106 H 20 152/83 97 09/14/16 09:00 09/14/16 09:00 09/14/16 09:00 09/14/16 09:00 09/14/16 10:00 Gen: NAD, breathing nonlabored Heart: RRR Lung: decreased breath sounds at the bases Abd: soft, nontender Ext: no edema CBC, BMP 09/11/16 05:35 09/13/16 05:35 Active Medications Acetaminophen (Tylenol -) 650 mg PO Q4H PRN PRN Reason: FEVER OR PAIN Last Admin: 09/10/16 08:45 Dose: 650 mg Albuterol/Ipratropium (Duoneb -) 1 amp NEB Q6H PRN PRN Reason: SHORTNESS OF BREATH Amlodipine Besylate (Norvasc -) 5 mg PO DAILY [facility] Last Admin: 09/14/16 09:26 Dose: 5 mg Amoxicillin/Clavulanate Potassium (Augmentin - 500mg Tablet) 1 tab PO BID@0800, 1730 [facility] Last Admin: 09/14/16 08:04 Dose: 1 tab Aspirin (Ecotrin -) 81 mg PO DAILY [facility] Last Admin: 09/14/16 09:26 Dose: 81 mg Atorvastatin Calcium (Lipitor -) 20 mg PO HS [facility] Last Admin: 09/13/16 22:52 Dose: 20 mg Chlorhexidine Gluconate (Hibiclens For Decolonization -) 1 applic TP [facility] Last Admin: 09/13/16 23:02 Dose: Not Given Donepezil HCl (Aricept -) 10 mg PO [facility] Last Admin: 09/13/16 22:52 Dose: 10 mg Enoxaparin Sodium (Lovenox -) 40 mg SQ DAILY [facility] Last Admin: 09/14/16 09:26 Dose: 40 mg Insulin Aspart (Novolog Vial Sliding Scale -) 1 vial SQ Q6HPO [facility] PRN Reason: Protocol Last Admin: 09/14/16 11:19 Dose: 8 units Metoclopramide HCl (Reglan Oral Solution -) 10 mg PO TIDAC [facility] Last Admin: 09/14/16 11:20 Dose: 10 mg Pantoprazole Sodium (Protonix Packets For Oral Suspension -) 40 mg PEG BID [facility] Last Admin: 09/14/16 09:26 Dose: 40 mg Tamsulosin HCl (Flomax -) 0.4 mg PO DAILY@0830 [facility] Last Admin: 09/14/16 08:04 Dose: 0.4 mg Thiamine HCl (Vitamin B1 -) 100 mg PO DAILY [facility] Last Admin: 09/14/16 09:27 Dose: 100 mg A/P s/p Acute Respiratory Failure Bradycardia s/p PEG placement Acute NSTEMI HTN DM Dementia - ASA, statin - continue enteral feeds - O2 to keep SPo2 >90% - enteral feeds - aspiration precautions - DVT/GI prophylaxis
--- NOTE | 2016-09-14 14:30 | PN ---
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 He refused PO trial for me today. Swallowing is not functional at this time. He has been diagnosed with presents with MODERATE PROTEIN-CALORIE MALNUTRITION, with poor po intake/tolerance. Concur with neccessity for TF, as indicated.
[2016-09-14] MEDS: ATORVASTATIN CA 20 MG TABLET (FP) PO SCH (23:07)
[2016-09-14] MEDS: CHLORHEXIDINE GLUCONATE 4% CLEANSER FOR DECOLONIZATION TP SCH (23:07)
[2016-09-14] MEDS: DONEPEZIL HCL 10 MG TABLET (FP) PO SCH (23:07)
[2016-09-15] MEDS: INSULIN SLIDING SCALE (NOVOLOG) 1 VIAL SQ SCH (06:04)
[2016-09-15] MEDS: METOCLOPRAMIDE HCL 5 MG/5 ML UNIT DOSE CUP PO SCH (06:04)
[2016-09-15 07:41] VITALS: PULSE 91
[2016-09-15] MEDS ORDERED: INSULIN (NOVOLOG) ASPART 100 UNITS/ML 10ML VIAL ONE (08:04)
[2016-09-15] MEDS ORDERED: INSULIN DETEMIR 100 UNITS/ML MDV SQ ONE (08:04)
[2016-09-15] MEDS ORDERED: PT OWN MED DRAWER 7, Y5N ONE ×2 (08:05→09:06)
--- NOTE | 2016-09-15 08:44 | DS ---
Physical Examination Vital Signs: Vital Signs Temperature 99.6 F 09/15/16 06:00 Pulse Rate 91 H 09/15/16 06:00 Respiratory Rate 20 09/15/16 06:00 Blood Pressure 151/82 09/15/16 06:00 O2 Sat by Pulse Oximetry (%) 96 09/14/16 22:00 Labs: CBC, BMP 09/11/16 05:35 09/13/16 05:35 <Luis Balderas - Last Filed: 09/15/16 08:44> Vital Signs: Vital Signs Temperature 99.6 F 09/15/16 06:00 Pulse Rate 91 H 09/15/16 06:00 Respiratory Rate 20 09/15/16 06:00 Blood Pressure 151/82 09/15/16 06:00 O2 Sat by Pulse Oximetry (%) 96 09/14/16 22:00 Findings/Remarks: Patient seen and examined. Chart reviewed. Comfortable. No distress. Family at bedside. Constitutional: Yes: No Distress, Calm Eyes: Yes: Conjunctiva Clear Neck: Yes: Supple Cardiovascular: Yes: Regular Rate and Rhythm Respiratory: Yes: CTA Bilaterally Gastrointestinal: Yes: Soft Edema: No Neurological: Yes: Alert Labs: CBC, BMP 09/11/16 05:35 09/13/16 05:35 <Steffanie Jules - Last Filed: 09/15/16 11:06> Discharge Summary Reason For Visit: RENAL FAILURE DEMENTIA DEHYDRATION Current Active Problems Bradycardia (Acute) Dehydration (Acute) Dementia (Acute) Diabetes (Acute) Diarrhea (Acute) Failure to thrive (Acute) GI (gastrointestinal bleed) (Acute) NSTEMI (non-ST elevated myocardial infarction) (Acute) Protein-calorie malnutrition, moderate (Acute) Rectal bleeding (Acute) Renal failure (Acute) - Home Medications Comprehensive Discharge Medication List: Ambulatory Orders Donepezil HCl [Aricept -] 10 mg PO DAILY 06/28/16 Losartan Potassium 25 mg PO DAILY 06/28/16 Atorvastatin Ca [Lipitor] 20 mg PO HS tablet 06/30/16 Tamsulosin HCl [Flomax -] 0.4 mg PO DAILY@0830 cap.er.24h 06/30/16 Metformin HCl 500 mg PO BID #0 07/04/16 Thiamine HCl [B-1] 100 mg PO DAILY #60 tablet 07/04/16 Amox-Tr/K Cl [Augmentin 500-125mg Tablet -] 1 tab PO BID@0800,1730 #5 tablet 03/23 Aspirin Coated [Ecotrin -] 81 mg PO DAILY #30 tab 09/14/16 Metoclopramide Oral Soln [Reglan Oral Solution -] 10 mg PO TIDAC #100 ml Pantoprazole Suspension [Protonix Packets For Oral Suspension -] 40 mg PEG DAILY #30 packet 09/14/16 <Luis Balderas - Last Filed: 09/15/16 08:44> Current Active Problems Bradycardia (Acute) Dehydration (Acute) Dementia (Acute) Diabetes (Acute) Diarrhea (Acute) Failure to thrive (Acute) GI (gastrointestinal bleed) (Acute) NSTEMI (non-ST elevated myocardial infarction) (Acute) Protein-calorie malnutrition, moderate (Acute) Rectal bleeding (Acute) Renal failure (Acute) Hospital Course: The patient is an 80-year-old male with a significant past medical history of dementia, hypertension, hyperlipidemia, diabetes mellitus, renal failure, positive RPR s/p treatment on 07/18, who presented to the emergency department via EMS complaining of diarrhea. Patient found to be dehydrated as well as in Acute renal failure. Patient given fluids and admitted to the floor. Patient has advanced dementia. PEG placed due to inability to eat. Patient is now stable for discharge to home. Family will take care of him. Condition is guarded due to multiple co-morbidities but stable. Medications reconciled. Discussed with family-- agrees with plan. Documentation prepared by Steffanie Jules, acting as a vice president medical affairs for Luis Balderas MD. - Home Medications Comprehensive Discharge Medication List: Ambulatory Orders Donepezil HCl [Aricept -] 10 mg PO DAILY 06/28/16 Losartan Potassium 25 mg PO DAILY 06/28/16 Atorvastatin Ca [Lipitor] 20 mg PO HS tablet 06/30/16 Tamsulosin HCl [Flomax -] 0.4 mg PO DAILY@0830 cap.er.24h 06/30/16 Metformin HCl 500 mg PO BID #0 07/04/16 Thiamine HCl [B-1] 100 mg PO DAILY #60 tablet 07/04/16 Amox-Tr/K Cl [Augmentin 500-125mg Tablet -] 1 tab PO BID@0800,1730 #5 tablet 03/23 Aspirin Coated [Ecotrin -] 81 mg PO DAILY #30 tab 09/14/16 Metoclopramide Oral Soln [Reglan Oral Solution -] 10 mg PO TIDAC #100 ml Pantoprazole Suspension [Protonix Packets For Oral Suspension -] 40 mg PEG DAILY #30 packet 09/14/16 <Steffanie Jules - Last Filed: 09/15/16 11:06> Condition: Improved - Instructions Referrals: Luis Balderas MD [Primary Care Provider] - Disposition: HOME
[2016-09-15] MEDS: AMOX TR/POT CLAV 500MG/125MG TABLETS (FP) PO SCH (09:16)
[2016-09-15] MEDS: TAMSULOSIN HCL 0.4 MG CAP.ER.24H (FP) PO SCH (09:16)
[2016-09-15] MEDS: PANTOPRAZOLE SOD 40 MG SUSPENSION PACKET PEG SCH (09:16)
[2016-09-15] MEDS: ASPIRIN COATED 81 MG TABLET.EC PO SCH (09:17)
[2016-09-15] MEDS: ENOXAPARIN NA (PORCINE) 40 MG/0.4 ML DISP.SYRIN SQ SCH (09:17)
[2016-09-15] MEDS: amLODIPine BESYLATE 5 MG TABLET (FP) PO SCH (09:17)
[2016-09-15] MEDS: THIAMINE HCL 100 MG TABLET (FP) PO SCH (09:17)
--- NOTE | 2016-09-15 10:26 | PN ---
Progress Note (short form) - Note Progress Note: PULMONARY LOW GRADE TEMP/POORLY AROUSABLE PEG FEEDINGS UNDERWAY ANICTERIC DISTANT B/L BREATH SOUNDS S1S2 BS+ PEG IN PLACE SCD"S B/L LABS/MEDS/NOTES/IMAGING REVIEWED ASSESSMENT AND PLAN: s/p Acute Respiratory Failure Bradycardia s/p PEG placement Acute NSTEMI HTN DM Dementia - Would suggest SNF upon discharge - ASA, statin - resume enteral feeds today/check residual - monitor lytes - O2 to keep SPo2 >90% - aspiration precautions - DVT/GI prophylaxis Clive CARDENAS MD
--- NOTE | 2016-09-15 11:17 | PN ---
Progress Note (short form) - Note Progress Note: Chief Complaint: afib History of Present Illness: does not make meaningful conversation, appears comfortable. no overnight events. tolerating peg feeds. possible dc today Current Medications Generic Name Dose Route Start Last Admin Trade Name Freq PRN Reason Stop Dose Admin Acetaminophen 650 mg 09/08/16 17:29 09/10/16 08:45 Tylenol - PO 650 mg Q4H PRN Administration FEVER OR PAIN Albuterol/Ipratropium 1 amp 09/08/16 17:29 Duoneb - NEB Q6H PRN SHORTNESS OF BREATH Amlodipine Besylate 5 mg 09/09/16 10:00 09/15/16 09:17 Norvasc - PO 5 mg DAILY [facility] Administration Amoxicillin/Clavulanate Potassium 1 tab 09/10/16 13:15 09/15/16 09:16 Augmentin - 500mg Tablet PO 1 tab BID@0800,1730 [facility] Administration Aspirin 81 mg 09/09/16 10:00 09/15/16 09:17 Ecotrin - PO 81 mg DAILY [facility] Administration Atorvastatin Calcium 20 mg 09/08/16 22:00 09/14/16 23:07 Lipitor - PO 20 mg HS [facility] Administration Chlorhexidine Gluconate 1 applic 09/08/16 22:00 09/14/16 23:07 Hibiclens For Decolonization - TP Not Given HS [facility] Donepezil HCl 10 mg 09/08/16 22:00 09/14/16 23:07 Aricept - PO 10 mg HS [facility] Administration Enoxaparin Sodium 40 mg 09/09/16 10:00 09/15/16 09:17 Lovenox - SQ 40 mg DAILY [facility] Administration Insulin Aspart 1 vial 09/08/16 18:00 09/15/16 06:04 Novolog Vial Sliding Scale - SQ 6 units Q6HPO [facility] Administration Protocol Metoclopramide HCl 10 mg 09/09/16 07:00 09/15/16 06:04 Reglan Oral Solution - PO 10 mg TIDAC [facility] Administration Pantoprazole Sodium 40 mg 09/13/16 10:00 09/15/16 09:16 Protonix Packets For Oral Suspension - PEG 40 mg BID [facility] Administration Tamsulosin HCl 0.4 mg 09/09/16 08:30 09/15/16 09:16 Flomax - PO 0.4 mg DAILY@0830 [facility] Administration Thiamine HCl 100 mg 09/09/16 10:00 09/15/16 09:17 Vitamin B1 - PO 100 mg DAILY [facility] Administration Vital Signs Period Temp Pulse Resp BP Sys/Farias Pulse Ox Last 24 Hr 97.8 F-99.9 F 91-109 18-22 119-151/63-82 96-98 Constitutional: Yes: No Distress, Calm, Cardiovascular: Yes: regular, S1, S2. No: JVD, Gallop, Murmur Respiratory: Yes: Regular, CTA Bilaterally poor effort No: Accessory Muscle Use , Rales, Wheezes Extremities: No: Cold Edema: No Neurological: No: awake, no significant communication abd nt nd pos bs Psychiatric: No: Agitated no jaundice diaphoresis Labs: CBC, BMP 09/11/16 05:35 09/13/16 05:35 EKG 09/05: poor quality. sinus tachycardia, 121 bpm. right axis deviation. possible lvh. axis has changed and heart rate increased. otherwise similar. Echo here nl lv size/fn. rv not well seen. nl valves. Assessment/Plan 80yo male with h/o HTN, DM, hyperlipidemia, dementia, + rpr (recent tx), who initially presented on 08/27 for dehydration in the setting of diarrhea and poor po intake whose hosptial course now complicated by episode of bradycardia/ACLS. bradycardia - post peg tube placement per report HR down to 37 bpm. Unknown if patient was hemodynamically unstable at the time. --> agonal breathing --> intubation --> subsequent documented hypotension - Episode likely multifactorial - Increased vagal tone from sedation, GI manipulation or pain. Also may have contribution from hypoxia as well as electrolyte abnormalities. Patient had low k and mg at the time. - no further recurrence. Has had multiple recent admissions with no telemetry abnormalities, low suspicion that this is 2/2 underlying conduction disease. no apparent indication for PPM -OK FOR D/C FROM HOSPITAL FROM CV P.O.V. Type II MA (NSTEMI): -dyao-[id number]-vhxg pattern, trop peak at 1.1, no acute ecg changes per notes -normal LV fxn on echo -secondary to coronary hypoperfusion from bradycardia episode with hypotension. -may have underlying chronic/stable CAD but would not pursue ischemic work up given comorbidities and frequent refusal to take medications (hence not a candidate for PCI and mandatory DAPT) -medical mgmt: con't atorvastatin, ASA; no bb (s/p etelvina arrest) HTN - stable on current meds failure to thrive, hypovolemia, CODY: -renal fxn normalized s/p nutritional support/IVF here -s/p PEG now, tolerating feeds, possible dc today
[2016-09-15 11:23] VITALS: BP 147/70; TEMP 98.6
== END 2016-09-15 11:47 | disposition home health service (06) | DRG 682 ==
LOC: JER 20:30 → JERBED 08-28 00:42 → UNDOADMOB 08-28 00:42 → INTOOBSV 08-28 00:42 → JERBED 08-28 01:05 → UNDOADMIN 08-28 01:05 → JERBED 08-28 02:02 → J8W 08-28 02:02 → JERBED 08-28 12:29 → J8W 08-28 12:29 → UNDODISOB 08-28 20:34 → OBSVTOIN 08-29 09:45 → J8W 08-29 17:30 → JICU 09-05 11:45 → J4W 09-08 18:39 → J5S 09-14 12:04
PROVIDERS: ADMIT Internal Medicine; ATTEND Internal Medicine
PROC: 5A1945Z Respiratory Ventilation, 24-96 Consecutive Hours (ICD-10-PCS; 2016-09-05)
PROC: 0BH17EZ Insertion of Endotracheal Airway into Trachea, Via Natural or Artificial Opening (ICD-10-PCS; 2016-09-05)
PROC: 0DH63UZ Insertion of Feeding Device into Stomach, Percutaneous Approach (ICD-10-PCS; principal; 2016-09-06)
PROC: 3E0G76Z Introduction of Nutritional Substance into Upper GI, Via Natural or Artificial Opening (ICD-10-PCS; 2016-09-06)
DX: N17.9 Acute kidney failure, unspecified (principal); J96.00 Acute respiratory failure, unspecified whether with hypoxia or hypercapnia; I21.4 Non-ST elevation (NSTEMI) myocardial infarction; E44.0 Moderate protein-calorie malnutrition; E86.0 Dehydration; E11.9 Type 2 diabetes mellitus without complications; F03.90 Unspecified dementia, unspecified severity, without behavioral disturbance, psychotic disturbance, mood disturbance, and anxiety; Z68.21 Body mass index [BMI] 21.0-21.9, adult; R19.7 Diarrhea, unspecified; R62.7 Adult failure to thrive; R00.1 Bradycardia, unspecified; E78.5 Hyperlipidemia, unspecified; E83.42 Hypomagnesemia; E87.6 Hypokalemia; I10 Essential (primary) hypertension
CPT/HCPCS: 36415; 36600; 70450-TC; 71010-TC; 80048; 80053; 82272; 82550; 82553; 82803; 83605; 83735; 84100; 84132; 84484; 85025; 85027; 85610; 86850; 86900; 86901; 87040; 87086; 93005; 93010; 93306-TC; 94002; 94640; 97116-GP; 97161-GP; 99283-25; G0378; J1644